=== PATIENT | male | born 1960 | race Caucasian/White ===

== ENCOUNTER → 2016-10-06 | Outpatient (REF) | payer BC, OTHER ==
[~2016-10-06] MED LIST: /FEXO18TA OR; ALLO300T OR; AMBI10TA OR; CLAR5CHW OR; DARV100T OR; DEPA500T OR; DILA2TAB; DRISDOL PO; DYAZ37.5 OR; EFFE150C OR; FLEXERIL PO; KETO-28; KETO-28 OR; LISI5TAB OR; LYRI150C OR; MAG OR; NEXI20CA OR; PAXI20TA; POTASSIUM CITRATE1 OR; PRIL20CA OR; ROBA750T OR; TOPI200T OR; TRIC145T19 OR; ULTR200T OR; VERALAN OR; VIT D 4000 PO; ZOCO40TA OR; [UNRECOGNIZED DRUG - OTHER]; desyrel OR; hydrocodone PO
[2016-10-06 13:23] LABS: FERRITIN 16 NG/ML (26-388); PERCENT SATURATION 28.5 % (19.7-37.4); PHOSPHORUS LEVEL 2.6 MG/DL (2.5-4.9); TOTAL IRON BINDING CAPACITY 403 UG/DL (250-450)
[2016-10-06 13:42] LABS: VITAMIN B12 LEVEL 1643 PG/ML
[2016-10-06 13:43] LABS: FOLATE > 24.0 NG/ML
[2016-10-06 15:02] LABS: PRETREATED FOLATE FOR RBCFOL 18.5 NG/ML
== END ==
LOC: M LAB REF 12:36
PROVIDERS: ATTEND Internal Medicine
DX: Z98.84 Bariatric surgery status (principal)

== ENCOUNTER → 2017-02-21 | Outpatient (REF) | payer BC ==
[2017-02-21 14:31] LABS: PERCENT SATURATION 18.9 % (19.7-50.0); PHOSPHORUS LEVEL 2.7 MG/DL (2.5-4.9)
[2017-02-23 11:33] LABS: PRETREATED FOLATE FOR RBCFOL 14.5 NG/ML
== END ==
LOC: M LAB REF 13:30
PROVIDERS: ATTEND Internal Medicine
DX: K91.2 Postsurgical malabsorption, not elsewhere classified (principal); Z98.84 Bariatric surgery status; E55.9 Vitamin D deficiency, unspecified

== ENCOUNTER → 2017-05-08 | Outpatient (REF) | payer BC | LOC: M LAB REF 19:44 | PROVIDERS: ATTEND Physician Assistant | DX: R19.7 Diarrhea, unspecified (principal) ==

== ENCOUNTER → 2017-07-30 | Outpatient (REF) | payer BC ==
[2017-07-31 15:37] LABS: IRON (FE) 80 UG/DL (65-175); PERCENT SATURATION 24.9 % (19.7-50.0); TOTAL IRON BINDING CAPACITY 321 UG/DL (250-450)
== END ==
LOC: M LAB REF 15:06
DX: Z98.84 Bariatric surgery status (principal); D50.9 Iron deficiency anemia, unspecified
CPT/HCPCS: 83550

== ENCOUNTER 2017-09-30 11:16 | Emergency (ER) | payer BC ==
[2017-09-30] MEDS: LIDOCAINE 2% MDV 20 ML VIAL SC (12:30)
== END 2017-09-30 13:36 | disposition home or self-care (01) ==
LOC: M ED 11:16
DX: S01.21XA Laceration without foreign body of nose, initial encounter (principal); W54.8XXA Other contact with dog, initial encounter; Y92.89 Other specified places as the place of occurrence of the external cause; I10 Essential (primary) hypertension; M54.2 Cervicalgia; G89.29 Other chronic pain; F43.10 Post-traumatic stress disorder, unspecified; Z79.899 Other long term (current) drug therapy; Z91.048 Other nonmedicinal substance allergy status; Z88.8 Allergy status to other drugs, medicaments and biological substances; Z98.0 Intestinal bypass and anastomosis status; Z98.890 Other specified postprocedural states
CPT/HCPCS: 12011

== ENCOUNTER → 2017-10-17 | Outpatient (REF) | payer BC ==
[2017-10-17 15:37] LABS: BLOOD UREA NITROGEN 18 MG/DL (7-18)
[2017-10-17 15:37] LABS: GLOMERULAR FILTRATION RATE > 60.0 (>56)
== END ==
LOC: M LABDRAW1 13:16
DX: Z01.812 Encounter for preprocedural laboratory examination (principal)
CPT/HCPCS: 82565

== ENCOUNTER → 2018-01-30 | Outpatient (REF) | payer BC ==
[2018-01-30 17:59] LABS: IRON (FE) 71 UG/DL (65-175); PERCENT SATURATION 22.3 % (19.7-50.0); TOTAL IRON BINDING CAPACITY 319 UG/DL (250-450)
[2018-01-30 18:05] LABS: FOLATE > 24.0 NG/ML; VITAMIN B12 LEVEL > 2000 PG/ML
[2018-02-06 17:28] LABS: VITAMIN B1 LEVEL WHOLE BLOOD 176.5 nmol/L (66.5-200.0)
== END ==
LOC: M LAB REF 17:07
DX: D50.9 Iron deficiency anemia, unspecified (principal); Z98.84 Bariatric surgery status
CPT/HCPCS: 82746

== ENCOUNTER → 2018-05-09 | Outpatient (REF) | payer BC | LOC: M LAB REF 17:20 | DX: S51.801A Unspecified open wound of right forearm, initial encounter (principal); X58.XXXA Exposure to other specified factors, initial encounter; Y92.9 Unspecified place or not applicable; Y93.9 Activity, unspecified ==

== ENCOUNTER → 2018-05-16 | Outpatient (REF) | payer BC | LOC: M LAB REF 17:22 | DX: S51.801A Unspecified open wound of right forearm, initial encounter (principal); W18.30XA Fall on same level, unspecified, initial encounter; Y92.009 Unspecified place in unspecified non-institutional (private) residence as the place of occurrence of the external cause | CPT/HCPCS: 88305 ==

== ENCOUNTER → 2018-07-10 | Outpatient (REF) | payer BC ==
[~2018-07-10] MED LIST changes: +CENTTAB PO; +EFFE150C2; +GABA-843; +MINI1CAP; +PRAZ1CAP; +REME45TA; +XYZA5TAB2 PO
== END ==
LOC: M LAB REF 19:13
PROVIDERS: ATTEND Physician Assistant Medical
DX: R19.7 Diarrhea, unspecified (principal)

== ENCOUNTER → 2018-07-18 | Outpatient (REF) | payer BC | LOC: M LAB REF 09:38 | PROVIDERS: ATTEND Physician Assistant | DX: A04.5 Campylobacter enteritis (principal) ==

== ENCOUNTER → 2018-08-06 | Outpatient (REF) | payer BC ==
[2018-08-06 18:30] LABS: IRON (FE) 79 UG/DL (65-175); PERCENT SATURATION 23.6 % (19.7-50.0); TOTAL IRON BINDING CAPACITY 335 UG/DL (250-450)
[2018-08-06 19:07] LABS: VITAMIN B12 LEVEL > 2000 PG/ML
[2018-08-07 17:35] LABS: FOLATE 16.4 NG/ML
== END ==
LOC: M LAB REF 17:33
PROVIDERS: ATTEND Internal Medicine
DX: Z98.84 Bariatric surgery status (principal); D50.9 Iron deficiency anemia, unspecified

== ENCOUNTER → 2018-08-26 | Outpatient (CLI) | payer BC ==
--- NOTE | 2018-09-07 23:38 | ECWPNPC ---
PATIENT NAME: JOE DOTSON : 1960 GENDER: MALE VISIT DATE: 08/26/2018 DISCHARGE DATE: 08/26/18 1152 VISIT LOCKED DATE TIME: PHYSICIAN: BARBRA HART MD RESOURCE: BARBRA HART MD REASON FOR APPOINTMENT 1. CHRONIC NECK PAIN HISTORY OF PRESENT ILLNESS NEW PATIENT CONSULT: WHEN DID YOUR PAIN FIRST START? . BRIEFLY DESCRIBE HOW YOUR PAIN STARTED? . HOW DOES YOUR PAIN CHANGE WITH TIME? . DOES YOUR PAIN AWAKEN YOU FROM SLEEP? . HOW MANY HOURS OF SLEEP DO YOU NORMALLY GET? . ANY DIAGNOSTIC TESTING? . FACILITY WHERE TESTS WERE DONE? ____. PAIN TREATMENT TREATMENT YES CANCER HAVE YOU EVER HAD ANY TYPE OF CANCER?NO NO. PAIN SCREENING: PATIENT HAS A COMPLAINT OF ACUTE OR CHRONIC PAIN :YES 58 YEAR OLD MALE PATIENT WITH A HISTORY OF CHRONIC NECK PAIN. THE PATIENT DESCRIBES THE PAIN ACHING, BURNING, AND CONTINUOUS WITH A PAIN SCORE OF 7-10/10 DEPENDING ON PHYSICAL ACTIVITY. 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 THE PATIENT SAYS THE PAIN STARTS IN HIS NECK AND RADIATES INTO HIS HEAD CAUSING HEADACHES AND DOWN INTO HIS SHOULDERS AND ARMS. THE PATIENT SAYS THAT HE HAS SOME NUMBNESS DOWN HIS ARMS. THE PATIENT HAS DIFFICULTY DOING DAILY ACTIVITIES SUCH WORKING AROUND HIS HOUSE, COOKING, AND CLEANING DUE TO THIS PAIN. THE PATIENT SAYS HE HAD A TUMOR REMOVED AND RADIATION OVER HIS LEFT SHOULDER WHERE THERE IS NOW A SCAR THAT SOMETIMES OPENS AND DRAINS. PATIENT DENIES UNEXPLAINABLE WEIGHT LOSS, FEVER, CHILLS, NEW CHANGES ON HIS URINARY OR BOWEL CONTROL. FALL RISK SCREENING: SCREENING :NO FALLS IN THE PAST YEAR ELIZABETH INVENTORY: QUESTIONNAIRE ASSESSEDTBD SCORE VALUE CALCULATED TBD CURRENT MEDICATIONS TAKING TRAMADOL HCL 50 MG TABLET 1 TABLET NEEDED ORALLY 3 TIMES DAILY NEEDED TAKING FLEXERIL 10 MG TABLET 1 TABLET ORALLY TWICE DAILY TAKING XYZAL 5 MG TABLET 1 TABLET IN THE EVENING ORALLY ONCE A DAY TAKING EFFEXOR XR 150 MG CAPSULE EXTENDED RELEASE 24 HOUR 2 CAPSULE WITH FOOD ORALLY ONCE A DAY TAKING EFFEXOR XR 75 MG CAPSULE EXTENDED RELEASE 24 HOUR 1 CAPSULE WITH FOOD ORALLY ONCE A DAY TAKING NEXIUM 40 MG CAPSULE DELAYED RELEASE 1 CAPSULE ORALLY TWICE DAILY TAKING CENTRUM ADULTS - TABLET ORALLY DAILY TAKING VITAMIN B12 500 MCG TABLET 1 TABLET ORALLY ONCE A DAY TAKING REMERON 45 MG TABLET 1 TABLET AT BEDTIME ORALLY ONCE A DAY TAKING LISINOPRIL 5 MG TABLET 1 TABLET ORALLY ONCE A DAY TAKING KLONOPIN 0.5 MG TABLET 1 TABLET ORALLY FOUR TIMES PER DAY TAKING NEURONTIN 300 MG CAPSULE 1 CAPSULE ORALLY TWICE DAILY TAKING PRAZOSIN HCL 2 MG CAPSULE 2 CAPSULE AT BEDTIME ORALLY ONCE A DAY TAKING TRAZODONE HCL 50 MG TABLET 1 TABLET AT BEDTIME ORALLY ONCE A DAY TAKING IRON 325 (65 FE) MG TABLET 1 TABLET ORALLY TWICE DAILY NOT-TAKING ALLOPURINOL 300 MG TABLET 1 TABLET ORALLY ONCE A DAY NOT-TAKING MAGNESIUM GLUCONATE 500 MG TABLET DIRECTED ORALLY NOT-TAKING VERAPAMIL HCL 300 MG CAPSULE EXTENDED RELEASE 24 HOUR 1 CAPSULE AT BEDTIME ORALLY ONCE A DAY NOT-TAKING ZOCOR 40 MG TABLET 1 TABLET EVERY EVENING ORALLY ONCE A DAY NOT-TAKING MYA 180 MG TABLET 1 TABLET ORALLY ONCE A DAY NOT-TAKING METHOCARBAMOL 750 MG TABLET 1 TABLET ORALLY EVERY 4 HRS NOT-TAKING DARVOCET-N 100 100-650 MG TABLET 1 TABLET NEEDED FOR PAIN ORALLY EVERY 4 HRS NOT-TAKING PAXIL 20 MG TABLET 1 TABLET IN THE MORNING ORALLY ONCE A DAY NOT-TAKING LYRICA 300 MG CAPSULE 1 CAPSULE ORALLY TWICE A DAY NOT-TAKING PRILOSEC 20 MG CAPSULE DELAYED RELEASE 1 CAPSULE ORALLY ONCE A DAY NOT-TAKING LUNESTA 2 MG TABLET 1 TABLET IMMEDIATELY BEFORE BEDTIME ORALLY ONCE A DAY NOT-TAKING ULTRAM ER 200 MG TABLET EXTENDED RELEASE 24 HOUR 1 TABLET ORALLY ONCE A DAY NOT-TAKING TOPAMAX 200 MG TABLET 1 TABLET ORALLY TWICE A DAY NOT-TAKING POTASSIUM CITRATE 1080 MG TABLET EXTENDED RELEASE 1 TABLET WITH MEALS ORALLY THREE TIMES A DAY MEDICATION LIST REVIEWED AND RECONCILED WITH THE PATIENT PAST MEDICAL HISTORY HYPERLIPIDEMIA ESOPHAGEAL REFLUX KIDNEY STONES HYPERTENSION PTSD BARRETTS ESOPHAGUS CHRONIC KIDNEY DISEASE SYNDROME BILATERRAL CARPAL TUNNEL ALLERGIES ZANAFLEX: BRADYCARDIA: SIDE EFFECTS SURGICAL HISTORY HERNIA REPAIR GALL BLADDER TUMOR LITHOTRIPSY GASTIC BYPASS 2012 ILATERAL CARPAL TUNNEL LEFT MOST RECENT [id number] FAMILY HISTORY FATHER: ALIVE MOTHER: , DIAGNOSED WITH CANCER SIBLINGS: DIAGNOSED WITH CANCER MATERNAL GRAND MOTHER: DIAGNOSED WITH DIABETES 2 SISTER(S) . 1 SON(S) , 1 DAUGHTER(S) - HEALTHY. NO PROSTATE,KIDNEY OR BLADDER CANCERMOTHER WITH BREAST CANCERSISTER WITH UTERINE CANCERGRANDFATHER UNKNOWN CANCER. SOCIAL HISTORY GENERAL: TOBACCO USE ARE YOU A:NONSMOKER ALCOHOL SCREENING DID YOU HAVE A DRINK CONTAINING ALCOHOL IN THE PAST YEAR?NO POINTS0 INTERPRETATIONNEGATIVE RECREATIONAL DRUG USE DRUG USE?NO CAFFEINE CAFFEINE USE?NO DRUZE DRUZE EPISCOPALIAN LANGUAGE LANGUAGES SPOKEN:CZECH EDUCATION LEVEL OF EDUCATION:NOT ANSWERED [employer] LEARNING BARRIERS / SPECIAL NEEDS SPECIAL DEVICES?YES CPAP OCCUPATION: DO YOU FEEL SAFE IN YOUR ENVIRONMENT? NO. DIET: DO YOU FEEL SAFE IN YOUR ENVIRONMENT? NODISABLED FROM WORK . EXERCISE: DO YOU FEEL SAFE IN YOUR ENVIRONMENT? NODISABLED FROM WORK , REGULAR PORTIION CONTROOLLED. MARITAL STATUS: DO YOU FEEL SAFE IN YOUR ENVIRONMENT? NODISABLED FROM WORK , REGULAR PORTIION CONTROOLLED, DAILY, WALKS. OTHERS AT HOME: DO YOU FEEL SAFE IN YOUR ENVIRONMENT? NODISABLED FROM WORK , REGULAR PORTIION CONTROOLLED, DAILY, WALKS, . IMMUNIZATION PROGRAM DO YOU FEEL SAFE IN YOUR ENVIRONMENT? NODISABLED FROM WORK , REGULAR PORTIION CONTROOLLED, DAILY, WALKS, , SPOUSE, CHILDREN. NEW PATIENT PAIN DIARY MONOGAMOUS? YES. HOUSING: PFS REFERRAL NEEDED? NO, CLERGY REFERRAL NEEDED? NO, PUBLIC HEALTH REFERRAL NEEDED? NO, WAS THE PROVIDER NOTIFIED OF ANY PERTINENT INFO? NO, HAS THE PATIENT BEEN EDUCATED REGARDING HIS/HER PLAN OF CARE? YES, HAS THE PATIENT BEEN EDUCATED REGARDING PAIN, THE RISK FOR PAIN, THE IMPORTANCE OF EFFECTIVE PAIN MANAGEMENT, AND THE PAIN ASSESSMENT PROCESS? YES. ADVANCE DIRECTIVE ADVANCE DIRECTIVE DISCUSSED WITH PATIENT:YES NOT A SMOKER OR ETOH. 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 HOSPITALIZATION/MAJOR DIAGNOSTIC PROCEDURE SURGERY RELATED REVIEW OF SYSTEMS REVIEWED BY: PROVIDER: BARBRA HART MD . CONSTITUTIONAL: ANY CHANGE IN YOUR MEDICAL CONDITION? NO . CHILLS NO . FEVER NO . INFECTION: DO YOU HAVE NEW INFECTIONS? NO . DO YOU HAVE HISTORY OF MRSA? NO . MUSCULOSKELETAL: ANY NEW PATTERNS OF PAIN OR NUMBNESS? NO . SYTEMIC LUPUS NO . GASTROENTEROLOGY: ANY NEW CHANGE IN BOWEL CONTROL? NO . BARRETTS ESOPHAGUS NO . CIRRHOSIS NO . HEPATITIS NO . LIVER FAILURE NO . ACID REFLUX YES . UNEXPLAINED WEIGHT LOSS NO . GENITOURINARY: ANY NEW CHANGE IN BLADDER CONTROL? NO . IS THERE A CHANCE YOU COULD BE ? NO . HEMATOLOGY/LYMPH: DO YOU TAKE ANY BLOOD THINNERS? (FOR EXAMPLE- COUMADIN, PLAVIX, AGGRENOX, PLATEL, PRADAXA, OR XARELTO) NO . WHEN WAS YOUR LAST DOSE? DATE: TIME: . LOW PLATELET COUNT NO . SICKLE CELL DISEASE NO . VON WILLIEBRANDS NO . FACTOR V LEIDEN NO . THALLASEMIA NO . ANEMIA NO . EASY BRUISING NO . NEUROLOGY: HAVE YOU FALLEN IN THE PAST 12 MONTHS? YES FEEDING CHICKENS GET UNDERFOOT AND FELL INTO WALL . ANY NEW EXTREMITY NUMBNESS OR WEAKNESS? NO RESULTS OF NERVE CONDUCTION SHOW DAMAGE IN NECK . HEAD INJURY NO . DEMENTIA NO . CEREBRAL PALSY NO . MULTIPLE SCLEROSIS NO . DIZZINESS NO . HEADACHE NO . STROKES NO . VERTIGO NO . CARDIOLOGY: DO YOU HAVE A PACEMAKER OR DEFIBRILLATOR? NO . ANGINA NO . HEART ATTACK NO . HEART SURGERY NO . CONGESTIVE HEART FAILURE/FLUID OVERLOAD NO . CHEST PAIN NO . HIGH BLOOD PRESSURE NO . IRREGULAR HEART BEAT NO . RESPIRATORY: HAVE YOU BEEN SICK IN THE PAST WEEK? NO . FEVER NO . FLU LIKE SYMPTOMS? NO . CPAP NO . BYPAP NO . ASTHMA NO . EMPHYSEMA NO . CHRONIC LUNG DISEASES NO . SHORTNESS OF BREATH ON EXERTION NO . DO YOU USE ANY TYPE OF TOBACCO (SMOKE, SMOKELESS, CHEW)? NO . COUGH NO . SNORING NO . INTEGUMENTARY: DO YOU HAVE ANY RASHES OR OPEN SORES? NO . ALLERGIC/IMMUNO: ARE YOU ALLERGIC TO IV DYE? NO . ANY NEW ALLERGIES? NO . PSYCHIATRIC: DO YOU HAVE THOUGHTS OF HURTING YOURSELF OR SOMEONE ELSE? 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 ARE YOU ABUSED, NEGLECTED, OR IN AN UNSAFE ENVIRONMENT? NO . ENDOCRINOLOGY: ARE YOU DIABETIC? NO . THYROID DISORDER NO . OTHER: DO YOU NEED ANY PRESCRIPTIONS? NO . IF YES, PLEASE LIST: ____ . ANY NEW PROBLEMS WITH YOUR MEDICATIONS? NO . WHEN DID YOU LAST EAT? ____ . WHEN DID YOU LAST DRINK? ____ . WHAT DID YOU LAST DRINK? ____ . NAME OF PERSON DRIVING YOU HOME? ____ . DO YOU HAVE ANY OTHER QUESTIONS OR CONCERNS NO . VITAL SIGNS WT 319 LBS, HT 69 IN, BMI 47.10 INDEX, BP 164/90 MM HG, HR 72 /MIN, RR 16 /MIN, TEMP 98.5 F, OXYGEN SAT % 95%, SAFE IN ENV? (Y/N) YES, NA INITIALS SC 10:25, REVIEWED BY: KG. EXAMINATION GENERAL EXAMINATION: PATIENT IS ALERT O X 3 AND COOPERATIVE. LUNGS CLEAR, TO AUSCULTATION. HEART: NO MURMURS OR GALLOPS; FACIAL CRANIAL NERVES ARE GROSSLY NORMAL. GOOD SYMMETRY OF FACIAL MUSCLE MOVEMENT. NORMAL VISUAL ROONEY. TENDERNESS OVER THE NECK AREA. PRESENCE OF TRIGGER POINTS AND BANDS OF TISSUE WITH RESTRICTION OF MOVEMENT OF THE NECK. PAIN INCREASES OVER THE CERVICAL FACET JOINTS WITH EXTENSION AND LATERAL ROTATION OF THE NECK. SCAR OVER THE LEFT SHOULDER WITH REDUCTION IN MUSCLE MASS. MRI OF THE CERVICAL SPINE DONE ON 10/24/2017 SHOWS FACET ARTHROPATHY CHANGES AND BULGING DISCS AT MULTIPLE LEVELS. EMG DONE ON 01/16/2018 SHOWS RADICULOPATHY AT C6-C7. ASSESSMENTS MYALGIA, OTHER SITE - M79.18 (PRIMARY) SPONDYLOSIS OF CERVICAL REGION WITHOUT MYELOPATHY OR RADICULOPATHY - M47.812 CERVICAL RADICULOPATHY - M54.12 TREATMENT MYALGIA, OTHER SITE CLINICAL NOTES: WE DISCUSSED SEVERAL ISSUES WITH MR. DOTSON'S PAIN MANAGEMENT CASE. DUE TO THE TRIGGER POINTS, BANDS OF TISSUE, AND RESTRICTION OF MOVEMENT, I WOULD LIKE TO MOVE FORWARD WITH A TRIGGER POINT INJECTION AT THIS TIME. WE DISCUSSED THE BENEFITS, RISKS, AND ALTERNATIVES OF THE INJECTION AND THE PATIENT WOULD LIKE TO PROCEED. I DISCUSSED THE CASE WITH DR. KIM REGARDING THE WOUND ON THE PATIENT'S LEFT SHOULDER AND WE ARE ABLE TO PROCEED WITH THE INJECTION. I WOULD ALSO LIKE TO DISCUSS THE CASE WITH DR. PARKER. DEPENDING ON THE RESULTS OF THE TRIGGER POINT INJECTION, THE PATIENT WILL CONSIDER A THERAPEUTIC FACET BLOCK IN THE FUTURE. THE PATIENT WILL FOLLOW UP IN 6 WEEKS. INSTRUCTIONS WERE GIVEN, QUESTIONS WERE ANSWERED, PATIENT REPORTS UNDERSTANDING AND AGREES WITH THE PLAN. I, AXEL SEVILLA, DOCUMENTED THE ABOVE INFORMATION ACTING A SCRIBE FOR DR. HART. I HAVE REVIEWED THE ABOVE DOCUMENT, WRITTEN BY AXEL DIAL AND I VERIFY THAT IT IS ACCURATE. DEAR DR. PARKER:THANK YOU FOR YOUR KIND REFERRAL OF MR. DOTSON. IF YOU WANT TO DISCUSS HIS CASE WITH ME PLEASE CALL ME AT THE PAIN CENTER AT [phone]. SINCERELY,BARBRA HART, [facility]. OTHERS NOTES: TRIGGER POINT INJECTION: YOUR EXPERIENCE MATERIAL WAS PRINTED,TRIGGER POINT INJECTION MATERIAL WAS PRINTED. PREVENTIVE MEDICINE PAIN CLINIC TEACHING: PROCEDURE TEACHING PT STATED HE HAS HAD TRIGGER POINT INJECTIONS IN THE PAST SO HE WAS FAMILIAR WITH THE PROCEDURE. PRE-PROCEDURE INSTRUCTIONS REVIEWED WITH PT AND HE VERBALIZED UNDERSTANDING. AD. PROCEDURE CODES FA211 ESTABILISHED PATIENT [facility] CHARGE G8427 CURRENT MEDS W/DOSAGES DOCUMENTED G8730 PAIN ASSESS POS TOOL F/U PLAN DOC DISPOSITION & COMMUNICATION FOLLOW UP 6 WEEKS ELECTRONICALLY SIGNED BY BARBRA HART MD, MD ON 09/07/2018 AT 05:26 PM EST DISCLAIMER : THIS IS A VISIT SUMMARY EXTRACTED FROM THE [employer] CHART. IT IS NOT A COPY OF THE [employer] PROGRESS NOTE. PHIL
== END ==
LOC: M PAIN 10:30
PROVIDERS: ATTEND Anesthesiology
DX: M79.18 Myalgia, other site (principal); M47.812 Spondylosis without myelopathy or radiculopathy, cervical region; M54.12 Radiculopathy, cervical region; K21.9 Gastro-esophageal reflux disease without esophagitis; E78.5 Hyperlipidemia, unspecified; F43.10 Post-traumatic stress disorder, unspecified; N18.9 Chronic kidney disease, unspecified; E66.01 Morbid (severe) obesity due to excess calories; Z68.42 Body mass index [BMI] 45.0-49.9, adult; Z79.899 Other long term (current) drug therapy; Z88.8 Allergy status to other drugs, medicaments and biological substances; Z98.84 Bariatric surgery status

== ENCOUNTER → 2018-09-03 | Outpatient (CLI) | payer BC ==
[~2018-09-03] MED LIST changes: +BUPIVACAINE HCL 0.25% 10 ML VIAL As Ordered ONE; +BUPIVACAINE HCL 0.25% 30 ML VIAL As Ordered ONE; +TRIAMCINOLONE ACETONIDE SUSP 40 MG/ML VIAL (J3301) As Ordered ONE; +diazePAM 5 MG TAB As Ordered ONE; +oxyCODONE 5MG TAB As Ordered ONE
--- NOTE | 2018-09-19 00:05 | ECWPNPC ---
PATIENT NAME: JOE DOTSON : 1960 GENDER: MALE VISIT DATE: 09/03/2018 DISCHARGE DATE: 09/03/18 1624 VISIT LOCKED DATE TIME: PHYSICIAN: BARBRA HART MD RESOURCE: BARBRA HART MD REASON FOR APPOINTMENT 1. TPI HISTORY OF PRESENT ILLNESS HISTORY OF PRESENT ILLNESS: PAIN THE PATIENT DESCRIBES THE PAIN... FALL RISK SCREENING: SCREENING :NO FALLS IN THE PAST YEAR CURRENT MEDICATIONS TAKING TRAMADOL HCL 50 MG TABLET 1 TABLET NEEDED ORALLY 3 TIMES DAILY NEEDED, NOTES: 09/03/18 AM TAKING FLEXERIL 10 MG TABLET 1 TABLET ORALLY TWICE DAILY, NOTES: 09/03/18 AM TAKING XYZAL 5 MG TABLET 1 TABLET IN THE EVENING ORALLY ONCE A DAY, NOTES: 09/03/18 AM TAKING EFFEXOR XR 150 MG CAPSULE EXTENDED RELEASE 24 HOUR 2 CAPSULE WITH FOOD ORALLY ONCE A DAY, NOTES: 09/03/18 AM TAKING EFFEXOR XR 75 MG CAPSULE EXTENDED RELEASE 24 HOUR 1 CAPSULE WITH FOOD ORALLY ONCE A DAY, NOTES: 09/03/18 AM TAKING NEXIUM 40 MG CAPSULE DELAYED RELEASE 1 CAPSULE ORALLY TWICE DAILY, NOTES: 09/03/18 AM TAKING CENTRUM ADULTS - TABLET ORALLY DAILY, NOTES: 09/03/18 AM TAKING VITAMIN B12 500 MCG TABLET 1 TABLET ORALLY ONCE A DAY, NOTES: 09/03/18 AM TAKING REMERON 45 MG TABLET 1 TABLET AT BEDTIME ORALLY ONCE A DAY, NOTES: 09/02/18 TAKING LISINOPRIL 5 MG TABLET 1 TABLET ORALLY ONCE A DAY, NOTES: 09/02/18 TAKING KLONOPIN 0.5 MG TABLET 1 TABLET ORALLY FOUR TIMES PER DAY, NOTES: 09/03/18 AM TAKING NEURONTIN 300 MG CAPSULE 1 CAPSULE ORALLY TWICE DAILY, NOTES: 09/03/18 AM TAKING PRAZOSIN HCL 2 MG CAPSULE 2 CAPSULE AT BEDTIME ORALLY ONCE A DAY, NOTES: 09/02/18 TAKING TRAZODONE HCL 50 MG TABLET 1 TABLET AT BEDTIME ORALLY ONCE A DAY, NOTES: 09/02/18 TAKING IRON 325 (65 FE) MG TABLET 1 TABLET ORALLY TWICE DAILY, NOTES: 09/03/18 AM NOT-TAKING ALLOPURINOL 300 MG TABLET 1 TABLET ORALLY ONCE A DAY NOT-TAKING MAGNESIUM GLUCONATE 500 MG TABLET DIRECTED ORALLY NOT-TAKING VERAPAMIL HCL 300 MG CAPSULE EXTENDED RELEASE 24 HOUR 1 CAPSULE AT BEDTIME ORALLY ONCE A DAY NOT-TAKING ZOCOR 40 MG TABLET 1 TABLET EVERY EVENING ORALLY ONCE A DAY NOT-TAKING MYA 180 MG TABLET 1 TABLET ORALLY ONCE A DAY NOT-TAKING METHOCARBAMOL 750 MG TABLET 1 TABLET ORALLY EVERY 4 HRS NOT-TAKING DARVOCET-N 100 100-650 MG TABLET 1 TABLET NEEDED FOR PAIN ORALLY EVERY 4 HRS NOT-TAKING PAXIL 20 MG TABLET 1 TABLET IN THE MORNING ORALLY ONCE A DAY NOT-TAKING LYRICA 300 MG CAPSULE 1 CAPSULE ORALLY TWICE A DAY NOT-TAKING PRILOSEC 20 MG CAPSULE DELAYED RELEASE 1 CAPSULE ORALLY ONCE A DAY NOT-TAKING LUNESTA 2 MG TABLET 1 TABLET IMMEDIATELY BEFORE BEDTIME ORALLY ONCE A DAY NOT-TAKING ULTRAM ER 200 MG TABLET EXTENDED RELEASE 24 HOUR 1 TABLET ORALLY ONCE A DAY NOT-TAKING TOPAMAX 200 MG TABLET 1 TABLET ORALLY TWICE A DAY NOT-TAKING POTASSIUM CITRATE 1080 MG TABLET EXTENDED RELEASE 1 TABLET WITH MEALS ORALLY THREE TIMES A DAY MEDICATION LIST REVIEWED AND RECONCILED WITH THE PATIENT PAST MEDICAL HISTORY HYPERLIPIDEMIA ESOPHAGEAL REFLUX KIDNEY STONES HYPERTENSION PTSD BARRETTS ESOPHAGUS CHRONIC KIDNEY DISEASE SYNDROME BILATERRAL CARPAL TUNNEL ALLERGIES ZANAFLEX: BRADYCARDIA: SIDE EFFECTS SURGICAL HISTORY HERNIA REPAIR GALL BLADDER TUMOR LITHOTRIPSY GASTIC BYPASS 2012 ILATERAL CARPAL TUNNEL LEFT MOST RECENT [phone] FAMILY HISTORY FATHER: ALIVE MOTHER: , DIAGNOSED WITH CANCER SIBLINGS: DIAGNOSED WITH CANCER MATERNAL GRAND MOTHER: DIAGNOSED WITH DIABETES 2 SISTER(S) . 1 SON(S) , 1 DAUGHTER(S) - HEALTHY. NO PROSTATE,KIDNEY OR BLADDER CANCERMOTHER WITH BREAST CANCERSISTER WITH UTERINE CANCERGRANDFATHER UNKNOWN CANCER. SOCIAL HISTORY GENERAL: TOBACCO USE ARE YOU A:NONSMOKER ALCOHOL SCREENING DID YOU HAVE A DRINK CONTAINING ALCOHOL IN THE PAST YEAR?NO POINTS0 INTERPRETATIONNEGATIVE RECREATIONAL DRUG USE DRUG USE?NO CAFFEINE CAFFEINE USE?NO ZOROASTRIAN ZOROASTRIAN SAMARITAN LANGUAGE LANGUAGES SPOKEN:TAMAZIGHT EDUCATION LEVEL OF EDUCATION:NOT ANSWERED [employer] LEARNING BARRIERS / SPECIAL NEEDS SPECIAL DEVICES?YES CPAP OCCUPATION: DO YOU FEEL SAFE IN YOUR ENVIRONMENT? NO. DIET: DO YOU FEEL SAFE IN YOUR ENVIRONMENT? NODISABLED FROM WORK . EXERCISE: DO YOU FEEL SAFE IN YOUR ENVIRONMENT? NODISABLED FROM WORK , REGULAR PORTIION CONTROOLLED. MARITAL STATUS: DO YOU FEEL SAFE IN YOUR ENVIRONMENT? NODISABLED FROM WORK , REGULAR PORTIION CONTROOLLED, DAILY, WALKS. OTHERS AT HOME: DO YOU FEEL SAFE IN YOUR ENVIRONMENT? NODISABLED FROM WORK , REGULAR PORTIION CONTROOLLED, DAILY, WALKS, . IMMUNIZATION PROGRAM DO YOU FEEL SAFE IN YOUR ENVIRONMENT? NODISABLED FROM WORK , REGULAR PORTIION CONTROOLLED, DAILY, WALKS, , SPOUSE, CHILDREN. NEW PATIENT PAIN DIARY MONOGAMOUS? YES. PAIN CLINIC PFS, CLERGY, PUBLIC HEALTH REFERRALS PFS REFERRAL NEEDED?NO CLERGY REFERRAL NEEDED?NO PUBLIC HEALTH REFERRAL NEEDED?NO WAS THE PROVIDER NOTIFIED OF ANY PERTINENT INFO?NO HAS THE PATIENT BEEN EDUCATED REGARDING HIS/HER PLAN OF CARE?YES HAS THE PATIENT BEEN EDUCATED REGARDING PAIN, THE RISK FOR PAIN, THE IMPORTANCE OF EFFECTIVE PAIN MANAGEMENT, AND THE PAIN ASSESSMENT PROCESS?YES HOUSING: PFS REFERRAL NEEDED? NO, CLERGY REFERRAL NEEDED? NO, PUBLIC HEALTH REFERRAL NEEDED? NO, WAS THE PROVIDER NOTIFIED OF ANY PERTINENT INFO? NO, HAS THE PATIENT BEEN EDUCATED REGARDING HIS/HER PLAN OF CARE? YES, HAS THE PATIENT BEEN EDUCATED REGARDING PAIN, THE RISK FOR PAIN, THE IMPORTANCE OF EFFECTIVE PAIN MANAGEMENT, AND THE PAIN ASSESSMENT PROCESS? YES. ADVANCE DIRECTIVE ADVANCE DIRECTIVE DISCUSSED WITH PATIENT:YES DECLINED NOT A SMOKER OR ETOH. 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 HOSPITALIZATION/MAJOR DIAGNOSTIC PROCEDURE SURGERY RELATED REVIEW OF SYSTEMS REVIEWED BY: PROVIDER: . CONSTITUTIONAL: ANY CHANGE IN YOUR MEDICAL CONDITION? NO . CHILLS NO . FEVER NO . INFECTION: DO YOU HAVE NEW INFECTIONS? NO . DO YOU HAVE HISTORY OF MRSA? NO . MUSCULOSKELETAL: ANY NEW PATTERNS OF PAIN OR NUMBNESS? NO . GASTROENTEROLOGY: ANY NEW CHANGE IN BOWEL CONTROL? NO . GENITOURINARY: ANY NEW CHANGE IN BLADDER CONTROL? NO . IS THERE A CHANCE YOU COULD BE ? NO . HEMATOLOGY/LYMPH: DO YOU TAKE ANY BLOOD THINNERS? (FOR EXAMPLE- COUMADIN, PLAVIX, AGGRENOX, PLATEL, PRADAXA, OR XARELTO) NO . WHEN WAS YOUR LAST DOSE? DATE: TIME: . NEUROLOGY: HAVE YOU FALLEN IN THE PAST 12 MONTHS? YES, FELL 2 DAYS AGO FEEDING CHICKENS, TRIPPED OVER THEM, PT DENIES INJURIES . ANY NEW EXTREMITY NUMBNESS OR WEAKNESS? NO . CARDIOLOGY: DO YOU HAVE A PACEMAKER OR DEFIBRILLATOR? NO . RESPIRATORY: HAVE YOU BEEN SICK IN THE PAST WEEK? NO . FEVER NO . FLU LIKE SYMPTOMS? NO . COUGH NO . INTEGUMENTARY: DO YOU HAVE ANY RASHES OR OPEN SORES? YES, LEFT WRIST S/P CARPAL TUNNEL REPAIR . ALLERGIC/IMMUNO: ARE YOU ALLERGIC TO IV DYE? NO . ANY NEW ALLERGIES? NO . PSYCHIATRIC: DO YOU HAVE THOUGHTS OF HURTING YOURSELF OR SOMEONE ELSE? NO . ARE YOU ABUSED, NEGLECTED, OR IN AN UNSAFE ENVIRONMENT? YES, PT STATES HE HAS PTSD SOMETIMES THOUGHTS OF HURTING SELF, NO PLAN, JUST THOUGHTS . ENDOCRINOLOGY: ARE YOU DIABETIC? NO . OTHER: DO YOU NEED ANY PRESCRIPTIONS? NO . IF YES, PLEASE LIST: ____ . ANY NEW PROBLEMS WITH YOUR MEDICATIONS? NO . WHEN DID YOU LAST EAT? 09/03/18 0600 . WHEN DID YOU LAST DRINK? 09/03/18 1200 . WHAT DID YOU LAST DRINK? GATORADE . NAME OF PERSON DRIVING YOU HOME? DAD . DO YOU HAVE ANY OTHER QUESTIONS OR CONCERNS NO . VITAL SIGNS WT 313.6 LBS, HT 69 IN, BMI 46.31 INDEX, BP 160/82 MM HG, HR 70 /MIN, RR 16 /MIN, TEMP 98.0 F, OXYGEN SAT % 955, NA INITIALS AW 1407, REVIEWED BY: EM. ASSESSMENTS MYALGIA, OTHER SITE - M79.18 (PRIMARY) PROCEDURES PN TRIGGER POINT INJECTION WITH STEROIDS PRE PROCEDURE DIAGNOSIS 1. MYALGIA 2. PAIN AT BILATERAL NECK AREA AND BILATERAL SHOULDER AREA POST PROCEDURE DIAGNOSIS 1. MYALGIA 2. PAIN AT BILATERAL NECK AREA AND BILATERAL SHOULDER AREA PROCEDURE TRIGGER POINT INJECTION AT BILATERAL NECK AREA AND BILATERAL SHOULDER AREA SURGEON DR. BARBRA HART PACKAGER NONE ANESTHESIA LOCAL PRE PROCEDURE NOTE THE PATIENT HAS A HISTORY OF CHRONIC PAIN AT THE RIGHT AND LEFT NECK AREA AND RIGHT AND LEFT SHOULDER AREA. I EVALUATE THE PATIENT AND REVIEWED THE CHART. THERE IS EVIDENCE OF BANDS OF TISSUE WITH RESTRICTION OF MOVEMENT AND PRESENCE OF TRIGGER POINT AT THE AFFECTED AREA. I WENT OVER THE RISKS, ALTERNATIVES, AND BENEFITS ASSOCIATED WITH THIS PROCEDURE. THE PATIENT WOULD LIKE TO PROCEED AND GIVE CONSENT TO PERFORMED THE PROCEDURE. THE PATIENT DENIES UNEXPLAINABLE WEIGHT LOSS, FEVER, CHILLS, OR NEW CHANGES IN URINARY OR BOWEL CONTROL DESCRIPTION OF PROCEDURE THE PATIENT WAS BROUGHT TO THE PROCEDURE ROOM AND PLACED IN THE SITTING POSITION. THE AREA WAS CLEANED WITH ALCOHOL. THE PROCEDURE WAS DONE USING ASEPTIC STERILE TECHNIQUE. I CHECKED LATERALITY AND THE LEVEL WHERE THE PROCEDURE WAS GOING TO BE PERFORMED WITH THE PATIENT AND THE SUPPORTING STAFF AT THE MOMENT OF THE TIME OUT IN THE PROCEDURE ROOM. USING A 25-GAUGE NEEDLE, TRIGGER POINTS WERE INJECTED AT THE RIGHT AND LEFT NECK AREA AND RIGHT AND LEFT SHOULDER AREA WITH A TOTAL OF 40 ML OF BUPIVACAINE 0.25% AND KENALOG 40 MG. THERE WAS NO EVIDENCE OF BLOOD, PARESTHESIA OR CEREBROSPINAL FLUID DURING THE PROCEDURE. THE PATIENT WAS SENT TO THE RECOVERY ROOM. THE PATIENT WAS MOVING THE EXTREMITIES AND DOING WELL. THERE WAS NO COMPLICATION DURING THE PROCEDURE POST PROCEDURE NOTE THE PATIENT WILL BE SEEN IN A FOLLOW UP IN THE NEXT FEW WEEKS. INSTRUCTIONS WERE GIVEN, QUESTIONS WERE ANSWERED, AND THE PATIENT EXPRESSED UNDERSTANDING AND AGREES WITH THE PLAN. I, AXEL SEVILLA, DOCUMENTED THE ABOVE INFORMATION ACTING A SCRIBE FOR DR. HART. I HAVE REVIEWED THE ABOVE DOCUMENT, WRITTEN BY AXEL DIAL AND I VERIFY THAT IT IS ACCURATE. PROCEDURE CODES 32790 INJECT TRIGGER POINTS 3/> DISPOSITION & COMMUNICATION FOLLOW UP 3 WEEKS ELECTRONICALLY SIGNED BY BARBRA HART MD, MD ON 09/18/2018 AT 06:43 AM EST DISCLAIMER : THIS IS A VISIT SUMMARY EXTRACTED FROM THE [employer] CHART. IT IS NOT A COPY OF THE [employer] PROGRESS NOTE. MTDKrish
== END ==
LOC: M PAIN 14:15
PROVIDERS: ATTEND Anesthesiology
DX: M79.18 Myalgia, other site (principal); M54.2 Cervicalgia; M25.511 Pain in right shoulder; M25.512 Pain in left shoulder; E78.5 Hyperlipidemia, unspecified; I12.9 Hypertensive chronic kidney disease with stage 1 through stage 4 chronic kidney disease, or unspecified chronic kidney disease; F43.10 Post-traumatic stress disorder, unspecified; K22.70 Barrett's esophagus without dysplasia; N18.9 Chronic kidney disease, unspecified; E66.01 Morbid (severe) obesity due to excess calories; Z68.42 Body mass index [BMI] 45.0-49.9, adult; Z79.899 Other long term (current) drug therapy; Z88.8 Allergy status to other drugs, medicaments and biological substances; Z98.84 Bariatric surgery status
CPT/HCPCS: 20553; J3301

== ENCOUNTER → 2018-10-18 | Outpatient (CLI) | payer BC ==
[~2018-10-18] MED LIST changes: -BUPIVACAINE HCL 0.25% 10 ML VIAL As Ordered ONE; -BUPIVACAINE HCL 0.25% 30 ML VIAL As Ordered ONE; -TRIAMCINOLONE ACETONIDE SUSP 40 MG/ML VIAL (J3301) As Ordered ONE; -diazePAM 5 MG TAB As Ordered ONE; -oxyCODONE 5MG TAB As Ordered ONE
--- NOTE | 2018-10-31 01:49 | ECWPNPC ---
PATIENT NAME: JOE DOTSON : 1960 GENDER: MALE VISIT DATE: 10/18/2018 DISCHARGE DATE: 10/18/18 1218 VISIT LOCKED DATE TIME: PHYSICIAN: BARBRA HART MD RESOURCE: BARBRA HART MD REASON FOR APPOINTMENT 1. POST PROC HISTORY OF PRESENT ILLNESS HISTORY OF PRESENT ILLNESS: PAIN THE PATIENT DESCRIBES THE PAIN... 58 YEAR OLD MALE PATIENT WITH CHRONIC NECK PAIN. THE PATIENT DESCRIBES THE PAIN ACHING, BURNING, SORE, TENDER, STABBING, AND CONTINUOUS WITH A PAIN SCORE OF 7-10/10 DEPENDING ON PHYSICAL ACTIVITY. THE PATIENT SAYS HIS PAIN STARTS IN HIS NECK AND RADIATES UP CAUSING HEADACHES. THE PATIENT WAS HERE FOR TRIGGER POINT INJECTIONS ON 09/03/2018 AND REPORTS HAVING GOOD PAIN RELIEF FOR 2-3 WEEKS AND THEN HIS PAIN RETURNED. PATIENT DENIES UNEXPLAINABLE WEIGHT LOSS, FEVER, CHILLS, NEW CHANGES ON HIS URINARY OR BOWEL CONTROL. FALL RISK SCREENING: SCREENING :NO FALLS REPORTED IN THE LAST YEAR CURRENT MEDICATIONS TAKING TRAMADOL HCL 50 MG TABLET 1 TABLET NEEDED ORALLY 3 TIMES DAILY NEEDED, NOTES: 09/03/18 AM TAKING FLEXERIL 10 MG TABLET 1 TABLET ORALLY TWICE DAILY, NOTES: 09/03/18 AM TAKING XYZAL 5 MG TABLET 1 TABLET IN THE EVENING ORALLY ONCE A DAY, NOTES: 09/03/18 AM TAKING EFFEXOR XR 150 MG CAPSULE EXTENDED RELEASE 24 HOUR 2 CAPSULE WITH FOOD ORALLY ONCE A DAY, NOTES: 09/03/18 AM TAKING EFFEXOR XR 75 MG CAPSULE EXTENDED RELEASE 24 HOUR 1 CAPSULE WITH FOOD ORALLY ONCE A DAY, NOTES: 09/03/18 AM TAKING NEXIUM 40 MG CAPSULE DELAYED RELEASE 1 CAPSULE ORALLY TWICE DAILY, NOTES: 09/03/18 AM TAKING CENTRUM ADULTS - TABLET ORALLY DAILY, NOTES: 09/03/18 AM TAKING VITAMIN B12 500 MCG TABLET 1 TABLET ORALLY ONCE A DAY, NOTES: 09/03/18 AM TAKING REMERON 45 MG TABLET 1 TABLET AT BEDTIME ORALLY ONCE A DAY, NOTES: 09/02/18 TAKING LISINOPRIL 5 MG TABLET 1 TABLET ORALLY ONCE A DAY, NOTES: 09/02/18 TAKING KLONOPIN 0.5 MG TABLET 1 TABLET ORALLY FOUR TIMES PER DAY, NOTES: 09/03/18 AM TAKING NEURONTIN 300 MG CAPSULE 1 CAPSULE ORALLY TWICE DAILY, NOTES: 09/03/18 AM TAKING PRAZOSIN HCL 2 MG CAPSULE 2 CAPSULE AT BEDTIME ORALLY ONCE A DAY, NOTES: 09/02/18 TAKING TRAZODONE HCL 50 MG TABLET 2 TABLETS AT BEDTIME ORALLY ONCE A DAY, NOTES: 09/02/18 TAKING IRON 325 (65 FE) MG TABLET 1 TABLET ORALLY TWICE DAILY, NOTES: 09/03/18 AM NOT-TAKING ALLOPURINOL 300 MG TABLET 1 TABLET ORALLY ONCE A DAY NOT-TAKING MAGNESIUM GLUCONATE 500 MG TABLET DIRECTED ORALLY NOT-TAKING VERAPAMIL HCL 300 MG CAPSULE EXTENDED RELEASE 24 HOUR 1 CAPSULE AT BEDTIME ORALLY ONCE A DAY NOT-TAKING ZOCOR 40 MG TABLET 1 TABLET EVERY EVENING ORALLY ONCE A DAY NOT-TAKING MYA 180 MG TABLET 1 TABLET ORALLY ONCE A DAY NOT-TAKING METHOCARBAMOL 750 MG TABLET 1 TABLET ORALLY EVERY 4 HRS NOT-TAKING DARVOCET-N 100 100-650 MG TABLET 1 TABLET NEEDED FOR PAIN ORALLY EVERY 4 HRS NOT-TAKING PAXIL 20 MG TABLET 1 TABLET IN THE MORNING ORALLY ONCE A DAY NOT-TAKING LYRICA 300 MG CAPSULE 1 CAPSULE ORALLY TWICE A DAY NOT-TAKING PRILOSEC 20 MG CAPSULE DELAYED RELEASE 1 CAPSULE ORALLY ONCE A DAY NOT-TAKING LUNESTA 2 MG TABLET 1 TABLET IMMEDIATELY BEFORE BEDTIME ORALLY ONCE A DAY NOT-TAKING ULTRAM ER 200 MG TABLET EXTENDED RELEASE 24 HOUR 1 TABLET ORALLY ONCE A DAY NOT-TAKING TOPAMAX 200 MG TABLET 1 TABLET ORALLY TWICE A DAY NOT-TAKING POTASSIUM CITRATE 1080 MG TABLET EXTENDED RELEASE 1 TABLET WITH MEALS ORALLY THREE TIMES A DAY MEDICATION LIST REVIEWED AND RECONCILED WITH THE PATIENT PAST MEDICAL HISTORY HYPERLIPIDEMIA ESOPHAGEAL REFLUX KIDNEY STONES HYPERTENSION PTSD BARRETTS ESOPHAGUS CHRONIC KIDNEY DISEASE SYNDROME BILATERRAL CARPAL TUNNEL ALLERGIES ZANAFLEX: BRADYCARDIA - SIDE EFFECTS SURGICAL HISTORY HERNIA REPAIR CHOLECYSTECTOMY TUMOR RESECTED LEFT SHOULDER LITHOTRIPSY GASTIC BYPASS 2013 BILATERAL CARPAL TUNNEL LEFT MOST RECENT [id number] FAMILY HISTORY FATHER: ALIVE MOTHER: , DIAGNOSED WITH CANCER SIBLINGS: CANCER MATERNAL GRAND MOTHER: DIABETES 2 SISTER(S) . 1 SON(S) , 1 DAUGHTER(S) - HEALTHY. NO PROSTATE,KIDNEY OR BLADDER CANCER\\NMOTHER WITH BREAST CANCER\\NSISTER WITH UTERINE CANCER\\NGRANDFATHER UNKNOWN CANCER. SOCIAL HISTORY GENERAL: TOBACCO USE ARE YOU A:NONSMOKER ALCOHOL SCREENING DID YOU HAVE A DRINK CONTAINING ALCOHOL IN THE PAST YEAR?NO POINTS0 INTERPRETATIONNEGATIVE RECREATIONAL DRUG USE DRUG USE?NO CAFFEINE CAFFEINE USE?NO FAITH FAITH [employer] LANGUAGE LANGUAGES SPOKEN:ARABIC EDUCATION LEVEL OF EDUCATION:NOT ANSWERED [employer] LEARNING BARRIERS / SPECIAL NEEDS SPECIAL DEVICES?YES CPAP OCCUPATION: DO YOU FEEL SAFE IN YOUR ENVIRONMENT? NO. DIET: DO YOU FEEL SAFE IN YOUR ENVIRONMENT? NODISABLED FROM WORK . EXERCISE: DO YOU FEEL SAFE IN YOUR ENVIRONMENT? NODISABLED FROM WORK , REGULAR PORTIION CONTROOLLED. MARITAL STATUS: DO YOU FEEL SAFE IN YOUR ENVIRONMENT? NODISABLED FROM WORK , REGULAR PORTIION CONTROOLLED, DAILY, WALKS. OTHERS AT HOME: DO YOU FEEL SAFE IN YOUR ENVIRONMENT? NODISABLED FROM WORK , REGULAR PORTIION CONTROOLLED, DAILY, WALKS, . IMMUNIZATION PROGRAM DO YOU FEEL SAFE IN YOUR ENVIRONMENT? NODISABLED FROM WORK , REGULAR PORTIION CONTROOLLED, DAILY, WALKS, , SPOUSE, CHILDREN. NEW PATIENT PAIN DIARY MONOGAMOUS? YES. PAIN CLINIC PFS, CLERGY, PUBLIC HEALTH REFERRALS PFS REFERRAL NEEDED?NO CLERGY REFERRAL NEEDED?NO PUBLIC HEALTH REFERRAL NEEDED?NO WAS THE PROVIDER NOTIFIED OF ANY PERTINENT INFO?NO HAS THE PATIENT BEEN EDUCATED REGARDING HIS/HER PLAN OF CARE?YES HAS THE PATIENT BEEN EDUCATED REGARDING PAIN, THE RISK FOR PAIN, THE IMPORTANCE OF EFFECTIVE PAIN MANAGEMENT, AND THE PAIN ASSESSMENT PROCESS?YES HOUSING: PFS REFERRAL NEEDED? NO, CLERGY REFERRAL NEEDED? NO, PUBLIC HEALTH REFERRAL NEEDED? NO, WAS THE PROVIDER NOTIFIED OF ANY PERTINENT INFO? NO, HAS THE PATIENT BEEN EDUCATED REGARDING HIS/HER PLAN OF CARE? YES, HAS THE PATIENT BEEN EDUCATED REGARDING PAIN, THE RISK FOR PAIN, THE IMPORTANCE OF EFFECTIVE PAIN MANAGEMENT, AND THE PAIN ASSESSMENT PROCESS? YES. ADVANCE DIRECTIVE ADVANCE DIRECTIVE DISCUSSED WITH PATIENT:YES DECLINED INFORMATION OR ASSISTANCE AT THIS TIME NOT A SMOKER OR ETOH. FLEXOGRAPHIC PRESS HELPER BY PROFESSIONREVIEWED WITH PT, 10/18/18 1130 LAS. HOSPITALIZATION/MAJOR DIAGNOSTIC PROCEDURE SURGERY RELATED REVIEW OF SYSTEMS REVIEWED BY: PROVIDER: BARBRA HART MD . CONSTITUTIONAL: ANY CHANGE IN YOUR MEDICAL CONDITION? NO . CHILLS NO . FEVER NO . INFECTION: DO YOU HAVE NEW INFECTIONS? NO . DO YOU HAVE HISTORY OF MRSA? NO . MUSCULOSKELETAL: ANY NEW PATTERNS OF PAIN OR NUMBNESS? PT HAD TRIGGER POINT INJECTIONS 09/03/18, STATES THEY HELPED HIM FOR ABOUT 2 WEEKS, BUT PAIN RETURNED THE SAME BASELINE . GASTROENTEROLOGY: ANY NEW CHANGE IN BOWEL CONTROL? NO . GENITOURINARY: ANY NEW CHANGE IN BLADDER CONTROL? NO . IS THERE A CHANCE YOU COULD BE ? NO . HEMATOLOGY/LYMPH: DO YOU TAKE ANY BLOOD THINNERS? (FOR EXAMPLE- COUMADIN, PLAVIX, AGGRENOX, PLATEL, PRADAXA, OR XARELTO) NO . WHEN WAS YOUR LAST DOSE? DATE: TIME: . NEUROLOGY: HAVE YOU FALLEN IN THE PAST 12 MONTHS? PT REPORTS HE TRIPPED OVER SOME CHICKENS A FEW WEEKS AGO AND FELL ONTO HIS KNEES, PT DENIES INJURY, NO ED VISIT, NO XRAYS. . ANY NEW EXTREMITY NUMBNESS OR WEAKNESS? NO . CARDIOLOGY: DO YOU HAVE A PACEMAKER OR DEFIBRILLATOR? NO . RESPIRATORY: HAVE YOU BEEN SICK IN THE PAST WEEK? NO . FEVER NO . FLU LIKE SYMPTOMS? NO . COUGH NO . INTEGUMENTARY: DO YOU HAVE ANY RASHES OR OPEN SORES? PT REPORTS AN OPEN AREA ON LEFT SHOULDER, BEING TREATED AT THE WOUND CENTER . ALLERGIC/IMMUNO: ARE YOU ALLERGIC TO IV DYE? NO . ANY NEW ALLERGIES? NO . PSYCHIATRIC: DO YOU HAVE THOUGHTS OF HURTING YOURSELF OR SOMEONE ELSE? NO . ARE YOU ABUSED, NEGLECTED, OR IN AN UNSAFE ENVIRONMENT? NO . ENDOCRINOLOGY: ARE YOU DIABETIC? NO . OTHER: DO YOU NEED ANY PRESCRIPTIONS? NO . IF YES, PLEASE LIST: ____ . ANY NEW PROBLEMS WITH YOUR MEDICATIONS? NO . WHEN DID YOU LAST EAT? ____ . WHEN DID YOU LAST DRINK? ____ . WHAT DID YOU LAST DRINK? ____ . NAME OF PERSON DRIVING YOU HOME? ____ . DO YOU HAVE ANY OTHER QUESTIONS OR CONCERNS NO . VITAL SIGNS WT 315.6 LBS, HT 69 IN, BMI 46.60 INDEX, BP 160/83 MM HG, HR 78 /MIN, RR 18 /MIN, TEMP 97.6 F, OXYGEN SAT % 93%, SAFE IN ENV? (Y/N) YES, NA INITIALS SC 11:22, REVIEWED BY: JESSICA. EXAMINATION GENERAL EXAMINATION: PATIENT IS ALERT O X 3 AND COOPERATIVE. PAIN INCREASES OVER THE CERVICAL FACET JOINTS WITH EXTENSION AND LATERAL ROTATION OF THE NECK. MRI OF THE CERVICAL SPINE DONE ON 11/03/2017 SHOWS FACET ARTHROPATHY CHANGES AT MULTIPLE LEVELS. ASSESSMENTS SPONDYLOSIS OF CERVICAL REGION WITHOUT MYELOPATHY OR RADICULOPATHY - M47.812 (PRIMARY) TREATMENT SPONDYLOSIS OF CERVICAL REGION WITHOUT MYELOPATHY OR RADICULOPATHY CLINICAL NOTES: WE DISCUSSED SEVERAL ISSUES WITH MR. DOTSON'S PAIN MANAGEMENT CASE. DUE TO THE CERVICAL SPONDYLOSIS, I WOULD LIKE TO MOVE FORWARD WITH A BILATERAL C2-C3, C3-C4, C6-C7 CERVICAL THERAPEUTIC FACET BLOCK. WE DISCUSSED THE BENEFITS, RISKS, AND ALTERNATIVES OF THE INJECTION AND THE PATIENT WOULD LIKE TO PROCEED. THE PATIENT WILL FOLLOW UP IN 6 WEEKS. INSTRUCTIONS WERE GIVEN, QUESTIONS WERE ANSWERED, PATIENT REPORTS UNDERSTANDING AND AGREES WITH THE PLAN. I, AXEL SEVILLA, DOCUMENTED THE ABOVE INFORMATION ACTING A SCRIBE FOR DR. HART. I HAVE REVIEWED THE ABOVE DOCUMENT, WRITTEN BY AXEL MAZAIBClotilde AND I VERIFY THAT IT IS ACCURATE. . PROCEDURE CODES FA211 ESTABILISHED PATIENT [facility] FACILITY CHARGE G8427 CURRENT MEDS W/DOSAGES DOCUMENTED G8730 PAIN ASSESS POS TOOL F/U PLAN DOC DISPOSITION & COMMUNICATION FOLLOW UP 6 WEEKS ELECTRONICALLY SIGNED BY BARBRA HART MD, MD ON 10/30/2018 AT 12:37 PM EDT DISCLAIMER : THIS IS A VISIT SUMMARY EXTRACTED FROM THE [employer] CHART. IT IS NOT A COPY OF THE [facility] PROGRESS NOTE. MTDD
== END ==
LOC: M PAIN 11:45
PROVIDERS: ATTEND Anesthesiology
DX: M47.812 Spondylosis without myelopathy or radiculopathy, cervical region (principal); E78.5 Hyperlipidemia, unspecified; K21.9 Gastro-esophageal reflux disease without esophagitis; I12.9 Hypertensive chronic kidney disease with stage 1 through stage 4 chronic kidney disease, or unspecified chronic kidney disease; F43.10 Post-traumatic stress disorder, unspecified; K22.70 Barrett's esophagus without dysplasia; N18.9 Chronic kidney disease, unspecified; Z87.442 Personal history of urinary calculi; Z79.891 Long term (current) use of opiate analgesic; Z79.899 Other long term (current) drug therapy; Z88.8 Allergy status to other drugs, medicaments and biological substances

== ENCOUNTER → 2018-11-20 | Outpatient (REF) | payer BC | LOC: M LAB REF 12:31 | PROVIDERS: ATTEND Physician Assistant | DX: L03.114 Cellulitis of left upper limb (principal) ==

== ENCOUNTER → 2018-11-20 | Outpatient (REF) | payer BC ==
[2018-11-20 21:26] LABS: BASO % 0.4 % (0.0-1.0); EOS # 0.2 10^3/uL (0.0-0.50); EOS % 2.7 % (0.0-3.0); HEMATOCRIT 42.9 % (42.0-52.0); HEMOGLOBIN 13.5 g/dl (13.5-17.5); LYMPH # 1.3 10^3/uL (1.5-4.5); LYMPH % 16.8 % (24.0-44.0); MEAN CORPUSCULAR HEMOGLOBIN 29.3 pg (27.0-33.0); MEAN CORPUSCULAR HGB CONC 31.5 g/dl (32.0-36.5); MEAN CORPUSCULAR VOLUME 93.3 fl (80.0-96.0); MONO # 0.4 10^3/uL (0.0-0.8); MONO % 5.2 % (0.0-5.0); NEUTROPHILS # 5.8 10^3/uL (1.8-7.7); NEUTROPHILS % 74.5 % (36.0-66.0); PLATELET COUNT, AUTOMATED 368 10^3/uL (150-450); WHITE BLOOD COUNT 7.7 10^3/uL (4.0-10.0)
[2018-11-20 21:57] LABS: ERYTHROCYTE SEDIMENTATION RATE 7 mm/hr (0-20)
== END ==
LOC: M LABDRWAD 19:52
PROVIDERS: ATTEND Physician Assistant
DX: L03.114 Cellulitis of left upper limb (principal)

== ENCOUNTER → 2018-12-27 | Outpatient (CLI) | payer BC ==
--- NOTE | 2019-01-05 23:21 | ECWPNPC ---
PATIENT NAME: JOE DOTSON : 1960 GENDER: MALE VISIT DATE: 12/27/2018 DISCHARGE DATE: 12/27/18 1032 VISIT LOCKED DATE TIME: PHYSICIAN: BABRRA HART MD RESOURCE: BARBRA HART MD REASON FOR APPOINTMENT 1. POST PROC HISTORY OF PRESENT ILLNESS HISTORY OF PRESENT ILLNESS: PAIN THE PATIENT DESCRIBES THE PAIN... THE PATIENT DESCRIBES THE PAIN... 58 YEAR OLD MALE PATIENT WITH A HISTORY OF CHRONIC NECK AND ARM PAIN. THE PATIENT DESCRIBES THE PAIN ACHING, SORE, TENDER, STABBING, AND CONTINUOUS WITH A PAIN SCORE OF 3-8/10 DEPENDING ON PHYSICAL ACTIVITY. THE PATIENT SAYS THAT THE PAIN STARTS IN HIS NECK AND RADIATES DOWN HIS LEFT ARM WITH NUMBNESS. THE PATIENT RECEIVED A THERAPEUTIC CERVICAL FACET BLOCK ON 11/28/2018 AND REPORTS HAVING SIGNIFICANT PAIN RELIEF FOR SEVERAL WEEKS AND ALMOST NO HEADACHES. THE PATIENT SAYS THE PAIN IN HIS NECK IS STARTING TO COME BACK, BUT HIS PAIN IS MAINLY IN HIS LEFT ARM NOW. PATIENT DENIES UNEXPLAINABLE WEIGHT LOSS, FEVER, CHILLS, NEW CHANGES ON HIS URINARY OR BOWEL CONTROL. FALL RISK SCREENING: SCREENING :NO FALLS REPORTED IN THE LAST YEAR :NO FALLS REPORTED IN THE LAST YEAR SCREENING :NO FALLS REPORTED IN THE LAST YEAR :NO FALLS REPORTED IN THE LAST YEAR CURRENT MEDICATIONS TAKING ALLOPURINOL 300 MG TABLET 1 TABLET ORALLY ONCE A DAY TAKING MAGNESIUM GLUCONATE 500 MG TABLET DIRECTED ORALLY TAKING VERAPAMIL HCL 300 MG CAPSULE EXTENDED RELEASE 24 HOUR 1 CAPSULE AT BEDTIME ORALLY ONCE A DAY TAKING FLEXERIL 10 MG TABLET 1 TABLET ORALLY TWICE DAILY TAKING XYZAL 5 MG TABLET 1 TABLET IN THE EVENING ORALLY ONCE A DAY TAKING EFFEXOR XR 150 MG CAPSULE EXTENDED RELEASE 24 HOUR 2 CAPSULE WITH FOOD ORALLY ONCE A DAY TAKING EFFEXOR XR 75 MG CAPSULE EXTENDED RELEASE 24 HOUR 1 CAPSULE WITH FOOD ORALLY ONCE A DAY TAKING NEXIUM 40 MG CAPSULE DELAYED RELEASE 1 CAPSULE ORALLY TWICE DAILY TAKING CENTRUM ADULTS - TABLET ORALLY DAILY TAKING VITAMIN B12 500 MCG TABLET 1 TABLET ORALLY ONCE A DAY TAKING REMERON 15 MG TABLET 1 TABLET AT BEDTIME ORALLY ONCE A DAY TAKING LISINOPRIL 5 MG TABLET 1 TABLET ORALLY ONCE A DAY TAKING KLONOPIN 0.5 MG TABLET 1 TABLET ORALLY FOUR TIMES PER DAY TAKING NEURONTIN 300 MG CAPSULE 1 CAPSULE ORALLY TWICE DAILY TAKING PRAZOSIN HCL 2 MG CAPSULE 2 CAPSULE AT BEDTIME ORALLY ONCE A DAY TAKING TRAZODONE HCL 50 MG TABLET 2 TABLETS AT BEDTIME ORALLY ONCE A DAY TAKING IRON 325 (65 FE) MG TABLET 1 TABLET ORALLY TWICE DAILY TAKING ABILIFY 1 TABLET ORALLY AT BEDTIME NOT-TAKING TRAMADOL HCL 50 MG TABLET 1 TABLET NEEDED ORALLY 3 TIMES DAILY NEEDED NOT-TAKING ZOCOR 40 MG TABLET 1 TABLET EVERY EVENING ORALLY ONCE A DAY NOT-TAKING MYA 180 MG TABLET 1 TABLET ORALLY ONCE A DAY NOT-TAKING METHOCARBAMOL 750 MG TABLET 1 TABLET ORALLY EVERY 4 HRS NOT-TAKING DARVOCET-N 100 100-650 MG TABLET 1 TABLET NEEDED FOR PAIN ORALLY EVERY 4 HRS NOT-TAKING PAXIL 20 MG TABLET 1 TABLET IN THE MORNING ORALLY ONCE A DAY NOT-TAKING LYRICA 300 MG CAPSULE 1 CAPSULE ORALLY TWICE A DAY NOT-TAKING PRILOSEC 20 MG CAPSULE DELAYED RELEASE 1 CAPSULE ORALLY ONCE A DAY NOT-TAKING LUNESTA 2 MG TABLET 1 TABLET IMMEDIATELY BEFORE BEDTIME ORALLY ONCE A DAY NOT-TAKING ULTRAM ER 200 MG TABLET EXTENDED RELEASE 24 HOUR 1 TABLET ORALLY ONCE A DAY NOT-TAKING TOPAMAX 200 MG TABLET 1 TABLET ORALLY TWICE A DAY NOT-TAKING POTASSIUM CITRATE 1080 MG TABLET EXTENDED RELEASE 1 TABLET WITH MEALS ORALLY THREE TIMES A DAY MEDICATION LIST REVIEWED AND RECONCILED WITH THE PATIENT PAST MEDICAL HISTORY HYPERLIPIDEMIA ESOPHAGEAL REFLUX KIDNEY STONES HYPERTENSION PTSD BARRETTS ESOPHAGUS CHRONIC KIDNEY DISEASE SYNDROME BILATERRAL CARPAL TUNNEL ALLERGIES ZANAFLEX: BRADYCARDIA - SIDE EFFECTS SURGICAL HISTORY HERNIA REPAIR CHOLECYSTECTOMY TUMOR RESECTED LEFT SHOULDER LITHOTRIPSY GASTIC BYPASS 2013 BILATERAL CARPAL TUNNEL LEFT MOST RECENT [id number] FAMILY HISTORY FATHER: ALIVE MOTHER: , DIAGNOSED WITH CANCER SIBLINGS: CANCER MATERNAL GRAND MOTHER: DIABETES 2 SISTER(S) . 1 SON(S) , 1 DAUGHTER(S) - HEALTHY. NO PROSTATE,KIDNEY OR BLADDER CANCER MOTHER WITH BREAST CANCER SISTER WITH UTERINE CANCER GRANDFATHER UNKNOWN CANCER. SOCIAL HISTORY GENERAL: TOBACCO USE ARE YOU A:NONSMOKER IMMUNIZATION PROGRAM DO YOU FEEL SAFE IN YOUR ENVIRONMENT? NODISABLED FROM WORK , REGULAR PORTIION CONTROOLLED, DAILY, WALKS, , SPOUSE, CHILDREN. OTHERS AT HOME: DO YOU FEEL SAFE IN YOUR ENVIRONMENT? NODISABLED FROM WORK , REGULAR PORTIION CONTROOLLED, DAILY, WALKS, . HOUSING: PFS REFERRAL NEEDED? NO, CLERGY REFERRAL NEEDED? NO, PUBLIC HEALTH REFERRAL NEEDED? NO, WAS THE PROVIDER NOTIFIED OF ANY PERTINENT INFO? NO, HAS THE PATIENT BEEN EDUCATED REGARDING HIS/HER PLAN OF CARE? YES, HAS THE PATIENT BEEN EDUCATED REGARDING PAIN, THE RISK FOR PAIN, THE IMPORTANCE OF EFFECTIVE PAIN MANAGEMENT, AND THE PAIN ASSESSMENT PROCESS? YES. EDUCATION LEVEL OF EDUCATION:NOT ANSWERED [employer] DIET: REGULAR. LANGUAGE LANGUAGES SPOKEN:DIVEHI NEW PATIENT PAIN DIARY MONOGAMOUS? YES. RECREATIONAL DRUG USE DRUG USE?NO EXERCISE: NONE. LEARNING BARRIERS / SPECIAL NEEDS SPECIAL DEVICES?YES CPAP PAIN CLINIC PFS, CLERGY, PUBLIC HEALTH REFERRALS PFS REFERRAL NEEDED?NO CLERGY REFERRAL NEEDED?NO PUBLIC HEALTH REFERRAL NEEDED?NO WAS THE PROVIDER NOTIFIED OF ANY PERTINENT INFO?YES HAS THE PATIENT BEEN EDUCATED REGARDING HIS/HER PLAN OF CARE?YES HAS THE PATIENT BEEN EDUCATED REGARDING PAIN, THE RISK FOR PAIN, THE IMPORTANCE OF EFFECTIVE PAIN MANAGEMENT, AND THE PAIN ASSESSMENT PROCESS?YES LATEX QUESTIONNAIRE LATEX ALLERGY : HAVE YOU EVER DEVELOPED ANY TYPE OF REACTION AFTER HANDLING LATEX PRODUCTS SUCH RUBBER GLOVES, CONDOMS, DIAPHRAGMS, BALLOONS, SOCKS, OR UNDERWEAR?NO LATEX ALLERGY : HAVE YOU EVER DEVELOPED ANY TYPE OF REACTION DURING OR AFTER DENTAL APPOINTMENT, VAGINAL/RECTAL EXAMINATION, SURGICAL PROCEDURE, OR ANY OTHER EXPOSURE?NO LATEX RISK : HAVE YOU EVER HAD ANY DIFFICULTY BREATHING OR HIVES AFTER EATING OR HANDLING ANY FRUITS, OR VEGETABLES; SUCH KIWI, BANANAS, STONE FRUITS, OR CHESTNUTSNO LATEX RISK : DO YOU HAVE A PREVIOUS PERSONAL HISTORY OF MORE THAN NINE SURGERIES, SPINA BIFIDA, OR REPEATED CATHERTIZATIONS? NO LATEX RISK : ARE YOU FREQUENTLY EXPOSED TO LATEX PRODUCTS IN YOUR OCCUPATION?NO DATE ASKED : 11/28/2018 CAFFEINE CAFFEINE USE?NO ADVANCE DIRECTIVE ADVANCE DIRECTIVE DISCUSSED WITH PATIENT:YES DECLINED INFORMATION OR ASSISTANCE AT THIS TIME RELIGIOUS RELIGIOUS TAOIST MARITAL STATUS: DO YOU FEEL SAFE IN YOUR ENVIRONMENT? NODISABLED FROM WORK , REGULAR PORTIION CONTROOLLED, DAILY, WALKS. ALCOHOL SCREENING DID YOU HAVE A DRINK CONTAINING ALCOHOL IN THE PAST YEAR?NO POINTS0 INTERPRETATIONNEGATIVE NOT A SMOKER OR ETOH. MODELING MANAGER BY PROFESSIONREVIEWED WITH PT, 10/18/18 1130 LAS. HOSPITALIZATION/MAJOR DIAGNOSTIC PROCEDURE SURGERY RELATED REVIEW OF SYSTEMS REVIEWED BY: PROVIDER: BARBRA HART MD . CONSTITUTIONAL: ANY CHANGE IN YOUR MEDICAL CONDITION? NO, NO . CHILLS NO, NO . FEVER NO, NO . INFECTION: DO YOU HAVE NEW INFECTIONS? NO, NO . DO YOU HAVE HISTORY OF MRSA? NO, NO . MUSCULOSKELETAL: ANY NEW PATTERNS OF PAIN OR NUMBNESS? NO, NO . GASTROENTEROLOGY: ANY NEW CHANGE IN BOWEL CONTROL? NO, NO . GENITOURINARY: ANY NEW CHANGE IN BLADDER CONTROL? NO, NO . IS THERE A CHANCE YOU COULD BE ? NO, NO . HEMATOLOGY/LYMPH: DO YOU TAKE ANY BLOOD THINNERS? (FOR EXAMPLE- COUMADIN, PLAVIX, AGGRENOX, PLATEL, PRADAXA, OR XARELTO) NO, NO . WHEN WAS YOUR LAST DOSE? DATE: TIME: , DATE: TIME: . NEUROLOGY: HAVE YOU FALLEN IN THE PAST 12 MONTHS? A COUPLE DAYS AGO "KNEES GAVE OUT", NO . ANY NEW EXTREMITY NUMBNESS OR WEAKNESS? NO, NO . CARDIOLOGY: DO YOU HAVE A PACEMAKER OR DEFIBRILLATOR? NO, NO . RESPIRATORY: HAVE YOU BEEN SICK IN THE PAST WEEK? NO, NO . FEVER NO, NO . FLU LIKE SYMPTOMS? NO, NO . COUGH NO, NO . INTEGUMENTARY: DO YOU HAVE ANY RASHES OR OPEN SORES? NO, NO . ALLERGIC/IMMUNO: ARE YOU ALLERGIC TO IV DYE? NO, NO . ANY NEW ALLERGIES? NO, NO . PSYCHIATRIC: DO YOU HAVE THOUGHTS OF HURTING YOURSELF OR SOMEONE ELSE? NO, NO . ARE YOU ABUSED, NEGLECTED, OR IN AN UNSAFE ENVIRONMENT? NO, NO . ENDOCRINOLOGY: ARE YOU DIABETIC? NO, NO . OTHER: DO YOU NEED ANY PRESCRIPTIONS? NO, NO . IF YES, PLEASE LIST: ____, ____ . ANY NEW PROBLEMS WITH YOUR MEDICATIONS? NO, NO . WHEN DID YOU LAST EAT? ____, ____ . WHEN DID YOU LAST DRINK? ____, ____ . WHAT DID YOU LAST DRINK? ____, ____ . NAME OF PERSON DRIVING YOU HOME? ____, ____ . DO YOU HAVE ANY OTHER QUESTIONS OR CONCERNS NO, NO . VITAL SIGNS WT 298.4 LBS, HT 69 IN, BMI 44.06 INDEX, BP 120/78 MM HG, HR 69 /MIN, RR 18 /MIN, TEMP 98.6 F, OXYGEN SAT % 95%, SAFE IN ENV? (Y/N) YES, NA INITIALS AW 0941, REVIEWED BY: KG. EXAMINATION GENERAL EXAMINATION: PATIENT IS ALERT O X 3 AND COOPERATIVE. TENDERNESS OVER THE NECK AREA. LEFT ARM IS WEAKER AT EXTENSION AND FLEXION. HAND EXTRUSION MACHINE OPERATOR IS REDUCED OVER THE LEFT SIDE. MRI OF THE CERVICAL SPINE DONE ON 10/24/2017 SHOWS BULGING DISCS AT MULTIPLE LEVELS AND A DISC PROTRUSION AT C5-C6 AND C6-C7. ASSESSMENTS CERVICAL DISC DISORDER WITH RADICULOPATHY OF CERVICAL REGION - M50.10 (PRIMARY) TREATMENT CERVICAL DISC DISORDER WITH RADICULOPATHY OF CERVICAL REGION CLINICAL NOTES: WE DISCUSSED SEVERAL ISSUES WITH MR. DOTSON'S PAIN MANAGEMENT CASE. DUE TO THE CERVICAL RADICULOPATHY, I WOULD LIKE TO MOVE FORWARD WITH A CERVICAL EPIDURAL STEROID INJECTION AT THIS TIME. WE DISCUSSED THE BENEFITS, RISKS, AND ALTERNATIVES OF THE INJECTION AND THE PATIENT WOULD LIKE TO PROCEED. THE PATIENT MAY CONSIDER REPEATING THE THERAPEUTIC CERVICAL FACET BLOCK IN THE FUTURE. THE PATIENT WILL FOLLOW UP A FEW WEEKS AFTER THE INJECTION. INSTRUCTIONS WERE GIVEN, QUESTIONS WERE ANSWERED, PATIENT REPORTS UNDERSTANDING AND AGREES WITH THE PLAN. I, AXEL SEVILLA, DOCUMENTED THE ABOVE INFORMATION ACTING A SCRIBE FOR DR. HART. I HAVE REVIEWED THE ABOVE DOCUMENT, WRITTEN BY AXEL DIAL AND I VERIFY THAT IT IS ACCURATE. . PROCEDURE CODES FA211 ESTABILISHED PATIENT [facility] FACILITY CHARGE G8427 CURRENT MEDS W/DOSAGES DOCUMENTED G8730 PAIN ASSESS POS TOOL F/U PLAN DOC DISPOSITION & COMMUNICATION FOLLOW UP REQUESTING AUTH ELECTRONICALLY SIGNED BY BARBRA HART MD, ON 01/05/2019 AT 08:58 PM EDT DISCLAIMER : THIS IS A VISIT SUMMARY EXTRACTED FROM THE [employer] CHART. IT IS NOT A COPY OF THE [facility] PROGRESS NOTE. PHIL
== END ==
LOC: M PAIN 10:00
PROVIDERS: ATTEND Anesthesiology
DX: M50.10 Cervical disc disorder with radiculopathy, unspecified cervical region (principal); I10 Essential (primary) hypertension; Z79.899 Other long term (current) drug therapy; Z79.891 Long term (current) use of opiate analgesic; Z88.8 Allergy status to other drugs, medicaments and biological substances

== ENCOUNTER → 2019-02-13 | Outpatient (CLI) | payer BC ==
[~2019-02-13] MED LIST changes: +ISOVUE-M 200 41% 20ML VIAL (Q9966) As Ordered ONE; +LIDOCAINE 1% SDV INJ 30 ML VIAL As Ordered ONE; +diazePAM 5 MG TAB As Ordered ONE; +methylPREDNISolone SUSP 40 MG/ML (DEPO-medrol) VIAL (J1030) As Ordered ONE; +oxyCODONE 5MG TAB As Ordered ONE
--- NOTE | 2019-02-13 15:07 | REP ---
C-ARM VIEWS CERVICAL SPINE: Clinical history: Pain. Two C-Arm views of cervical spine region performed during cervical epidural steroid injection by Dr. Lea. Needle was seen at the junction of the cervical and thoracic spine. A small amount of contrast is injected. 15 seconds fluoroscopy time utilized. Electronically Signed by Hernesto Lugo MD 02/13/2019 05:45 P
--- NOTE | 2019-02-22 00:44 | ECWPNPC ---
PATIENT NAME: JOE DOTSON : 1960 GENDER: MALE VISIT DATE: 02/13/2019 DISCHARGE DATE: 02/13/19 1210 VISIT LOCKED DATE TIME: PHYSICIAN: BARBRA AHRT MD RESOURCE: BARBRA HART MD REASON FOR APPOINTMENT 1. CHACHO HISTORY OF PRESENT ILLNESS HISTORY OF PRESENT ILLNESS: PAIN THE PATIENT DESCRIBES THE PAIN... FALL RISK SCREENING: SCREENING :NO FALLS REPORTED IN THE LAST YEAR CURRENT MEDICATIONS TAKING ALLOPURINOL 300 MG TABLET 1 TABLET ORALLY ONCE A DAY, NOTES: 02/13/19544 TAKING VERAPAMIL HCL 300 MG CAPSULE EXTENDED RELEASE 24 HOUR 1 CAPSULE AT BEDTIME ORALLY ONCE A DAY, NOTES: 02/12/19 PM TAKING FLEXERIL 10 MG TABLET 1 TABLET ORALLY TWICE DAILY, NOTES: 02/13/19544 TAKING XYZAL 5 MG TABLET 1 TABLET IN THE EVENING ORALLY ONCE A DAY, NOTES: 02/13/19544 TAKING EFFEXOR XR 150 MG CAPSULE EXTENDED RELEASE 24 HOUR 2 CAPSULE WITH FOOD ORALLY ONCE A DAY, NOTES: 02/13/19544 TAKING EFFEXOR XR 75 MG CAPSULE EXTENDED RELEASE 24 HOUR 1 CAPSULE WITH FOOD ORALLY ONCE A DAY, NOTES: 02/13/19544 TAKING NEXIUM 40 MG CAPSULE DELAYED RELEASE 1 CAPSULE ORALLY TWICE DAILY, NOTES: 02/13/19544 TAKING CENTRUM ADULTS - TABLET ORALLY DAILY, NOTES: 02/13/19544 TAKING VITAMIN B12 500 MCG TABLET 1 TABLET ORALLY ONCE A DAY, NOTES: 02/13/19544 TAKING REMERON 15 MG TABLET 1 TABLET AT BEDTIME ORALLY ONCE A DAY, NOTES: 02/12/19 PM TAKING LISINOPRIL 5 MG TABLET 1 TABLET ORALLY ONCE A DAY, NOTES: 02/12/19 PM TAKING KLONOPIN 0.5 MG TABLET 1 TABLET ORALLY FOUR TIMES PER DAY, NOTES: 02/13/19544 TAKING NEURONTIN 300 MG CAPSULE 1 CAPSULE ORALLY TWICE DAILY, NOTES: 02/13/19544 TAKING PRAZOSIN HCL 2 MG CAPSULE 2 CAPSULE AT BEDTIME ORALLY ONCE A DAY, NOTES: 02/12/19 PM TAKING TRAZODONE HCL 50 MG TABLET 2 TABLETS AT BEDTIME ORALLY ONCE A DAY, NOTES: 02/12/19 PM TAKING IRON 325 (65 FE) MG TABLET 1 TABLET ORALLY TWICE DAILY, NOTES: 02/13/19544 TAKING ABILIFY 1 TABLET ORALLY AT BEDTIME, NOTES: 02/12/19 PM NOT-TAKING MAGNESIUM GLUCONATE 500 MG TABLET DIRECTED ORALLY , NOTES: NOT STARTED YET NOT-TAKING TRAMADOL HCL 50 MG TABLET 1 TABLET NEEDED ORALLY 3 TIMES DAILY NEEDED NOT-TAKING ZOCOR 40 MG TABLET 1 TABLET EVERY EVENING ORALLY ONCE A DAY NOT-TAKING MYA 180 MG TABLET 1 TABLET ORALLY ONCE A DAY NOT-TAKING METHOCARBAMOL 750 MG TABLET 1 TABLET ORALLY EVERY 4 HRS NOT-TAKING DARVOCET-N 100 100-650 MG TABLET 1 TABLET NEEDED FOR PAIN ORALLY EVERY 4 HRS NOT-TAKING PAXIL 20 MG TABLET 1 TABLET IN THE MORNING ORALLY ONCE A DAY NOT-TAKING LYRICA 300 MG CAPSULE 1 CAPSULE ORALLY TWICE A DAY NOT-TAKING PRILOSEC 20 MG CAPSULE DELAYED RELEASE 1 CAPSULE ORALLY ONCE A DAY NOT-TAKING LUNESTA 2 MG TABLET 1 TABLET IMMEDIATELY BEFORE BEDTIME ORALLY ONCE A DAY NOT-TAKING ULTRAM ER 200 MG TABLET EXTENDED RELEASE 24 HOUR 1 TABLET ORALLY ONCE A DAY NOT-TAKING TOPAMAX 200 MG TABLET 1 TABLET ORALLY TWICE A DAY NOT-TAKING POTASSIUM CITRATE 1080 MG TABLET EXTENDED RELEASE 1 TABLET WITH MEALS ORALLY THREE TIMES A DAY MEDICATION LIST REVIEWED AND RECONCILED WITH THE PATIENT PAST MEDICAL HISTORY HYPERLIPIDEMIA ESOPHAGEAL REFLUX KIDNEY STONES HYPERTENSION PTSD BARRETTS ESOPHAGUS CHRONIC KIDNEY DISEASE SYNDROME BILATERRAL CARPAL TUNNEL ALLERGIES ZANAFLEX: BRADYCARDIA - SIDE EFFECTS SURGICAL HISTORY HERNIA REPAIR CHOLECYSTECTOMY TUMOR RESECTED LEFT SHOULDER LITHOTRIPSY GASTIC BYPASS 2013 BILATERAL CARPAL TUNNEL LEFT MOST RECENT [id number] FAMILY HISTORY FATHER: ALIVE MOTHER: , DIAGNOSED WITH CANCER SIBLINGS: CANCER MATERNAL GRAND MOTHER: DIABETES 2 SISTER(S) . 1 SON(S) , 1 DAUGHTER(S) - HEALTHY. NO PROSTATE,KIDNEY OR BLADDER CANCER MOTHER WITH BREAST CANCER SISTER WITH UTERINE CANCER GRANDFATHER UNKNOWN CANCER. SOCIAL HISTORY GENERAL: TOBACCO USE ARE YOU A:NONSMOKER IMMUNIZATION PROGRAM DO YOU FEEL SAFE IN YOUR ENVIRONMENT? NODISABLED FROM WORK , REGULAR PORTIION CONTROOLLED, DAILY, WALKS, , SPOUSE, CHILDREN. OTHERS AT HOME: DO YOU FEEL SAFE IN YOUR ENVIRONMENT? NODISABLED FROM WORK , REGULAR PORTIION CONTROOLLED, DAILY, WALKS, . HOUSING: PFS REFERRAL NEEDED? NO, CLERGY REFERRAL NEEDED? NO, PUBLIC HEALTH REFERRAL NEEDED? NO, WAS THE PROVIDER NOTIFIED OF ANY PERTINENT INFO? NO, HAS THE PATIENT BEEN EDUCATED REGARDING HIS/HER PLAN OF CARE? YES, HAS THE PATIENT BEEN EDUCATED REGARDING PAIN, THE RISK FOR PAIN, THE IMPORTANCE OF EFFECTIVE PAIN MANAGEMENT, AND THE PAIN ASSESSMENT PROCESS? YES. EDUCATION LEVEL OF EDUCATION:NOT ANSWERED [employer]OL DIET: REGULAR. LANGUAGE LANGUAGES SPOKEN:SUDANESE NEW PATIENT PAIN DIARY MONOGAMOUS? YES. RECREATIONAL DRUG USE DRUG USE?NO EXERCISE: NONE. LEARNING BARRIERS / SPECIAL NEEDS SPECIAL DEVICES?YES CPAP PAIN CLINIC PFS, CLERGY, PUBLIC HEALTH REFERRALS PFS REFERRAL NEEDED?NO CLERGY REFERRAL NEEDED?NO PUBLIC HEALTH REFERRAL NEEDED?NO WAS THE PROVIDER NOTIFIED OF ANY PERTINENT INFO?YES HAS THE PATIENT BEEN EDUCATED REGARDING HIS/HER PLAN OF CARE?YES HAS THE PATIENT BEEN EDUCATED REGARDING PAIN, THE RISK FOR PAIN, THE IMPORTANCE OF EFFECTIVE PAIN MANAGEMENT, AND THE PAIN ASSESSMENT PROCESS?YES LATEX QUESTIONNAIRE LATEX ALLERGY : HAVE YOU EVER DEVELOPED ANY TYPE OF REACTION AFTER HANDLING LATEX PRODUCTS SUCH RUBBER GLOVES, CONDOMS, DIAPHRAGMS, BALLOONS, SOCKS, OR UNDERWEAR?NO LATEX ALLERGY : HAVE YOU EVER DEVELOPED ANY TYPE OF REACTION DURING OR AFTER DENTAL APPOINTMENT, VAGINAL/RECTAL EXAMINATION, SURGICAL PROCEDURE, OR ANY OTHER EXPOSURE?NO LATEX RISK : HAVE YOU EVER HAD ANY DIFFICULTY BREATHING OR HIVES AFTER EATING OR HANDLING ANY FRUITS, OR VEGETABLES; SUCH KIWI, BANANAS, STONE FRUITS, OR CHESTNUTSNO LATEX RISK : DO YOU HAVE A PREVIOUS PERSONAL HISTORY OF MORE THAN NINE SURGERIES, SPINA BIFIDA, OR REPEATED CATHERIZATIONS? NO LATEX RISK : ARE YOU FREQUENTLY EXPOSED TO LATEX PRODUCTS IN YOUR OCCUPATION?NO DATE ASKED : 11/28/2018 CAFFEINE CAFFEINE USE?NO ADVANCE DIRECTIVE ADVANCE DIRECTIVE DISCUSSED WITH PATIENT:YES HCP IS JULIET DOTSON [phone] LATTER DAY LATTER DAY YARSANI MARITAL STATUS: DO YOU FEEL SAFE IN YOUR ENVIRONMENT? NODISABLED FROM WORK , REGULAR PORTIION CONTROOLLED, DAILY, WALKS. ALCOHOL SCREENING DID YOU HAVE A DRINK CONTAINING ALCOHOL IN THE PAST YEAR?NO POINTS0 INTERPRETATIONNEGATIVE NOT A SMOKER OR ETOH. TENT FINISHER BY PROFESSIONREVIEWED WITH PT, 10/18/18 1130 LASREVIEWED WITH PT 02/13/19 1039 BV. HOSPITALIZATION/MAJOR DIAGNOSTIC PROCEDURE SURGERY RELATED REVIEW OF SYSTEMS REVIEWED BY: PROVIDER: . CONSTITUTIONAL: ANY CHANGE IN YOUR MEDICAL CONDITION? NO . CHILLS NO . FEVER NO . INFECTION: DO YOU HAVE NEW INFECTIONS? NO . DO YOU HAVE HISTORY OF MRSA? NO . MUSCULOSKELETAL: ANY NEW PATTERNS OF PAIN OR NUMBNESS? YES, PT STATES PAIN IN NECK HAS BEEN SIGNIFICANTLY INCREASED IN INTENSITY FOR THE PAST COUPLE MONTHS . GASTROENTEROLOGY: ANY NEW CHANGE IN BOWEL CONTROL? NO . GENITOURINARY: ANY NEW CHANGE IN BLADDER CONTROL? NO . IS THERE A CHANCE YOU COULD BE ? NO . HEMATOLOGY/LYMPH: DO YOU TAKE ANY BLOOD THINNERS? (FOR EXAMPLE- COUMADIN, PLAVIX, AGGRENOX, PLATEL, PRADAXA, OR XARELTO) NO . WHEN WAS YOUR LAST DOSE? DATE: TIME: . NEUROLOGY: HAVE YOU FALLEN IN THE PAST 12 MONTHS? NO . ANY NEW EXTREMITY NUMBNESS OR WEAKNESS? YES, PT REPORTS INCREASING NUMBNESS IN BILATERAL HANDS . CARDIOLOGY: DO YOU HAVE A PACEMAKER OR DEFIBRILLATOR? NO . RESPIRATORY: HAVE YOU BEEN SICK IN THE PAST WEEK? NO . FEVER NO . FLU LIKE SYMPTOMS? NO . COUGH NO . INTEGUMENTARY: DO YOU HAVE ANY RASHES OR OPEN SORES? NO . ALLERGIC/IMMUNO: ARE YOU ALLERGIC TO IV DYE? NO . ANY NEW ALLERGIES? NO . PSYCHIATRIC: DO YOU HAVE THOUGHTS OF HURTING YOURSELF OR SOMEONE ELSE? NO . ARE YOU ABUSED, NEGLECTED, OR IN AN UNSAFE ENVIRONMENT? NO . ENDOCRINOLOGY: ARE YOU DIABETIC? NO . OTHER: DO YOU NEED ANY PRESCRIPTIONS? NO . IF YES, PLEASE LIST: ____ . ANY NEW PROBLEMS WITH YOUR MEDICATIONS? NO . WHEN DID YOU LAST EAT? 01/13/19 PM . WHEN DID YOU LAST DRINK? 01/14/19 0600 . WHAT DID YOU LAST DRINK? GATORADE . NAME OF PERSON DRIVING YOU HOME? JULIET- . DO YOU HAVE ANY OTHER QUESTIONS OR CONCERNS NO . VITAL SIGNS WT 307.4 LBS, HT 69 IN, BMI 45.39 INDEX, BP 143/87 MM HG, HR 66 /MIN, RR 18 /MIN, TEMP 98.2 F, OXYGEN SAT % 97%, NA INITIALS AW 0947, REVIEWED BY: BV. ASSESSMENTS CERVICAL DISC DISORDER WITH RADICULOPATHY OF CERVICAL REGION - M50.10 (PRIMARY) CERVICAL SPINAL STENOSIS - M48.02 TREATMENT CERVICAL DISC DISORDER WITH RADICULOPATHY OF CERVICAL REGION [facility] FLUORO GUIDE SPINE INJECTION (PAIN)[id number] PROCEDURES PN CERVICAL EPIDURAL PRE PROCEDURE DIAGNOSIS CERVICAL DISC DISORDER WITH RADICULOPATHY , CERVICAL SPINAL STENOSIS POST PROCEDURE DIAGNOSIS CERVICAL DISC DISORDER WITH RADICULOPATHY , CERVICAL SPINAL STENOSIS PROCEDURE CERVICAL EPIDURAL STEROID INJECTION UNDER FLUOROSCOPIC GUIDANCE SURGEON DR. BARBRA HART CELLAR PUMPER NONE ANESTHESIA LOCAL PRE PROCEDURE NOTE THE PATIENT HAS A HISTORY OF CHRONIC CERVICAL PAIN. I EVALUATE THE PATIENT AND REVIEWED THE CHART. I WENT OVER THE RISKS, ALTERNATIVES, AND BENEFITS ASSOCIATED WITH THIS PROCEDURE. THE PATIENT WOULD LIKE TO PROCEED AND GIVE CONSENT TO PERFORMED THE PROCEDURE. THE PATIENT DENIES UNEXPLAINABLE WEIGHT LOSS, FEVER, CHILLS, OR NEW CHANGES IN URINARY OR BOWEL CONTROL DESCRIPTION OF PROCEDURE THE PATIENT WAS BROUGHT TO THE PROCEDURE ROOM AND PLACED IN THE PRONE POSITION. THE CERVICOTHORACIC AREA WAS CLEANED WITH BETADINE SOLUTION AND DRAPED ASEPTICALLY. THE PROCEDURE WAS DONE UNDER STERILE CONDITIONS. I CHECKED LATERALITY AND THE LEVEL WHERE THE PROCEDURE WAS GOING TO BE PERFORMED WITH THE PATIENT AND THE SUPPORTING STAFF AT THE MOMENT OF THE TIME OUT IN THE PROCEDURE ROOM. UNDER FLUOROSCOPIC GUIDANCE, THE TARGET WAS SELECTED AT THE INTERLAMINAR LEVEL OF C7-T1. LIDOCAINE WAS USED TO NUMB THE SKIN AND THE SUBCUTANEOUS TISSUE BELOW IT. EPIDURAL TUOHY NEEDLE 17-GAUGE WAS ADVANCED UNDER FLUOROSCOPIC GUIDANCE AND FOLLOWING PATIENT FEEDBACK UNTIL THE EPIDURAL SPACE WAS REACHED 6 CM DEEP INTO THE SKIN BY THE LOSS OF RESISTANCE TECHNIQUE. ISOVUE M-200 DYE, WAS INJECTED SHOWING ADEQUATE SPREAD OF THE DYE. THEN, A SOLUTION OF 3 ML OF NORMAL SALINE WITH DEPO-MEDROL 60 MG WAS INJECTED SLOWLY FOLLOWING PATIENT FEEDBACK. THERE WAS NO EVIDENCE OF BLOOD, PARESTHESIA OR CEREBROSPINAL FLUID DURING THE PROCEDURE. THE PATIENT WAS SENT TO THE RECOVERY ROOM. THE PATIENT WAS MOVING THE EXTREMITIES AND DOING WELL. THERE WAS NO COMPLICATION DURING THE PROCEDURE. FLUOROSCOPY TIME WAS 15 SECONDS POST PROCEDURE NOTE THE PATIENT WILL BE SEEN IN A FOLLOW UP IN THE NEXT FEW WEEKS. INSTRUCTIONS WERE GIVEN, QUESTIONS WERE ANSWERED, AND THE PATIENT EXPRESSED UNDERSTANDING AND AGREES WITH THE PLAN. I, AXEL SEVILLA, DOCUMENTED THE ABOVE INFORMATION ACTING A SCRIBE FOR DR. HART. I HAVE REVIEWED THE ABOVE DOCUMENT, WRITTEN BY AXEL MAZAIBClotilde AND I VERIFY THAT IT IS ACCURATE. PROCEDURE CODES 6045F RADXPS IN END [id number] PXD [id number] CERVICAL/THORACIC W/ IMAGING DISPOSITION & COMMUNICATION FOLLOW UP 3 WEEKS ELECTRONICALLY SIGNED BY BARBRA HART MD, MD ON 02/21/2019 AT 02:11 PM EDT DISCLAIMER : THIS IS A VISIT SUMMARY EXTRACTED FROM THE [employer] CHART. IT IS NOT A COPY OF THE [employer] PROGRESS NOTE. PHIL
== END ==
LOC: M PAIN 10:00
PROVIDERS: ATTEND Anesthesiology
DX: M50.10 Cervical disc disorder with radiculopathy, unspecified cervical region (principal); M48.02 Spinal stenosis, cervical region; E78.5 Hyperlipidemia, unspecified; K21.9 Gastro-esophageal reflux disease without esophagitis; I12.9 Hypertensive chronic kidney disease with stage 1 through stage 4 chronic kidney disease, or unspecified chronic kidney disease; F43.10 Post-traumatic stress disorder, unspecified; K22.70 Barrett's esophagus without dysplasia; N18.9 Chronic kidney disease, unspecified; Z90.49 Acquired absence of other specified parts of digestive tract; Z98.84 Bariatric surgery status; Z79.899 Other long term (current) drug therapy; Z87.442 Personal history of urinary calculi; Z88.8 Allergy status to other drugs, medicaments and biological substances
CPT/HCPCS: 62321; J1030; Q9966

== ENCOUNTER → 2019-03-17 | Outpatient (CLI) | payer BC ==
[~2019-03-17] MED LIST changes: +ABIL1TAB13 PO; +AZIT500T5 PO; +CALC600T60 PO; +CENT1TAB2 PO; +CYCL10TA PO; +EFFE75CA2 PO; +FLOM0.4C39 PO; +IRON65TA2 PO; -ISOVUE-M 200 41% 20ML VIAL (Q9966) As Ordered ONE; +KETO10TAB PO; +KLON0.5T PO; +LEVOTAB10 PO; -LIDOCAINE 1% SDV INJ 30 ML VIAL As Ordered ONE; +LISI-542 PO; -MINI1CAP; +MINI1CAP PO; +NEXI40CA PO; +PERC5TAB12 PO; +TRAZ-252 PO; +VERA300C6 PO; +VITA500T40 PO; -diazePAM 5 MG TAB As Ordered ONE; -methylPREDNISolone SUSP 40 MG/ML (DEPO-medrol) VIAL (J1030) As Ordered ONE; -oxyCODONE 5MG TAB As Ordered ONE
--- NOTE | 2019-03-18 23:29 | ECWPNPC ---
PATIENT NAME: JOE DOTSON : 1960 GENDER: MALE VISIT DATE: 03/17/2019 DISCHARGE DATE: 03/17/19 0957 VISIT LOCKED DATE TIME: PHYSICIAN: KENNEDY MILES RESOURCE: KENNEDY MILES REASON FOR APPOINTMENT 1. POST LESI HISTORY OF PRESENT ILLNESS HISTORY OF PRESENT ILLNESS: PAIN THE PATIENT DESCRIBES THE PAIN... 64 YEAR OLD MALE IN FOR POST CHACHO FOLLOW UP. HE FEELS THE PROCEDURE WAS INEFFECTIVE ON THE RIGHT BUT HELPED A LITTLE ON THE LEFT. PAIN PRE PROCEDURE WAS 7/10 AND IT WENT DOWN TO A 4/10 AND THEN BACK UP TO AN 8/10 CURRENTLY. HE DESCRIBES THE PAIN ACHING, BURNING, SORE, AND TENDER. HE WOULD LIKE TO DISCUSS MEDICATION MANAGEMENT. FALL RISK SCREENING: SCREENING :NO FALLS REPORTED IN THE LAST YEAR CURRENT MEDICATIONS TAKING ALLOPURINOL 300 MG TABLET 1 TABLET ORALLY ONCE A DAY TAKING VERAPAMIL HCL 300 MG CAPSULE EXTENDED RELEASE 24 HOUR 1 CAPSULE AT BEDTIME ORALLY ONCE A DAY TAKING FLEXERIL 10 MG TABLET 1 TABLET ORALLY TID TAKING XYZAL 5 MG TABLET 1 TABLET IN THE EVENING ORALLY ONCE A DAY TAKING EFFEXOR XR 150 MG CAPSULE EXTENDED RELEASE 24 HOUR 2 CAPSULE WITH FOOD ORALLY ONCE A DAY TAKING EFFEXOR XR 75 MG CAPSULE EXTENDED RELEASE 24 HOUR 1 CAPSULE WITH FOOD ORALLY ONCE A DAY TAKING NEXIUM 40 MG CAPSULE DELAYED RELEASE 1 CAPSULE ORALLY TWICE DAILY TAKING CENTRUM ADULTS - TABLET ORALLY DAILY TAKING VITAMIN B12 500 MCG TABLET 1 TABLET ORALLY ONCE A DAY TAKING REMERON 15 MG TABLET 1 TABLET AT BEDTIME ORALLY ONCE A DAY TAKING LISINOPRIL 5 MG TABLET 1 TABLET ORALLY ONCE A DAY TAKING KLONOPIN 0.5 MG TABLET 1 TABLET ORALLY FOUR TIMES PER DAY TAKING NEURONTIN 300 MG CAPSULE 1 CAPSULE ORALLY TWICE DAILY TAKING PRAZOSIN HCL 2 MG CAPSULE 2 CAPSULE AT BEDTIME ORALLY ONCE A DAY TAKING TRAZODONE HCL 50 MG TABLET 2 TABLETS AT BEDTIME ORALLY ONCE A DAY TAKING IRON 325 (65 FE) MG TABLET 1 TABLET ORALLY TWICE DAILY TAKING ABILIFY 1 TABLET ORALLY AT BEDTIME TAKING CALCIUM 500 500-250-200 MG-MG-UNIT TABLET 1 TABLET AFTER A MEAL ORALLY BID NOT-TAKING MAGNESIUM GLUCONATE 500 MG TABLET DIRECTED ORALLY , NOTES: NOT STARTED YET NOT-TAKING TRAMADOL HCL 50 MG TABLET 1 TABLET NEEDED ORALLY 3 TIMES DAILY NEEDED NOT-TAKING ZOCOR 40 MG TABLET 1 TABLET EVERY EVENING ORALLY ONCE A DAY NOT-TAKING MYA 180 MG TABLET 1 TABLET ORALLY ONCE A DAY NOT-TAKING METHOCARBAMOL 750 MG TABLET 1 TABLET ORALLY EVERY 4 HRS NOT-TAKING DARVOCET-N 100 100-650 MG TABLET 1 TABLET NEEDED FOR PAIN ORALLY EVERY 4 HRS NOT-TAKING PAXIL 20 MG TABLET 1 TABLET IN THE MORNING ORALLY ONCE A DAY NOT-TAKING LYRICA 300 MG CAPSULE 1 CAPSULE ORALLY TWICE A DAY NOT-TAKING PRILOSEC 20 MG CAPSULE DELAYED RELEASE 1 CAPSULE ORALLY ONCE A DAY NOT-TAKING LUNESTA 2 MG TABLET 1 TABLET IMMEDIATELY BEFORE BEDTIME ORALLY ONCE A DAY NOT-TAKING ULTRAM ER 200 MG TABLET EXTENDED RELEASE 24 HOUR 1 TABLET ORALLY ONCE A DAY NOT-TAKING TOPAMAX 200 MG TABLET 1 TABLET ORALLY TWICE A DAY NOT-TAKING POTASSIUM CITRATE 1080 MG TABLET EXTENDED RELEASE 1 TABLET WITH MEALS ORALLY THREE TIMES A DAY MEDICATION LIST REVIEWED AND RECONCILED WITH THE PATIENT PAST MEDICAL HISTORY HYPERLIPIDEMIA ESOPHAGEAL REFLUX KIDNEY STONES HYPERTENSION PTSD BARRETTS ESOPHAGUS CHRONIC KIDNEY DISEASE SYNDROME BILATERRAL CARPAL TUNNEL ALLERGIES ZANAFLEX: BRADYCARDIA - SIDE EFFECTS SURGICAL HISTORY HERNIA REPAIR CHOLECYSTECTOMY TUMOR RESECTED LEFT SHOULDER LITHOTRIPSY GASTIC BYPASS 2013 BILATERAL CARPAL TUNNEL LEFT MOST RECENT [id number] FAMILY HISTORY FATHER: ALIVE MOTHER: , DIAGNOSED WITH CANCER SIBLINGS: CANCER MATERNAL GRAND MOTHER: DIABETES 2 SISTER(S) . 1 SON(S) , 1 DAUGHTER(S) - HEALTHY. NO PROSTATE,KIDNEY OR BLADDER CANCER MOTHER WITH BREAST CANCER SISTER WITH UTERINE CANCER GRANDFATHER UNKNOWN CANCER. SOCIAL HISTORY GENERAL: TOBACCO USE ARE YOU A:NONSMOKER IMMUNIZATION PROGRAM DO YOU FEEL SAFE IN YOUR ENVIRONMENT? NODISABLED FROM WORK , REGULAR PORTIION CONTROOLLED, DAILY, WALKS, , SPOUSE, CHILDREN. OTHERS AT HOME: DO YOU FEEL SAFE IN YOUR ENVIRONMENT? NODISABLED FROM WORK , REGULAR PORTIION CONTROOLLED, DAILY, WALKS, . HOUSING: PFS REFERRAL NEEDED? NO, CLERGY REFERRAL NEEDED? NO, PUBLIC HEALTH REFERRAL NEEDED? NO, WAS THE PROVIDER NOTIFIED OF ANY PERTINENT INFO? NO, HAS THE PATIENT BEEN EDUCATED REGARDING HIS/HER PLAN OF CARE? YES, HAS THE PATIENT BEEN EDUCATED REGARDING PAIN, THE RISK FOR PAIN, THE IMPORTANCE OF EFFECTIVE PAIN MANAGEMENT, AND THE PAIN ASSESSMENT PROCESS? YES. EDUCATION LEVEL OF EDUCATION:NOT ANSWERED [employer] DIET: REGULAR. LANGUAGE LANGUAGES SPOKEN:GERMAN NEW PATIENT PAIN DIARY MONOGAMOUS? YES. RECREATIONAL DRUG USE DRUG USE?NO EXERCISE: NONE. LEARNING BARRIERS / SPECIAL NEEDS SPECIAL DEVICES?YES CPAP PAIN CLINIC PFS, CLERGY, PUBLIC HEALTH REFERRALS PFS REFERRAL NEEDED?NO CLERGY REFERRAL NEEDED?NO PUBLIC HEALTH REFERRAL NEEDED?NO WAS THE PROVIDER NOTIFIED OF ANY PERTINENT INFO?YES HAS THE PATIENT BEEN EDUCATED REGARDING HIS/HER PLAN OF CARE?YES HAS THE PATIENT BEEN EDUCATED REGARDING PAIN, THE RISK FOR PAIN, THE IMPORTANCE OF EFFECTIVE PAIN MANAGEMENT, AND THE PAIN ASSESSMENT PROCESS?YES LATEX QUESTIONNAIRE LATEX ALLERGY : HAVE YOU EVER DEVELOPED ANY TYPE OF REACTION AFTER HANDLING LATEX PRODUCTS SUCH RUBBER GLOVES, CONDOMS, DIAPHRAGMS, BALLOONS, SOCKS, OR UNDERWEAR?NO LATEX ALLERGY : HAVE YOU EVER DEVELOPED ANY TYPE OF REACTION DURING OR AFTER DENTAL APPOINTMENT, VAGINAL/RECTAL EXAMINATION, SURGICAL PROCEDURE, OR ANY OTHER EXPOSURE?NO LATEX RISK : HAVE YOU EVER HAD ANY DIFFICULTY BREATHING OR HIVES AFTER EATING OR HANDLING ANY FRUITS, OR VEGETABLES; SUCH KIWI, BANANAS, STONE FRUITS, OR CHESTNUTSNO LATEX RISK : DO YOU HAVE A PREVIOUS PERSONAL HISTORY OF MORE THAN NINE SURGERIES, SPINA BIFIDA, OR REPEATED CATHERIZATIONS? NO LATEX RISK : ARE YOU FREQUENTLY EXPOSED TO LATEX PRODUCTS IN YOUR OCCUPATION?NO DATE ASKED : 11/28/2018 CAFFEINE CAFFEINE USE?NO ADVANCE DIRECTIVE ADVANCE DIRECTIVE DISCUSSED WITH PATIENT:YES HCP IS JULIET DOTSON [phone] GNOSTICIST GNOSTICIST ORTHODOX MARITAL STATUS: DO YOU FEEL SAFE IN YOUR ENVIRONMENT? NODISABLED FROM WORK , REGULAR PORTIION CONTROOLLED, DAILY, WALKS. ALCOHOL SCREENING DID YOU HAVE A DRINK CONTAINING ALCOHOL IN THE PAST YEAR?NO POINTS0 INTERPRETATIONNEGATIVE NOT A SMOKER OR ETOH. TRAFFIC INVESTIGATOR BY PROFESSIONREVIEWED WITH PT, 10/18/18 1130 LASREVIEWED WITH PT 02/13/19 1039 BVREVIEWED WITH PATIENT 03/17/19 0911 NLJ. HOSPITALIZATION/MAJOR DIAGNOSTIC PROCEDURE SURGERY RELATED REVIEW OF SYSTEMS REVIEWED BY: PROVIDER: SHARLENE GARCIA . CONSTITUTIONAL: ANY CHANGE IN YOUR MEDICAL CONDITION? NO . CHILLS NO . FEVER NO . INFECTION: DO YOU HAVE NEW INFECTIONS? NO . DO YOU HAVE HISTORY OF MRSA? NO . MUSCULOSKELETAL: ANY NEW PATTERNS OF PAIN OR NUMBNESS? YES- INCREASE PAIN IN NECK, AND STATES HE HAS HAD A MIGRAINE FOR 6 DAYS, STATES IT IS DUE TO THE PAIN IN HIS NECK, STATES HE HAS PAIN AND NUMBNESS/TINGLING IN RIGHT SHOULDER AND ARM . GASTROENTEROLOGY: ANY NEW CHANGE IN BOWEL CONTROL? NO . GENITOURINARY: ANY NEW CHANGE IN BLADDER CONTROL? NO . IS THERE A CHANCE YOU COULD BE ? NO . HEMATOLOGY/LYMPH: DO YOU TAKE ANY BLOOD THINNERS? (FOR EXAMPLE- COUMADIN, PLAVIX, AGGRENOX, PLATEL, PRADAXA, OR XARELTO) NO . WHEN WAS YOUR LAST DOSE? DATE: TIME: . NEUROLOGY: HAVE YOU FALLEN IN THE PAST 12 MONTHS? YES- TRIPPED OVER CHICKENS AND FELL AGAINST, STATES NO INJURIES OR MEDICAL CARE RECEIVED . ANY NEW EXTREMITY NUMBNESS OR WEAKNESS? YES- STATES INCRESED PAIN IN NECK AND RIGHT SHOULDER AND ARM . CARDIOLOGY: DO YOU HAVE A PACEMAKER OR DEFIBRILLATOR? NO . RESPIRATORY: HAVE YOU BEEN SICK IN THE PAST WEEK? NO . FEVER NO . FLU LIKE SYMPTOMS? NO . COUGH NO . INTEGUMENTARY: DO YOU HAVE ANY RASHES OR OPEN SORES? NO . ALLERGIC/IMMUNO: ARE YOU ALLERGIC TO IV DYE? NO . ANY NEW ALLERGIES? NO . PSYCHIATRIC: DO YOU HAVE THOUGHTS OF HURTING YOURSELF OR SOMEONE ELSE? NO . ARE YOU ABUSED, NEGLECTED, OR IN AN UNSAFE ENVIRONMENT? NO . ENDOCRINOLOGY: ARE YOU DIABETIC? NO . OTHER: DO YOU NEED ANY PRESCRIPTIONS? NO . IF YES, PLEASE LIST: ____ . ANY NEW PROBLEMS WITH YOUR MEDICATIONS? NO . WHEN DID YOU LAST EAT? ____ . WHEN DID YOU LAST DRINK? ____ . WHAT DID YOU LAST DRINK? ____ . NAME OF PERSON DRIVING YOU HOME? ____ . DO YOU HAVE ANY OTHER QUESTIONS OR CONCERNS YES- STATES HE DOES NOT THINK CHACHO WORKED WELL, STATES HE HAS HAD A MIGRAINE DUE TO THE PAIN FOR ANOUT 6 DAYS AND STATES THE PAIN IN HIS RIGHT SHOULDER AND DOWN ARM HAS NEVER WENT AWAY, STATES FACET BLOCKS WORKED MUCH BETTER . VITAL SIGNS WT 310.6 LBS, HT 69 IN, BMI 45.86 INDEX, BP 145/73 MM HG, HR 85 /MIN, RR 18 /MIN, TEMP 97.4 F, OXYGEN SAT % 95%, NA INITIALS SC 08:57, REVIEWED BY: ZHAO. EXAMINATION GENERAL EXAMINATION: GENERALNO ACUTE DISTRESS, WELL NOURISHED AND HYDRATED. PSYCHAPPROPRIATE MOOD AND AFFECT . NECK:POINT TENDER ALONG THE CERVICAL SPINE BILATERALLY, SURROUNDING SKIN SHOWS NO ERYTHEMA, ECCHYMOSIS, INCREASED WARMTH, AND/OR SKIN ERUPTIONS. HE DOES ENDORSE INCREASED PAIN WITH FACET LOADING. . LUNGS:CLEAR TO AUSCULTATION BILATERALLY, NO WHEEZES, RHONCHI, RALES. HEART:NO MURMURS, REGULAR RATE AND RHYTHM. MUSCULOSKELETAL:EQUAL STRENGTH IN THE UPPER EXTREMITIES. ASSESSMENTS CERVICAL DISC DISORDER WITH RADICULOPATHY OF CERVICAL REGION - M50.10 (PRIMARY) TREATMENT CERVICAL DISC DISORDER WITH RADICULOPATHY OF CERVICAL REGION START TYLENOL WITH CODEINE #3 TABLET, 300-30 MG, 1 TABLET NEEDED, ORALLY, TID NEEDED FOR PAIN MDD 3, 30 DAYS, 50 NOTES: BILATERAL THERAPEUTIC FACET BLOCK C3-C4, C4-C5, C5-C6. CLINICAL NOTES: 58 YEAR OLD MALE IN FOR POST CHACHO FOLLOW UP. GIVEN PRESENTING SYMPTOMS AND RESULTS OF PHYSICAL EXAMINATIONS RECOMMENDED THERAPEUTIC FACET BLOCK WITH POST PROCEDURAL FOLLOW UP AND STARTING TYLENOL 3. PATIENT HAS EXPRESSED UNDERSTANDING OF AND WAS IN AGREEMENT WITH TREATMENT PLAN. GIVEN TIME TO ASK QUESTIONS AND EXPRESS CONCERNS. , ISTOP REGISTRY REVIEWED AND DEMONSTRATES COMPLLIANCE. (REF #[id number] ) BRINGS IN MEDICATIONS WHICH IS APPROPRIATE FOR WHAT WAS DISPENSED. RECENT URINE TOXICOLOGY REVIEWED. NO UNAUTHORIZED MEDICATIONS. NO ILLICIT SUBSTANCES AND PRESCRIBED MEDICATIONS WERE PRESENT. , RISKS AND BENEFITS OF NARCOTIC/OPIOD MEDICATIONS WERE REVIEWED WITH PATIENT - THIS INCLUDES BUT IS NOT LIMITED TO RISK OF DEPENDANCE/DEVELOPMENT OF ADDICTION, MOOD DISTURBANCE AND DEPRESSION, OSTEOPOROSIS, HORMONAL AND LABIDAL CHANGES, RESPIRATORY DEPRESSION AND . PATIENT IS ADVISED NOT TO DRIVE OR DRINK ALCOHOL WHILE ON THESE MEDICATIONS. PREVENTIVE MEDICINE PAIN CLINIC TEACHING: MEDICATIONS TYLENOL #3 DRUG INFORMATION PRINTED AND REVIEWED WITH PATEINT 03/17/19 Lewis. PROCEDURE TEACHING CERVICAL FACET BLOCK PROCEDURE REVIEWED WITH PATIENT, PATIENT DECLINED PRINTED INFORMATION 03/17/19 J. PROCEDURE CODES FA211 ESTABILISHED PATIENT [facility] CHARGE DISPOSITION & COMMUNICATION FOLLOW UP POST PROCEDURE (REASON: BILATERAL THERAPEUTIC FACET BLOCK C3-C4, C4-C5, C5-C6) ELECTRONICALLY SIGNED BY CINDY GAMEZ ON 03/18/2019 AT 08:37 AM EDT DISCLAIMER : THIS IS A VISIT SUMMARY EXTRACTED FROM THE [employer] CHART. IT IS NOT A COPY OF THE [employer] PROGRESS NOTE. [facility]
== END ==
LOC: M PAIN 09:15
PROVIDERS: ATTEND Family Medicine
DX: M50.10 Cervical disc disorder with radiculopathy, unspecified cervical region (principal); E78.5 Hyperlipidemia, unspecified; K21.9 Gastro-esophageal reflux disease without esophagitis; I10 Essential (primary) hypertension; Z86.59 Personal history of other mental and behavioral disorders; Z98.84 Bariatric surgery status; Z88.8 Allergy status to other drugs, medicaments and biological substances; E66.01 Morbid (severe) obesity due to excess calories; Z68.42 Body mass index [BMI] 45.0-49.9, adult; Z79.899 Other long term (current) drug therapy

== ENCOUNTER → 2019-04-10 | Outpatient (CLI) | payer BC ==
[~2019-04-10] MED LIST changes: -ABIL1TAB13 PO; -AZIT500T5 PO; +BUPIVACAINE HCL 0.25% 10 ML VIAL As Ordered ONE; +BUPIVACAINE HCL 0.25% 30 ML VIAL As Ordered ONE; -CALC600T60 PO; -CENT1TAB2 PO; -CYCL10TA PO; -EFFE75CA2 PO; -FLOM0.4C39 PO; -IRON65TA2 PO; +ISOVUE-M 300 61% 15ML VIAL (Q9967) As Ordered ONE; -KETO10TAB PO; -KLON0.5T PO; -LEVOTAB10 PO; +LIDOCAINE 1% SDV INJ 30 ML VIAL As Ordered ONE; -LISI-542 PO; +MINI1CAP; -MINI1CAP PO; -NEXI40CA PO; -PERC5TAB12 PO; -TRAZ-252 PO; +TRIAMCINOLONE ACETONIDE SUSP 40 MG/ML VIAL (J3301) As Ordered ONE; -VERA300C6 PO; -VITA500T40 PO; +diazePAM 5 MG TAB As Ordered ONE; +oxyCODONE 5MG TAB As Ordered ONE
--- NOTE | 2019-04-10 10:23 | REP ---
C-ARM VIEWS CERVICAL SPINE: CLINICAL HISTORY: Pain . Two AP views of the cervical spine performed during cervical facet injection by Dr. Lea. Bilateral needles are seen along the cervical facets and contrast is injected. 14 seconds of fluoroscopy time is utilized. Electronically Signed by Hernesto Lugo MD 04/10/2019 05:35 P
--- NOTE | 2019-04-26 01:02 | ECWPNPC ---
PATIENT NAME: JOE DOTSON : 1960 GENDER: MALE VISIT DATE: 04/10/2019 DISCHARGE DATE: 04/10/19 1016 VISIT LOCKED DATE TIME: PHYSICIAN: BARBRA HART MD RESOURCE: BARBRA HART MD REASON FOR APPOINTMENT 1. BILAT THERAPEUTIC FB C3-C4, C4-C5, C5-C6 HISTORY OF PRESENT ILLNESS HISTORY OF PRESENT ILLNESS: PAIN THE PATIENT DESCRIBES THE PAIN... FALL RISK SCREENING: SCREENING :NO FALLS REPORTED IN THE LAST YEAR CURRENT MEDICATIONS TAKING ALLOPURINOL 300 MG TABLET 1 TABLET ORALLY ONCE A DAY, NOTES: 04/09 M TAKING VERAPAMIL HCL 300 MG CAPSULE EXTENDED RELEASE 24 HOUR 1 CAPSULE AT BEDTIME ORALLY ONCE A DAY TAKING FLEXERIL 10 MG TABLET 1 TABLET ORALLY TID TAKING XYZAL 5 MG TABLET 1 TABLET IN THE EVENING ORALLY ONCE A DAY TAKING EFFEXOR XR 150 MG CAPSULE EXTENDED RELEASE 24 HOUR 2 CAPSULE WITH FOOD ORALLY ONCE A DAY TAKING EFFEXOR XR 75 MG CAPSULE EXTENDED RELEASE 24 HOUR 1 CAPSULE WITH FOOD ORALLY ONCE A DAY TAKING NEXIUM 40 MG CAPSULE DELAYED RELEASE 1 CAPSULE ORALLY TWICE DAILY TAKING CENTRUM ADULTS - TABLET ORALLY DAILY TAKING VITAMIN B12 500 MCG TABLET 1 TABLET ORALLY ONCE A DAY TAKING LISINOPRIL 5 MG TABLET 1 TABLET ORALLY ONCE A DAY TAKING KLONOPIN 0.5 MG TABLET 1 TABLET ORALLY FOUR TIMES PER DAY TAKING NEURONTIN 300 MG CAPSULE 1 CAPSULE ORALLY TWICE DAILY TAKING PRAZOSIN HCL 2 MG CAPSULE 2 CAPSULE AT BEDTIME ORALLY ONCE A DAY TAKING TRAZODONE HCL 50 MG TABLET 2 TABLETS AT BEDTIME ORALLY ONCE A DAY TAKING IRON 325 (65 FE) MG TABLET 1 TABLET ORALLY TWICE DAILY TAKING ABILIFY 1 TABLET ORALLY AT BEDTIME TAKING CALCIUM 500 500-250-200 MG-MG-UNIT TABLET 1 TABLET AFTER A MEAL ORALLY BID TAKING TYLENOL WITH CODEINE #3 300-30 MG TABLET 1 TABLET NEEDED ORALLY TID NEEDED FOR PAIN MDD 3 NOT-TAKING REMERON 15 MG TABLET 1 TABLET AT BEDTIME ORALLY ONCE A DAY NOT-TAKING MAGNESIUM GLUCONATE 500 MG TABLET DIRECTED ORALLY , NOTES: NOT STARTED YET NOT-TAKING TRAMADOL HCL 50 MG TABLET 1 TABLET NEEDED ORALLY 3 TIMES DAILY NEEDED NOT-TAKING ZOCOR 40 MG TABLET 1 TABLET EVERY EVENING ORALLY ONCE A DAY NOT-TAKING MYA 180 MG TABLET 1 TABLET ORALLY ONCE A DAY NOT-TAKING METHOCARBAMOL 750 MG TABLET 1 TABLET ORALLY EVERY 4 HRS NOT-TAKING DARVOCET-N 100 100-650 MG TABLET 1 TABLET NEEDED FOR PAIN ORALLY EVERY 4 HRS NOT-TAKING PAXIL 20 MG TABLET 1 TABLET IN THE MORNING ORALLY ONCE A DAY NOT-TAKING LYRICA 300 MG CAPSULE 1 CAPSULE ORALLY TWICE A DAY NOT-TAKING PRILOSEC 20 MG CAPSULE DELAYED RELEASE 1 CAPSULE ORALLY ONCE A DAY NOT-TAKING LUNESTA 2 MG TABLET 1 TABLET IMMEDIATELY BEFORE BEDTIME ORALLY ONCE A DAY NOT-TAKING ULTRAM ER 200 MG TABLET EXTENDED RELEASE 24 HOUR 1 TABLET ORALLY ONCE A DAY NOT-TAKING TOPAMAX 200 MG TABLET 1 TABLET ORALLY TWICE A DAY NOT-TAKING POTASSIUM CITRATE 1080 MG TABLET EXTENDED RELEASE 1 TABLET WITH MEALS ORALLY THREE TIMES A DAY MEDICATION LIST REVIEWED AND RECONCILED WITH THE PATIENT PAST MEDICAL HISTORY HYPERLIPIDEMIA ESOPHAGEAL REFLUX KIDNEY STONES HYPERTENSION PTSD BARRETTS ESOPHAGUS CHRONIC KIDNEY DISEASE SYNDROME BILATERRAL CARPAL TUNNEL ALLERGIES ZANAFLEX: BRADYCARDIA - SIDE EFFECTS SURGICAL HISTORY HERNIA REPAIR CHOLECYSTECTOMY TUMOR RESECTED LEFT SHOULDER LITHOTRIPSY GASTIC BYPASS 2013 BILATERAL CARPAL TUNNEL LEFT MOST RECENT [id number] FAMILY HISTORY FATHER: ALIVE MOTHER: , DIAGNOSED WITH OTHER MALIGNANT NEOPLASM OF UNSPECIFIED SITE SIBLINGS: OTHER MALIGNANT NEOPLASM OF UNSPECIFIED SITE MATERNAL GRAND MOTHER: DIABETES 2 SISTER(S) . 1 SON(S) , 1 DAUGHTER(S) - HEALTHY. NO PROSTATE,KIDNEY OR BLADDER CANCER MOTHER WITH BREAST CANCER SISTER WITH UTERINE CANCER GRANDFATHER UNKNOWN CANCER. SOCIAL HISTORY GENERAL: TOBACCO USE ARE YOU A:NONSMOKER IMMUNIZATION PROGRAM DO YOU FEEL SAFE IN YOUR ENVIRONMENT? NODISABLED FROM WORK , REGULAR PORTIION CONTROOLLED, DAILY, WALKS, , SPOUSE, CHILDREN. OTHERS AT HOME: DO YOU FEEL SAFE IN YOUR ENVIRONMENT? NODISABLED FROM WORK , REGULAR PORTIION CONTROOLLED, DAILY, WALKS, . HOUSING: PFS REFERRAL NEEDED? NO, CLERGY REFERRAL NEEDED? NO, PUBLIC HEALTH REFERRAL NEEDED? NO, WAS THE PROVIDER NOTIFIED OF ANY PERTINENT INFO? NO, HAS THE PATIENT BEEN EDUCATED REGARDING HIS/HER PLAN OF CARE? YES, HAS THE PATIENT BEEN EDUCATED REGARDING PAIN, THE RISK FOR PAIN, THE IMPORTANCE OF EFFECTIVE PAIN MANAGEMENT, AND THE PAIN ASSESSMENT PROCESS? YES. EDUCATION LEVEL OF EDUCATION:NOT ANSWERED [employer] DIET: REGULAR. LANGUAGE LANGUAGES SPOKEN:VIETNAMESE NEW PATIENT PAIN DIARY MONOGAMOUS? YES. RECREATIONAL DRUG USE DRUG USE?NO EXERCISE: NONE. LEARNING BARRIERS / SPECIAL NEEDS SPECIAL DEVICES?YES CPAP PAIN CLINIC PFS, CLERGY, PUBLIC HEALTH REFERRALS PFS REFERRAL NEEDED?NO CLERGY REFERRAL NEEDED?NO PUBLIC HEALTH REFERRAL NEEDED?NO WAS THE PROVIDER NOTIFIED OF ANY PERTINENT INFO?YES HAS THE PATIENT BEEN EDUCATED REGARDING HIS/HER PLAN OF CARE?YES HAS THE PATIENT BEEN EDUCATED REGARDING PAIN, THE RISK FOR PAIN, THE IMPORTANCE OF EFFECTIVE PAIN MANAGEMENT, AND THE PAIN ASSESSMENT PROCESS?YES LATEX QUESTIONNAIRE LATEX ALLERGY : HAVE YOU EVER DEVELOPED ANY TYPE OF REACTION AFTER HANDLING LATEX PRODUCTS SUCH RUBBER GLOVES, CONDOMS, DIAPHRAGMS, BALLOONS, SOCKS, OR UNDERWEAR?NO LATEX ALLERGY : HAVE YOU EVER DEVELOPED ANY TYPE OF REACTION DURING OR AFTER DENTAL APPOINTMENT, VAGINAL/RECTAL EXAMINATION, SURGICAL PROCEDURE, OR ANY OTHER EXPOSURE?NO LATEX RISK : HAVE YOU EVER HAD ANY DIFFICULTY BREATHING OR HIVES AFTER EATING OR HANDLING ANY FRUITS, OR VEGETABLES; SUCH KIWI, BANANAS, STONE FRUITS, OR CHESTNUTSNO LATEX RISK : DO YOU HAVE A PREVIOUS PERSONAL HISTORY OF MORE THAN NINE SURGERIES, SPINA BIFIDA, OR REPEATED CATHERIZATIONS? NO LATEX RISK : ARE YOU FREQUENTLY EXPOSED TO LATEX PRODUCTS IN YOUR OCCUPATION?NO DATE ASKED : 04/10/2019 CAFFEINE CAFFEINE USE?NO ADVANCE DIRECTIVE ADVANCE DIRECTIVE DISCUSSED WITH PATIENT:YES HCP IS JULIET DOTSON [phone] ORIENTAL ORTHODOX ORIENTAL ORTHODOX PROTESTANT MARITAL STATUS: DO YOU FEEL SAFE IN YOUR ENVIRONMENT? NODISABLED FROM WORK , REGULAR PORTIION CONTROOLLED, DAILY, WALKS. ALCOHOL SCREENING DID YOU HAVE A DRINK CONTAINING ALCOHOL IN THE PAST YEAR?NO POINTS0 INTERPRETATIONNEGATIVE NOT A SMOKER OR ETOH. EXCEL ANALYST BY PROFESSIONREVIEWED WITH PT, 10/18/18 1130 LASREVIEWED WITH PT 02/13/19 1039 BVREVIEWED WITH PATIENT 03/17/19 0911 NLJ. HOSPITALIZATION/MAJOR DIAGNOSTIC PROCEDURE SURGERY RELATED REVIEW OF SYSTEMS REVIEWED BY: PROVIDER: . CONSTITUTIONAL: ANY CHANGE IN YOUR MEDICAL CONDITION? NO . CHILLS NO . FEVER NO . INFECTION: DO YOU HAVE NEW INFECTIONS? NO . DO YOU HAVE HISTORY OF MRSA? NO . MUSCULOSKELETAL: ANY NEW PATTERNS OF PAIN OR NUMBNESS? YES, INCREASED PAIN, PAIN IS RADIATING DOWN TO BOTH SHOULDERS AND DOWN BOTH ARMS . GASTROENTEROLOGY: ANY NEW CHANGE IN BOWEL CONTROL? NO . GENITOURINARY: ANY NEW CHANGE IN BLADDER CONTROL? NO . IS THERE A CHANCE YOU COULD BE ? NO . HEMATOLOGY/LYMPH: DO YOU TAKE ANY BLOOD THINNERS? (FOR EXAMPLE- COUMADIN, PLAVIX, AGGRENOX, PLATEL, PRADAXA, OR XARELTO) NO . WHEN WAS YOUR LAST DOSE? DATE: TIME: . NEUROLOGY: HAVE YOU FALLEN IN THE PAST 12 MONTHS? NO . ANY NEW EXTREMITY NUMBNESS OR WEAKNESS? NO . CARDIOLOGY: DO YOU HAVE A PACEMAKER OR DEFIBRILLATOR? NO . RESPIRATORY: HAVE YOU BEEN SICK IN THE PAST WEEK? NO . FEVER NO . FLU LIKE SYMPTOMS? NO . COUGH NO . INTEGUMENTARY: DO YOU HAVE ANY RASHES OR OPEN SORES? NO . ALLERGIC/IMMUNO: ARE YOU ALLERGIC TO IV DYE? NO . ANY NEW ALLERGIES? NO . PSYCHIATRIC: DO YOU HAVE THOUGHTS OF HURTING YOURSELF OR SOMEONE ELSE? NO . ARE YOU ABUSED, NEGLECTED, OR IN AN UNSAFE ENVIRONMENT? NO . ENDOCRINOLOGY: ARE YOU DIABETIC? NO . OTHER: DO YOU NEED ANY PRESCRIPTIONS? NO . IF YES, PLEASE LIST: ____ . ANY NEW PROBLEMS WITH YOUR MEDICATIONS? NO . WHEN DID YOU LAST EAT? 04/09 6P . WHEN DID YOU LAST DRINK? 04/10 5AM . WHAT DID YOU LAST DRINK? JUICE . NAME OF PERSON DRIVING YOU HOME? OR SON . DO YOU HAVE ANY OTHER QUESTIONS OR CONCERNS NO . VITAL SIGNS WT 318 LBS, HT 69 IN, BMI 46.96 INDEX, BP 146/90 MM HG, HR 75 /MIN, RR 18 /MIN, TEMP 98.9 F, OXYGEN SAT % 96%, SAFE IN ENV? (Y/N) Y, NA INITIALS AK 08:41, REVIEWED BY: [place]. ASSESSMENTS SPONDYLOSIS OF CERVICAL REGION WITHOUT MYELOPATHY OR RADICULOPATHY - M47.812 (PRIMARY) PROCEDURES PN CERVICAL FACET BLOCK LOW BILATERAL CERVICAL PRE PROCEDURE DIAGNOSIS CERVICAL SPONDYLOSIS POST PROCEDURE DIAGNOSIS CERVICAL SPONDYLOSIS PROCEDURE BILATERAL C3-C4, C4-C5, C5-C6 CERVICAL THERAPEUTIC FACET BLOCK SURGEON DR. BARBRA HART KILN PLACER NONE ANESTHESIA LOCAL PRE PROCEDURE NOTE THE PATIENT HAS HISTORY OF CHRONIC CERVICAL PAIN. I EVALUATED THE PATIENT AND REVIEWED THE CHART. I WENT OVER THE RISKS, ALTERNATIVES, AND BENEFITS ASSOCIATED WITH THIS PROCEDURE. THE PATIENT WOULD LIKE TO PROCEED AND GIVES CONSENT TO PERFORM THE PROCEDURE. THE PATIENT DENIES UNEXPLAINABLE WEIGHT LOSS, FEVER, CHILLS, OR NEW CHANGES IN URINARY OR BOWEL CONTROL. DESCRIPTION OF PROCEDURE THE PATIENT WAS BROUGHT TO THE PROCEDURE ROOM AND PLACED IN THE PRONE POSITION. THE CERVICOTHORACIC AREA WAS CLEANED WITH CHLORAPREP SOLUTION AND DRAPED ASEPTICALLY. THE PROCEDURE WAS DONE UNDER STERILE CONDITIONS. I CHECKED LATERALITY AND THE LEVEL WHERE THE PROCEDURE WAS GOING TO BE PERFORMED WITH THE PATIENT AND THE SUPPORTING STAFF AT THE MOMENT OF THE TIME OUT IN THE PROCEDURE ROOM. UNDER FLUOROSCOPIC GUIDANCE, TARGET POINT WAS SELECTED AT THE RIGHT AND LEFT C3-C4, RIGHT AND LEFT C4-C5, AND RIGHT AND LEFT C5-C6 CERVICAL FACET JOINTS. TARGET POINTS WERE SELECTED AFTER LATERAL ROTATION AND TILT OF THE MAGNIFIER OF THE C-ARM. LIDOCAINE 0.5% WAS USED TO NUMB THE SKIN AND THE SUBCUTANEOUS TISSUE BELOW IT. SPINAL NEEDLES, 22-GAUGE, WERE ADVANCED UNDER FLUOROSCOPIC GUIDANCE AND FOLLOWING PATIENT FEEDBACK UNTIL THE TARGETS WERE TOUCHED. THE POSITION OF THE NEEDLES WAS VERIFIED WITH AP AND LATERAL VIEWS. AFTER PROPER POSITION OF THE NEEDLES WAS ACHIEVED, ISOVUE M DYE 30, 0.1 ML WAS INJECTED SHOWING SPREAD OF THE DYE. THEN A SOLUTION OF 0.9 ML OF BUPIVACAINE 0.125% AND KENALOG 10 MG WAS INJECTED AT EACH SITE. THERE WAS NO EVIDENCE OF BLOOD, PARESTHESIA OR CEREBROSPINAL FLUID DURING THE PROCEDURE. THE PATIENT WAS SENT TO THE RECOVERY ROOM. THE PATIENT WAS MOVING THE EXTREMITIES AND DOING WELL. THERE WAS NO COMPLICATION DURING THE PROCEDURE. FLUOROSCOPY TIME WAS 14 SECONDS POST PROCEDURE NOTE THE PATIENT WILL BE SEEN IN A FOLLOW UP IN THE NEXT FEW WEEKS. INSTRUCTIONS WERE GIVEN, QUESTIONS WERE ANSWERED, AND THE PATIENT EXPRESSED UNDERSTANDING AND AGREES WITH THE PLAN. I, JOSIE ALEMAN, DOCUMENTED THE ABOVE INFORMATION ACTING A SCRIBE FOR DR. HART. I HAVE REVIEWED THE ABOVE DOCUMENT, WRITTEN BY JOSIE DIAL AND I VERIFY THAT IT IS ACCURATE. DIAGNOSTIC IMAGING [facility] FACET BLOCK (PAIN)[id number] PROCEDURE CODES 38337 INJ PARAVERT F JNT C/T 1 LEV, MODIFIERS: 50 [id number] INJ PARAVERT F JNT C/T 2 LEV, MODIFIERS: 50 [id number] INJ PARAVERT F JNT C/T 3 LEV, MODIFIERS: 50 [id number] RADXPS IN END [id number] PXD DISPOSITION & COMMUNICATION FOLLOW UP 3 WEEKS ELECTRONICALLY SIGNED BY BARBRA HART MD, MD ON 04/25/2019 AT 09:42 AM EDT DISCLAIMER : THIS IS A VISIT SUMMARY EXTRACTED FROM THE [employer] CHART. IT IS NOT A COPY OF THE [employer] PROGRESS NOTE. PHIL
== END ==
LOC: M PAIN 08:30
PROVIDERS: ATTEND Anesthesiology
DX: M47.812 Spondylosis without myelopathy or radiculopathy, cervical region (principal); E78.5 Hyperlipidemia, unspecified; K21.9 Gastro-esophageal reflux disease without esophagitis; I12.9 Hypertensive chronic kidney disease with stage 1 through stage 4 chronic kidney disease, or unspecified chronic kidney disease; F43.10 Post-traumatic stress disorder, unspecified; K22.70 Barrett's esophagus without dysplasia; N18.9 Chronic kidney disease, unspecified; Z79.899 Other long term (current) drug therapy; Z88.8 Allergy status to other drugs, medicaments and biological substances
CPT/HCPCS: 64490; 64491; 64492; J3301; Q9967

== ENCOUNTER → 2019-04-24 | Outpatient (CLI) | payer BC ==
[~2019-04-24] MED LIST changes: -BUPIVACAINE HCL 0.25% 10 ML VIAL As Ordered ONE; -BUPIVACAINE HCL 0.25% 30 ML VIAL As Ordered ONE; -ISOVUE-M 300 61% 15ML VIAL (Q9967) As Ordered ONE; -LIDOCAINE 1% SDV INJ 30 ML VIAL As Ordered ONE; -TRIAMCINOLONE ACETONIDE SUSP 40 MG/ML VIAL (J3301) As Ordered ONE; -diazePAM 5 MG TAB As Ordered ONE; -oxyCODONE 5MG TAB As Ordered ONE
--- NOTE | 2019-04-26 01:02 | ECWPNPC ---
PATIENT NAME: JOE DOTSON : 1960 GENDER: MALE VISIT DATE: 04/24/2019 DISCHARGE DATE: 04/24/19 1010 VISIT LOCKED DATE TIME: PHYSICIAN: KENNEDY MILES RESOURCE: KENNEDY MILES REASON FOR APPOINTMENT 1. POST PROCEDURE HISTORY OF PRESENT ILLNESS HISTORY OF PRESENT ILLNESS: PAIN THE PATIENT DESCRIBES THE PAIN... 59-YEAR-OLD MALE IN FOR POST FACET BLOCK FOLLOW-UP. HE RATES HIS PAIN PREPROCEDURE AT AN 8 OUT OF 10 AND POSTPROCEDURE AT A 0 OUT OF 10. HE FEELS THE PROCEDURE WORKED WELL. HE RATES HIS PAIN CURRENTLY AT A 5 OUT OF 10 AND DESCRIBES IT ACHING, BURNING, STABBING, SORE, AND TENDER. FALL RISK SCREENING: SCREENING :NO FALLS REPORTED IN THE LAST YEAR CURRENT MEDICATIONS TAKING ALLOPURINOL 300 MG TABLET 1 TABLET ORALLY ONCE A DAY, NOTES: 9/18 M TAKING VERAPAMIL HCL 300 MG CAPSULE EXTENDED RELEASE 24 HOUR 1 CAPSULE AT BEDTIME ORALLY ONCE A DAY TAKING FLEXERIL 10 MG TABLET 1 TABLET ORALLY TID TAKING XYZAL 5 MG TABLET 1 TABLET IN THE EVENING ORALLY ONCE A DAY TAKING EFFEXOR XR 150 MG CAPSULE EXTENDED RELEASE 24 HOUR 2 CAPSULE WITH FOOD ORALLY ONCE A DAY TAKING EFFEXOR XR 75 MG CAPSULE EXTENDED RELEASE 24 HOUR 1 CAPSULE WITH FOOD ORALLY ONCE A DAY TAKING NEXIUM 40 MG CAPSULE DELAYED RELEASE 1 CAPSULE ORALLY TWICE DAILY TAKING CENTRUM ADULTS - TABLET ORALLY DAILY TAKING VITAMIN B12 500 MCG TABLET 1 TABLET ORALLY ONCE A DAY TAKING LISINOPRIL 5 MG TABLET 1 TABLET ORALLY ONCE A DAY TAKING KLONOPIN 0.5 MG TABLET 1 TABLET ORALLY FOUR TIMES PER DAY TAKING NEURONTIN 300 MG CAPSULE 1 CAPSULE ORALLY TWICE DAILY TAKING PRAZOSIN HCL 2 MG CAPSULE 2 CAPSULE AT BEDTIME ORALLY ONCE A DAY TAKING TRAZODONE HCL 50 MG TABLET 2 TABLETS AT BEDTIME ORALLY ONCE A DAY TAKING IRON 325 (65 FE) MG TABLET 1 TABLET ORALLY TWICE DAILY TAKING ABILIFY 1 TABLET ORALLY AT BEDTIME TAKING CALCIUM 500 500-250-200 MG-MG-UNIT TABLET 1 TABLET AFTER A MEAL ORALLY BID TAKING TYLENOL WITH CODEINE #3 300-30 MG TABLET 1 TABLET NEEDED ORALLY TID NEEDED FOR PAIN MDD 3 NOT-TAKING REMERON 15 MG TABLET 1 TABLET AT BEDTIME ORALLY ONCE A DAY NOT-TAKING MAGNESIUM GLUCONATE 500 MG TABLET DIRECTED ORALLY , NOTES: NOT STARTED YET NOT-TAKING TRAMADOL HCL 50 MG TABLET 1 TABLET NEEDED ORALLY 3 TIMES DAILY NEEDED NOT-TAKING ZOCOR 40 MG TABLET 1 TABLET EVERY EVENING ORALLY ONCE A DAY NOT-TAKING MYA 180 MG TABLET 1 TABLET ORALLY ONCE A DAY NOT-TAKING METHOCARBAMOL 750 MG TABLET 1 TABLET ORALLY EVERY 4 HRS NOT-TAKING DARVOCET-N 100 100-650 MG TABLET 1 TABLET NEEDED FOR PAIN ORALLY EVERY 4 HRS NOT-TAKING PAXIL 20 MG TABLET 1 TABLET IN THE MORNING ORALLY ONCE A DAY NOT-TAKING LYRICA 300 MG CAPSULE 1 CAPSULE ORALLY TWICE A DAY NOT-TAKING PRILOSEC 20 MG CAPSULE DELAYED RELEASE 1 CAPSULE ORALLY ONCE A DAY NOT-TAKING LUNESTA 2 MG TABLET 1 TABLET IMMEDIATELY BEFORE BEDTIME ORALLY ONCE A DAY NOT-TAKING ULTRAM ER 200 MG TABLET EXTENDED RELEASE 24 HOUR 1 TABLET ORALLY ONCE A DAY NOT-TAKING TOPAMAX 200 MG TABLET 1 TABLET ORALLY TWICE A DAY NOT-TAKING POTASSIUM CITRATE 1080 MG TABLET EXTENDED RELEASE 1 TABLET WITH MEALS ORALLY THREE TIMES A DAY MEDICATION LIST REVIEWED AND RECONCILED WITH THE PATIENT PAST MEDICAL HISTORY HYPERLIPIDEMIA ESOPHAGEAL REFLUX KIDNEY STONES HYPERTENSION PTSD BARRETTS ESOPHAGUS CHRONIC KIDNEY DISEASE SYNDROME BILATERRAL CARPAL TUNNEL ALLERGIES ZANAFLEX: BRADYCARDIA - SIDE EFFECTS SURGICAL HISTORY HERNIA REPAIR CHOLECYSTECTOMY TUMOR RESECTED LEFT SHOULDER LITHOTRIPSY GASTIC BYPASS 2013 BILATERAL CARPAL TUNNEL LEFT MOST RECENT [phone] FAMILY HISTORY FATHER: ALIVE MOTHER: , DIAGNOSED WITH OTHER MALIGNANT NEOPLASM OF UNSPECIFIED SITE SIBLINGS: OTHER MALIGNANT NEOPLASM OF UNSPECIFIED SITE MATERNAL GRAND MOTHER: DIABETES 2 SISTER(S) . 1 SON(S) , 1 DAUGHTER(S) - HEALTHY. NO PROSTATE,KIDNEY OR BLADDER CANCER MOTHER WITH BREAST CANCER SISTER WITH UTERINE CANCER GRANDFATHER UNKNOWN CANCER. SOCIAL HISTORY GENERAL: TOBACCO USE ARE YOU A:NONSMOKER IMMUNIZATION PROGRAM DO YOU FEEL SAFE IN YOUR ENVIRONMENT? NODISABLED FROM WORK , REGULAR PORTIION CONTROOLLED, DAILY, WALKS, , SPOUSE, CHILDREN. OTHERS AT HOME: DO YOU FEEL SAFE IN YOUR ENVIRONMENT? NODISABLED FROM WORK , REGULAR PORTIION CONTROOLLED, DAILY, WALKS, . HOUSING: PFS REFERRAL NEEDED? NO, CLERGY REFERRAL NEEDED? NO, PUBLIC HEALTH REFERRAL NEEDED? NO, WAS THE PROVIDER NOTIFIED OF ANY PERTINENT INFO? NO, HAS THE PATIENT BEEN EDUCATED REGARDING HIS/HER PLAN OF CARE? YES, HAS THE PATIENT BEEN EDUCATED REGARDING PAIN, THE RISK FOR PAIN, THE IMPORTANCE OF EFFECTIVE PAIN MANAGEMENT, AND THE PAIN ASSESSMENT PROCESS? YES. EDUCATION LEVEL OF EDUCATION:NOT ANSWERED [employer] DIET: REGULAR. LANGUAGE LANGUAGES SPOKEN:MONGOLIAN NEW PATIENT PAIN DIARY MONOGAMOUS? YES. RECREATIONAL DRUG USE DRUG USE?NO EXERCISE: NONE. LEARNING BARRIERS / SPECIAL NEEDS SPECIAL DEVICES?YES CPAP PAIN CLINIC PFS, CLERGY, PUBLIC HEALTH REFERRALS PFS REFERRAL NEEDED?NO CLERGY REFERRAL NEEDED?NO PUBLIC HEALTH REFERRAL NEEDED?NO WAS THE PROVIDER NOTIFIED OF ANY PERTINENT INFO?YES HAS THE PATIENT BEEN EDUCATED REGARDING HIS/HER PLAN OF CARE?YES HAS THE PATIENT BEEN EDUCATED REGARDING PAIN, THE RISK FOR PAIN, THE IMPORTANCE OF EFFECTIVE PAIN MANAGEMENT, AND THE PAIN ASSESSMENT PROCESS?YES LATEX QUESTIONNAIRE LATEX ALLERGY : HAVE YOU EVER DEVELOPED ANY TYPE OF REACTION AFTER HANDLING LATEX PRODUCTS SUCH RUBBER GLOVES, CONDOMS, DIAPHRAGMS, BALLOONS, SOCKS, OR UNDERWEAR?NO LATEX ALLERGY : HAVE YOU EVER DEVELOPED ANY TYPE OF REACTION DURING OR AFTER DENTAL APPOINTMENT, VAGINAL/RECTAL EXAMINATION, SURGICAL PROCEDURE, OR ANY OTHER EXPOSURE?NO DATE ASKED : 04/10/2019 LATEX RISK : HAVE YOU EVER HAD ANY DIFFICULTY BREATHING OR HIVES AFTER EATING OR HANDLING ANY FRUITS, OR VEGETABLES; SUCH KIWI, BANANAS, STONE FRUITS, OR CHESTNUTSNO LATEX RISK : DO YOU HAVE A PREVIOUS PERSONAL HISTORY OF MORE THAN NINE SURGERIES, SPINA BIFIDA, OR REPEATED CATHERIZATIONS? NO LATEX RISK : ARE YOU FREQUENTLY EXPOSED TO LATEX PRODUCTS IN YOUR OCCUPATION?NO CAFFEINE CAFFEINE USE?NO ADVANCE DIRECTIVE ADVANCE DIRECTIVE DISCUSSED WITH PATIENT:YES HCP IS JULIET DOTSON [phone] CAODAISM CAODAISM DENOMINATIONAL MARITAL STATUS: DO YOU FEEL SAFE IN YOUR ENVIRONMENT? NODISABLED FROM WORK , REGULAR PORTIION CONTROOLLED, DAILY, WALKS. ALCOHOL SCREENING DID YOU HAVE A DRINK CONTAINING ALCOHOL IN THE PAST YEAR?NO POINTS0 INTERPRETATIONNEGATIVE NOT A SMOKER OR ETOH. NAMED ACCOUNT EXECUTIVE BY PROFESSIONREVIEWED WITH PT, 10/18/18 1130 LASREVIEWED WITH PT 02/13/19 1039 BVREVIEWED WITH PATIENT 03/17/19 0911 NLJREVIEWED WITH PATIENT 04/24/19 0945 LAS. HOSPITALIZATION/MAJOR DIAGNOSTIC PROCEDURE SURGERY RELATED REVIEW OF SYSTEMS REVIEWED BY: PROVIDER: SHARLENE GARCIA . CONSTITUTIONAL: ANY CHANGE IN YOUR MEDICAL CONDITION? NO . CHILLS NO . FEVER NO . INFECTION: DO YOU HAVE NEW INFECTIONS? NO . DO YOU HAVE HISTORY OF MRSA? NO . MUSCULOSKELETAL: ANY NEW PATTERNS OF PAIN OR NUMBNESS? NO . GASTROENTEROLOGY: ANY NEW CHANGE IN BOWEL CONTROL? NO . GENITOURINARY: ANY NEW CHANGE IN BLADDER CONTROL? NO . IS THERE A CHANCE YOU COULD BE ? NO . HEMATOLOGY/LYMPH: DO YOU TAKE ANY BLOOD THINNERS? (FOR EXAMPLE- COUMADIN, PLAVIX, AGGRENOX, PLATEL, PRADAXA, OR XARELTO) NO . WHEN WAS YOUR LAST DOSE? DATE: TIME: . NEUROLOGY: HAVE YOU FALLEN IN THE PAST 12 MONTHS? YES PT REPORTS HE FELL OFF HIS TRACTOR A COUPLE OF WEEKS AGO, DENIES INJURY, NO ED VISIT, NO MD VISIT. . ANY NEW EXTREMITY NUMBNESS OR WEAKNESS? NO . CARDIOLOGY: DO YOU HAVE A PACEMAKER OR DEFIBRILLATOR? NO . RESPIRATORY: HAVE YOU BEEN SICK IN THE PAST WEEK? NO . FEVER NO . FLU LIKE SYMPTOMS? NO . COUGH NO . INTEGUMENTARY: DO YOU HAVE ANY RASHES OR OPEN SORES? NO . ALLERGIC/IMMUNO: ARE YOU ALLERGIC TO IV DYE? NO . ANY NEW ALLERGIES? NO . PSYCHIATRIC: DO YOU HAVE THOUGHTS OF HURTING YOURSELF OR SOMEONE ELSE? NO . ARE YOU ABUSED, NEGLECTED, OR IN AN UNSAFE ENVIRONMENT? NO . ENDOCRINOLOGY: ARE YOU DIABETIC? NO . OTHER: DO YOU NEED ANY PRESCRIPTIONS? YES . IF YES, PLEASE LIST: ____TYLENOL # 3 BEFORE NEXT APPOINTMENT . ANY NEW PROBLEMS WITH YOUR MEDICATIONS? NO . WHEN DID YOU LAST EAT? ____ . WHEN DID YOU LAST DRINK? ____ . WHAT DID YOU LAST DRINK? ____ . NAME OF PERSON DRIVING YOU HOME? ____ . DO YOU HAVE ANY OTHER QUESTIONS OR CONCERNS NO . VITAL SIGNS WT 314.2 LBS, HT 69 IN, BMI 46.39 INDEX, BP 136/74 MM HG, HR 70 /MIN, RR 18 /MIN, TEMP 97.7 F, OXYGEN SAT % 95%, SAFE IN ENV? (Y/N) YES, NA INITIALS UT 09:39, REVIEWED BY: JESSICA. EXAMINATION GENERAL EXAMINATION: GENERALNO ACUTE DISTRESS, WELL NOURISHED AND HYDRATED. PSYCHAPPROPRIATE MOOD AND AFFECT . LUNGS:CLEAR TO AUSCULTATION BILATERALLY, NO WHEEZES, RHONCHI, RALES. HEART:NO MURMURS, REGULAR RATE AND RHYTHM. ASSESSMENTS SPONDYLOSIS OF CERVICAL REGION WITHOUT MYELOPATHY OR RADICULOPATHY - M47.812 (PRIMARY) TREATMENT SPONDYLOSIS OF CERVICAL REGION WITHOUT MYELOPATHY OR RADICULOPATHY CLINICAL NOTES: 59-YEAR-OLD MALE IN FOR POST FACET BLOCK FOLLOW-UP. GIVEN PRESENTING SYMPTOMS AND RESULTS OF PHYSICAL EXAMINATION RECOMMENDED FOLLOW-UP IN ONE MONTH. PATIENT HAS EXPRESSED UNDERSTANDING OF AND WAS IN AGREEMENT WITH TREATMENT PLAN. GIVEN TIME TO ASK QUESTIONS AND EXPRESS CONCERNS. PROCEDURE CODES FA211 ESTABILISHED PATIENT [facility] CHARGE DISPOSITION & COMMUNICATION FOLLOW UP 4 WEEKS (REASON: CHRONIC PAIN) ELECTRONICALLY SIGNED BY CINDY GAMEZ ON 04/25/2019 AT 08:46 AM EDT DISCLAIMER : THIS IS A VISIT SUMMARY EXTRACTED FROM THE [employer] CHART. IT IS NOT A COPY OF THE [employer] PROGRESS NOTE. PHIL
== END ==
LOC: M PAIN 09:45
PROVIDERS: ATTEND Family Medicine
DX: M47.812 Spondylosis without myelopathy or radiculopathy, cervical region (principal); E78.5 Hyperlipidemia, unspecified; K21.9 Gastro-esophageal reflux disease without esophagitis; I10 Essential (primary) hypertension; Z86.59 Personal history of other mental and behavioral disorders; Z98.84 Bariatric surgery status; Z88.8 Allergy status to other drugs, medicaments and biological substances; E66.01 Morbid (severe) obesity due to excess calories; Z68.42 Body mass index [BMI] 45.0-49.9, adult; Z79.899 Other long term (current) drug therapy

== ENCOUNTER → 2019-05-16 | Outpatient (CLI) | payer BC ==
--- NOTE | 2019-05-20 01:38 | ECWPNPC ---
PATIENT NAME: JOE DOTSON : 1960 GENDER: MALE VISIT DATE: 05/16/2019 DISCHARGE DATE: 05/16/19 1030 VISIT LOCKED DATE TIME: PHYSICIAN: KENNEDY MILES RESOURCE: KENNEDY MILES REASON FOR APPOINTMENT 1. NECK HISTORY OF PRESENT ILLNESS HISTORY OF PRESENT ILLNESS: PAIN THE PATIENT DESCRIBES THE PAIN... 59-YEAR-OLD MALE IN FOR CHRONIC PAIN FOLLOW-UP. HE RATES HIS PAIN CURRENTLY AT A 7 OUT OF 10 AND DESCRIBES IT ACHING, BURNING, SORE, TENDER, AND STABBING. HE FURTHER STATES THE PAIN IS CONTINUOUS AND IT LASTS ALL DAY. HE DOES ADMIT THAT HIS HEADACHES ARE RETURNING SINCE HIS LAST CERVICAL FACET BLOCK. FALL RISK SCREENING: SCREENING :NO FALLS REPORTED IN THE LAST YEAR CURRENT MEDICATIONS TAKING ALLOPURINOL 300 MG TABLET 1 TABLET ORALLY ONCE A DAY TAKING VERAPAMIL HCL 300 MG CAPSULE EXTENDED RELEASE 24 HOUR 1 CAPSULE AT BEDTIME ORALLY ONCE A DAY TAKING FLEXERIL 10 MG TABLET 1 TABLET ORALLY TID TAKING XYZAL 5 MG TABLET 1 TABLET IN THE EVENING ORALLY ONCE A DAY TAKING EFFEXOR XR 150 MG CAPSULE EXTENDED RELEASE 24 HOUR 2 CAPSULE WITH FOOD ORALLY ONCE A DAY TAKING EFFEXOR XR 75 MG CAPSULE EXTENDED RELEASE 24 HOUR 1 CAPSULE WITH FOOD ORALLY ONCE A DAY TAKING NEXIUM 40 MG CAPSULE DELAYED RELEASE 1 CAPSULE ORALLY TWICE DAILY TAKING CENTRUM ADULTS - TABLET ORALLY DAILY TAKING VITAMIN B12 500 MCG TABLET 1 TABLET ORALLY ONCE A DAY TAKING LISINOPRIL 5 MG TABLET 1 TABLET ORALLY ONCE A DAY TAKING KLONOPIN 0.5 MG TABLET 1 TABLET ORALLY FOUR TIMES PER DAY TAKING NEURONTIN 300 MG CAPSULE 1 CAPSULE ORALLY TWICE DAILY TAKING PRAZOSIN HCL 2 MG CAPSULE 2 CAPSULE AT BEDTIME ORALLY ONCE A DAY TAKING TRAZODONE HCL 50 MG TABLET 2 TABLETS AT BEDTIME ORALLY ONCE A DAY TAKING IRON 325 (65 FE) MG TABLET 1 TABLET ORALLY TWICE DAILY TAKING ABILIFY 1 TABLET ORALLY AT BEDTIME TAKING CALCIUM 500 500-250-200 MG-MG-UNIT TABLET 1 TABLET AFTER A MEAL ORALLY BID TAKING TYLENOL WITH CODEINE #3 300-30 MG TABLET 1 TABLET NEEDED ORALLY TID NEEDED FOR PAIN MDD 3 NOT-TAKING REMERON 15 MG TABLET 1 TABLET AT BEDTIME ORALLY ONCE A DAY NOT-TAKING MAGNESIUM GLUCONATE 500 MG TABLET DIRECTED ORALLY , NOTES: NOT STARTED YET NOT-TAKING TRAMADOL HCL 50 MG TABLET 1 TABLET NEEDED ORALLY 3 TIMES DAILY NEEDED NOT-TAKING ZOCOR 40 MG TABLET 1 TABLET EVERY EVENING ORALLY ONCE A DAY NOT-TAKING MYA 180 MG TABLET 1 TABLET ORALLY ONCE A DAY NOT-TAKING METHOCARBAMOL 750 MG TABLET 1 TABLET ORALLY EVERY 4 HRS NOT-TAKING DARVOCET-N 100 100-650 MG TABLET 1 TABLET NEEDED FOR PAIN ORALLY EVERY 4 HRS NOT-TAKING PAXIL 20 MG TABLET 1 TABLET IN THE MORNING ORALLY ONCE A DAY NOT-TAKING LYRICA 300 MG CAPSULE 1 CAPSULE ORALLY TWICE A DAY NOT-TAKING PRILOSEC 20 MG CAPSULE DELAYED RELEASE 1 CAPSULE ORALLY ONCE A DAY NOT-TAKING LUNESTA 2 MG TABLET 1 TABLET IMMEDIATELY BEFORE BEDTIME ORALLY ONCE A DAY NOT-TAKING ULTRAM ER 200 MG TABLET EXTENDED RELEASE 24 HOUR 1 TABLET ORALLY ONCE A DAY NOT-TAKING TOPAMAX 200 MG TABLET 1 TABLET ORALLY TWICE A DAY NOT-TAKING POTASSIUM CITRATE 1080 MG TABLET EXTENDED RELEASE 1 TABLET WITH MEALS ORALLY THREE TIMES A DAY MEDICATION LIST REVIEWED AND RECONCILED WITH THE PATIENT PAST MEDICAL HISTORY HYPERLIPIDEMIA ESOPHAGEAL REFLUX KIDNEY STONES HYPERTENSION PTSD BARRETTS ESOPHAGUS CHRONIC KIDNEY DISEASE SYNDROME BILATERRAL CARPAL TUNNEL ALLERGIES ZANAFLEX: BRADYCARDIA - SIDE EFFECTS SURGICAL HISTORY HERNIA REPAIR CHOLECYSTECTOMY TUMOR RESECTED LEFT SHOULDER LITHOTRIPSY GASTIC BYPASS 2013 BILATERAL CARPAL TUNNEL LEFT MOST RECENT [id number] FAMILY HISTORY FATHER: ALIVE MOTHER: , DIAGNOSED WITH OTHER MALIGNANT NEOPLASM OF UNSPECIFIED SITE SIBLINGS: OTHER MALIGNANT NEOPLASM OF UNSPECIFIED SITE MATERNAL GRAND MOTHER: DIABETES 2 SISTER(S) . 1 SON(S) , 1 DAUGHTER(S) - HEALTHY. NO PROSTATE,KIDNEY OR BLADDER CANCER MOTHER WITH BREAST CANCER SISTER WITH UTERINE CANCER GRANDFATHER UNKNOWN CANCER. SOCIAL HISTORY GENERAL: TOBACCO USE ARE YOU A:NONSMOKER IMMUNIZATION PROGRAM DO YOU FEEL SAFE IN YOUR ENVIRONMENT? NODISABLED FROM WORK , REGULAR PORTIION CONTROOLLED, DAILY, WALKS, , SPOUSE, CHILDREN. OTHERS AT HOME: DO YOU FEEL SAFE IN YOUR ENVIRONMENT? NODISABLED FROM WORK , REGULAR PORTIION CONTROOLLED, DAILY, WALKS, . HOUSING: PFS REFERRAL NEEDED? NO, CLERGY REFERRAL NEEDED? NO, PUBLIC HEALTH REFERRAL NEEDED? NO, WAS THE PROVIDER NOTIFIED OF ANY PERTINENT INFO? NO, HAS THE PATIENT BEEN EDUCATED REGARDING HIS/HER PLAN OF CARE? YES, HAS THE PATIENT BEEN EDUCATED REGARDING PAIN, THE RISK FOR PAIN, THE IMPORTANCE OF EFFECTIVE PAIN MANAGEMENT, AND THE PAIN ASSESSMENT PROCESS? YES. EDUCATION LEVEL OF EDUCATION:NOT ANSWERED [employer] DIET: REGULAR. LANGUAGE LANGUAGES SPOKEN:SWISS NEW PATIENT PAIN DIARY MONOGAMOUS? YES. RECREATIONAL DRUG USE DRUG USE?NO EXERCISE: NONE. LEARNING BARRIERS / SPECIAL NEEDS SPECIAL DEVICES?YES CPAP PAIN CLINIC PFS, CLERGY, PUBLIC HEALTH REFERRALS PFS REFERRAL NEEDED?NO CLERGY REFERRAL NEEDED?NO PUBLIC HEALTH REFERRAL NEEDED?NO WAS THE PROVIDER NOTIFIED OF ANY PERTINENT INFO?YES HAS THE PATIENT BEEN EDUCATED REGARDING HIS/HER PLAN OF CARE?YES HAS THE PATIENT BEEN EDUCATED REGARDING PAIN, THE RISK FOR PAIN, THE IMPORTANCE OF EFFECTIVE PAIN MANAGEMENT, AND THE PAIN ASSESSMENT PROCESS?YES LATEX QUESTIONNAIRE LATEX ALLERGY : HAVE YOU EVER DEVELOPED ANY TYPE OF REACTION AFTER HANDLING LATEX PRODUCTS SUCH RUBBER GLOVES, CONDOMS, DIAPHRAGMS, BALLOONS, SOCKS, OR UNDERWEAR?NO LATEX ALLERGY : HAVE YOU EVER DEVELOPED ANY TYPE OF REACTION DURING OR AFTER DENTAL APPOINTMENT, VAGINAL/RECTAL EXAMINATION, SURGICAL PROCEDURE, OR ANY OTHER EXPOSURE?NO DATE ASKED : 04/10/2019 LATEX RISK : HAVE YOU EVER HAD ANY DIFFICULTY BREATHING OR HIVES AFTER EATING OR HANDLING ANY FRUITS, OR VEGETABLES; SUCH KIWI, BANANAS, STONE FRUITS, OR CHESTNUTSNO LATEX RISK : DO YOU HAVE A PREVIOUS PERSONAL HISTORY OF MORE THAN NINE SURGERIES, SPINA BIFIDA, OR REPEATED CATHERIZATIONS? NO LATEX RISK : ARE YOU FREQUENTLY EXPOSED TO LATEX PRODUCTS IN YOUR OCCUPATION?NO CAFFEINE CAFFEINE USE?NO ADVANCE DIRECTIVE ADVANCE DIRECTIVE DISCUSSED WITH PATIENT:YES HCP IS JULIET DOTSON [phone] SHINTO SHINTO UATSDIN MARITAL STATUS: DO YOU FEEL SAFE IN YOUR ENVIRONMENT? NODISABLED FROM WORK , REGULAR PORTIION CONTROOLLED, DAILY, WALKS. ALCOHOL SCREENING DID YOU HAVE A DRINK CONTAINING ALCOHOL IN THE PAST YEAR?NO POINTS0 INTERPRETATIONNEGATIVE NOT A SMOKER OR ETOH. BEAD PICKER BY PROFESSIONREVIEWED WITH PT, 10/18/18 1130 LASREVIEWED WITH PT 02/13/19 1039 BVREVIEWED WITH PATIENT 03/17/19 0911 NLJREVIEWED WITH PATIENT 04/24/19 0945 LAS. HOSPITALIZATION/MAJOR DIAGNOSTIC PROCEDURE SURGERY RELATED REVIEW OF SYSTEMS REVIEWED BY: PROVIDER: SHARLENE GARCIA . CONSTITUTIONAL: ANY CHANGE IN YOUR MEDICAL CONDITION? NO . CHILLS NO . FEVER NO . INFECTION: DO YOU HAVE NEW INFECTIONS? NO . DO YOU HAVE HISTORY OF MRSA? NO . MUSCULOSKELETAL: ANY NEW PATTERNS OF PAIN OR NUMBNESS? YES, PAIN IS WORSE . GASTROENTEROLOGY: ANY NEW CHANGE IN BOWEL CONTROL? NO . GENITOURINARY: ANY NEW CHANGE IN BLADDER CONTROL? NO . IS THERE A CHANCE YOU COULD BE ? NO . HEMATOLOGY/LYMPH: DO YOU TAKE ANY BLOOD THINNERS? (FOR EXAMPLE- COUMADIN, PLAVIX, AGGRENOX, PLATEL, PRADAXA, OR XARELTO) NO . WHEN WAS YOUR LAST DOSE? DATE: TIME: . NEUROLOGY: HAVE YOU FALLEN IN THE PAST 12 MONTHS? YES, PRIOR TO LAST VISIT . ANY NEW EXTREMITY NUMBNESS OR WEAKNESS? NO . CARDIOLOGY: DO YOU HAVE A PACEMAKER OR DEFIBRILLATOR? NO . RESPIRATORY: HAVE YOU BEEN SICK IN THE PAST WEEK? NO . FEVER NO . FLU LIKE SYMPTOMS? NO . COUGH NO . INTEGUMENTARY: DO YOU HAVE ANY RASHES OR OPEN SORES? YES, OPEN SORE TO LEFT POSTERIOR SHOULDER . ALLERGIC/IMMUNO: ARE YOU ALLERGIC TO IV DYE? NO . ANY NEW ALLERGIES? NO . PSYCHIATRIC: DO YOU HAVE THOUGHTS OF HURTING YOURSELF OR SOMEONE ELSE? NO . ARE YOU ABUSED, NEGLECTED, OR IN AN UNSAFE ENVIRONMENT? NO . ENDOCRINOLOGY: ARE YOU DIABETIC? NO . OTHER: DO YOU NEED ANY PRESCRIPTIONS? YES, TYLENOL W/ CODEINE . IF YES, PLEASE LIST: ____ . ANY NEW PROBLEMS WITH YOUR MEDICATIONS? NO . WHEN DID YOU LAST EAT? ____ . WHEN DID YOU LAST DRINK? ____ . WHAT DID YOU LAST DRINK? ____ . NAME OF PERSON DRIVING YOU HOME? ____ . DO YOU HAVE ANY OTHER QUESTIONS OR CONCERNS NO . VITAL SIGNS WT 312.8 LBS, HT 69 IN, BMI 46.19 INDEX, BP 154/84 MM HG, HR 70 /MIN, RR 18 /MIN, TEMP 97.0 F, OXYGEN SAT % 97%, NA INITIALS SC 09:36, REVIEWED BY: EM. EXAMINATION GENERAL EXAMINATION: GENERALNO ACUTE DISTRESS, WELL NOURISHED AND HYDRATED. PSYCHAPPROPRIATE MOOD AND AFFECT . NECK:POINT TENDER C4-C5 C5-C6 SURROUNDING SKIN SHOWS NO ERYTHEMA, ECCHYMOSIS, INCREASED WARMTH, AND/OR SKIN ERUPTIONS NOTED. PATIENT DOES EXPERIENCE INCREASED CERVICAL PAIN WITH LIFTING HIS ARMS AGAINST RESISTANCE. . LUNGS:CLEAR TO AUSCULTATION BILATERALLY, NO WHEEZES, RHONCHI, RALES. HEART:NO MURMURS, REGULAR RATE AND RHYTHM. ASSESSMENTS SPONDYLOSIS OF CERVICAL REGION WITHOUT MYELOPATHY OR RADICULOPATHY - M47.812 (PRIMARY) TREATMENT SPONDYLOSIS OF CERVICAL REGION WITHOUT MYELOPATHY OR RADICULOPATHY REFILL TYLENOL WITH CODEINE #3 TABLET, 300-30 MG, 1 TABLET NEEDED, ORALLY, TID NEEDED FOR PAIN MDD 3, 30 DAYS, 50 NOTES: BILATERAL THERAPEUTIC CERVICAL FACET BLOCK C3 C4 C4 C5 C5 C6. CLINICAL NOTES: 59-YEAR-OLD MALE IN FOR CHRONIC PAIN FOLLOW-UP. GIVEN PRESENTING SYMPTOMS AND RESULTS OF PHYSICAL EXAMINATION RECOMMENDED BILATERAL THERAPEUTIC CERVICAL FACET BLOCK C3 C4 C4 C5 C5 C6 WITH POSTPROCEDURAL FOLLOW-UP. PATIENT HAS EXPRESSED UNDERSTANDING OF AND WAS IN AGREEMENT WITH TREATMENT PLAN. GIVEN TIME TO ASK QUESTIONS AND EXPRESS CONCERNS., ISTOP REGISTRY REVIEWED AND DEMONSTRATES COMPLLIANCE. (REF # [id number] ) BRINGS IN MEDICATIONS WHICH IS APPROPRIATE FOR WHAT WAS DISPENSED. RECENT URINE TOXICOLOGY REVIEWED. NO UNAUTHORIZED MEDICATIONS. NO ILLICIT SUBSTANCES AND PRESCRIBED MEDICATIONS WERE PRESENT. PROCEDURE CODES FA211 ESTABILISHED PATIENT [facility] CHARGE DISPOSITION & COMMUNICATION FOLLOW UP POSTPROCEDURE (REASON: BILATERAL THERAPEUTIC CERVICAL FACET BLOCK C3 C4 C4 C5 C5 C6) ELECTRONICALLY SIGNED BY CINDY GAMEZ ON 05/19/2019 AT 08:36 AM EDT DISCLAIMER : THIS IS A VISIT SUMMARY EXTRACTED FROM THE [employer] CHART. IT IS NOT A COPY OF THE [employer] PROGRESS NOTE. MTDD
== END ==
LOC: M PAIN 10:15
PROVIDERS: ATTEND Family Medicine
DX: M47.812 Spondylosis without myelopathy or radiculopathy, cervical region (principal); G89.29 Other chronic pain; E78.5 Hyperlipidemia, unspecified; K21.9 Gastro-esophageal reflux disease without esophagitis; I10 Essential (primary) hypertension; Z86.59 Personal history of other mental and behavioral disorders; Z98.84 Bariatric surgery status; Z88.8 Allergy status to other drugs, medicaments and biological substances; E66.01 Morbid (severe) obesity due to excess calories; Z68.42 Body mass index [BMI] 45.0-49.9, adult; Z79.899 Other long term (current) drug therapy

== ENCOUNTER → 2019-06-10 | Outpatient (REF) | payer BC ==
[~2019-06-10] MED LIST changes: +AZIT500T5 PO; +FLOM0.4C39 PO
== END ==
LOC: M LAB REF 12:06
PROVIDERS: ATTEND Physician Assistant Medical
DX: R19.7 Diarrhea, unspecified (principal)

== ENCOUNTER 2019-06-14 23:25 | Emergency (ER) | payer BC ==
[~2019-06-14] VITALS: Ht 177.8 cm; Wt 134.1 kg
[~2019-06-14 23:25] MED LIST changes: -AZIT500T5 PO; -FLOM0.4C39 PO
[2019-06-14] MEDS ORDERED: AZIT500T5 PO (23:30)
[2019-06-15] MEDS ORDERED: TAMSULOSIN 0.4 MG CAP PO ONE (00:30)
[2019-06-15] MEDS ORDERED: NS 1,000 ML IV ONE ×2 (00:30→01:00)
[2019-06-15] MEDS ORDERED: MORPHINE 2 MG/ML 1ML VIAL (J2270) IV ONE (00:30)
[2019-06-15 00:39] LABS: BASO # 0.1 10^3/uL (0.0-0.2); BASO % 0.9 % (0.0-1.0); EOS # 0.3 10^3/uL (0.0-0.5); EOS % 2.8 % (0.0-3.0); HEMOGLOBIN 13.4 g/dl (13.5-17.5); LYMPH # 3.9 10^3/uL (1.5-5.0); LYMPH % 40.5 % (24.0-44.0); MEAN CORPUSCULAR HEMOGLOBIN 29.6 pg (27.0-33.0); MEAN CORPUSCULAR HGB CONC 31.2 g/dl (32.0-36.5); MEAN CORPUSCULAR VOLUME 95.1 fl (80.0-96.0); MONO # 0.6 10^3/uL (0.0-0.8); MONO % 6.3 % (0.0-5.0); NEUTROPHILS # 4.5 10^3/uL (1.5-8.5); NEUTROPHILS % 46.8 % (36.0-66.0); PLATELET COUNT, AUTOMATED 462 10^3/uL (150-450); RED BLOOD COUNT 4.52 10^6/uL (4.30-6.10); WHITE BLOOD COUNT 9.7 10^3/uL (4.0-10.0)
[2019-06-15 00:45] LABS: ALBUMIN 3.3 GM/DL (3.2-5.2); ALT/SGPT 35 U/L (12-78); BILIRUBIN,DIRECT < 0.1 MG/DL (0.0-0.2); BILIRUBIN,TOTAL 0.2 MG/DL (0.2-1.0); BLOOD UREA NITROGEN 13 MG/DL (7-18); CALCIUM LEVEL 8.6 MG/DL (8.5-10.1); CARBON DIOXIDE LEVEL 28 MEQ/L (21-32); CHLORIDE LEVEL 110 MEQ/L (98-107); CREATININE FOR GFR 1.01 MG/DL (0.70-1.30); GLOMERULAR FILTRATION RATE > 60.0 (>56); GLUCOSE, FASTING 87 MG/DL (70-100); LIPASE 81 U/L (73-393); POTASSIUM SERUM 3.3 MEQ/L (3.5-5.1); SODIUM LEVEL 145 MEQ/L (136-145)
--- NOTE | 2019-06-15 00:48 | REPVR ---
PROCEDURE INFORMATION: Exam: CT Abdomen And Pelvis Without Contrast Exam date and time: 06/15/2019 12:28 AM Age: 59 years old Clinical history: Abdominal pain; Localized; Left; Additional info: L colic TECHNIQUE: Imaging protocol: Computed tomography of the abdomen and pelvis without contrast. Radiation optimization: All CT scans at this facility use at least one of these dose optimization techniques: automated exposure control; mA and/or kV adjustment per patient size (includes targeted exams where dose is matched to clinical indication); or iterative reconstruction. COMPARISON: No relevant prior studies available. FINDINGS: Limitations: Study is limited by the absence of contrast. Liver: Normal. No mass. Gallbladder and bile ducts: Cholecystectomy. Pancreas: Normal. No ductal dilation. Spleen: Normal. No splenomegaly. Adrenals: Normal. No mass. Kidneys and ureters: Fragmented appearing 6 mm left vesicoureteral junction calculus causes mild to moderate left renal collecting system dilatation/hydronephrosis. 1.6 cm right renal pelvic nonobstructing calculus. 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 Appendix: No evidence of appendicitis. Intraperitoneal space: Minimal mesenteric stranding. Vasculature: Unremarkable. No abdominal aortic aneurysm. Lymph nodes: Mild mesentery with tiny lymph nodes and pronounced mesenteric fat suggesting mesenteric panniculitis. Bladder: Unremarkable as visualized. Reproductive: Unremarkable as visualized. Bones/joints: Moderate lumbar spondylosis. Soft tissues: Bilateral fat protruding inguinal hernia. IMPRESSION: 1. Fragmented appearing 6 mm left vesicoureteral junction calculus causes mild to moderate left renal collecting system dilatation/hydronephrosis. 2. Cholecystectomy. 1.6 cm right renal pelvic nonobstructing calculus. 3. Mild mesentery with tiny lymph nodes and pronounced mesenteric fat suggesting mesenteric panniculitis. Electronically signed by: Lucas Beasley On 06/15/2019 00:48:11 AM
[2019-06-15] MEDS ORDERED: KETOROLAC 30 MG/ML VIAL (J1885) IV ONE (01:00)
[2019-06-15 01:12] VITALS: BP 137/78
[2019-06-15] MEDS ORDERED: FLOM0.4C39 PO (03:09)
== END 2019-06-15 03:28 | disposition home or self-care (01) ==
LOC: M ED 23:25
DX: N20.1 Calculus of ureter (principal); Z87.442 Personal history of urinary calculi; G89.29 Other chronic pain; F32.9 Major depressive disorder, single episode, unspecified; J30.2 Other seasonal allergic rhinitis; Z79.899 Other long term (current) drug therapy; Z88.8 Allergy status to other drugs, medicaments and biological substances
CPT/HCPCS: 74176; 80048; 80076; 83690; 85025; 96361; 96374; 96375; 99284; J1885; J2270

== ENCOUNTER → 2019-06-23 | Outpatient (REF) | payer BC ==
[~2019-06-23] MED LIST changes: +AZIT500T5 PO; +FLOM0.4C39 PO
== END ==
LOC: M SMT 17:28
PROVIDERS: ATTEND Nurse Practitioner Women's Health
DX: N20.1 Calculus of ureter (principal)

== ENCOUNTER → 2019-07-07 | Outpatient (CLI) | payer BC ==
[~2019-07-07] MED LIST changes: +BUPIVACAINE HCL 0.25% 30 ML VIAL As Ordered ONE; +ISOVUE-M 300 61% 15ML VIAL (Q9967) As Ordered ONE; +LIDOCAINE 1% SDV INJ 30 ML VIAL As Ordered ONE; +TRIAMCINOLONE ACETONIDE SUSP 40 MG/ML VIAL (J3301) As Ordered ONE; +diazePAM 5 MG TAB As Ordered ONE; +oxyCODONE 5MG TAB As Ordered ONE
--- NOTE | 2019-07-07 14:06 | REP ---
Partial cervical spine series: Single view. History: Intra procedural imaging. Therapeutic cervical injection for pain. 23 seconds of fluoroscopy time is reported. Findings: A single last image hold fluoroscopically obtained spot radiograph of the cervical spine documents various needle positions and contrast injections associated with injection procedure. Electronically Signed by Layton Emanuel MD 07/07/2019 01:58 P
--- NOTE | 2019-07-09 02:23 | ECWPNPC ---
PATIENT NAME: JOE DOTSON : 1960 GENDER: MALE VISIT DATE: 07/07/2019 DISCHARGE DATE: 07/07/19 1411 VISIT LOCKED DATE TIME: PHYSICIAN: BARBRA HART MD RESOURCE: BARBRA HART MD REASON FOR APPOINTMENT 1. BILATERAL THERAPEUTIC CERVICAL FACET BLOCK C3 C4 C4 C5 C5 C6 HISTORY OF PRESENT ILLNESS HISTORY OF PRESENT ILLNESS: PAIN THE PATIENT DESCRIBES THE PAIN... FALL RISK SCREENING: SCREENING :NO FALLS REPORTED IN THE LAST YEAR CURRENT MEDICATIONS TAKING VERAPAMIL HCL 300 MG CAPSULE EXTENDED RELEASE 24 HOUR 1 CAPSULE AT BEDTIME ORALLY ONCE A DAY, NOTES: 07/06/19 TAKING FLEXERIL 10 MG TABLET 1 TABLET ORALLY TID, NOTES: 07/07/19 AM TAKING XYZAL 5 MG TABLET 1 TABLET IN THE EVENING ORALLY ONCE A DAY, NOTES: 07/07/19 AM TAKING EFFEXOR XR 150 MG CAPSULE EXTENDED RELEASE 24 HOUR 2 CAPSULE WITH FOOD ORALLY ONCE A DAY, NOTES: 07/07/19 AM TAKING EFFEXOR XR 75 MG CAPSULE EXTENDED RELEASE 24 HOUR 1 CAPSULE WITH FOOD ORALLY ONCE A DAY, NOTES: 07/07/19 AM TAKING NEXIUM 40 MG CAPSULE DELAYED RELEASE 1 CAPSULE ORALLY TWICE DAILY, NOTES: 07/07/19 AM TAKING CENTRUM ADULTS - TABLET ORALLY DAILY, NOTES: 07/07/19 AM TAKING VITAMIN B12 500 MCG TABLET 1 TABLET ORALLY ONCE A DAY, NOTES: 07/07/19 AM TAKING LISINOPRIL 5 MG TABLET 1 TABLET ORALLY ONCE A DAY, NOTES: 07/06/19 TAKING KLONOPIN 0.5 MG TABLET 1 TABLET ORALLY FOUR TIMES PER DAY, NOTES: 07/07/19 AM TAKING NEURONTIN 300 MG CAPSULE 1 CAPSULE ORALLY TWICE DAILY, NOTES: 07/07/19 AM TAKING PRAZOSIN HCL 2 MG CAPSULE 2 CAPSULE AT BEDTIME ORALLY ONCE A DAY, NOTES: 07/06/19 TAKING TRAZODONE HCL 50 MG TABLET 2 TABLETS AT BEDTIME ORALLY ONCE A DAY, NOTES: 07/06/19 TAKING IRON 325 (65 FE) MG TABLET 1 TABLET ORALLY TWICE DAILY, NOTES: 07/07/19 AM TAKING ABILIFY 1 TABLET ORALLY AT BEDTIME, NOTES: 07/06/19 TAKING CALCIUM 600 MG TABLET 1 TABLET WITH MEALS ORALLY TWICE A DAY, NOTES: 07/07/19 AM TAKING TYLENOL WITH CODEINE #3 300-30 MG TABLET 1 TABLET NEEDED ORALLY EVERY 6 HRS NOT-TAKING CENTRUM - TABLET DIRECTED ORALLY , NOTES: DUPLICATEDUPLICATE NOT-TAKING FLOMAX 0.4 MG CAPSULE 1 CAPSULE ORALLY ONCE A DAY, NOTES: DUPLICATE DISCONTINUED FLOMAX 0.4 MG CAPSULE 1 CAPSULE ORALLY ONCE A DAY DISCONTINUED KETOROLAC TROMETHAMINE 10 MG TABLET 1 TABLET WITH FOOD OR MILK NEEDED ORALLY EVERY 6 HRS DISCONTINUED PERCOCET 5-325 MG TABLET 1 TABLET NEEDED ORALLY EVERY 6 HRS, MDD 4 MEDICATION LIST REVIEWED AND RECONCILED WITH THE PATIENT PAST MEDICAL HISTORY HYPERLIPIDEMIA ESOPHAGEAL REFLUX KIDNEY STONES HYPERTENSION PTSD BARRETTS ESOPHAGUS CHRONIC KIDNEY DISEASE SYNDROME BILATERRAL CARPAL TUNNEL CHRONIC NECK PAIN ALLERGIES ZANAFLEX: BRADYCARDIA - SIDE EFFECTS SURGICAL HISTORY HERNIA REPAIR CHOLECYSTECTOMY TUMOR RESECTED LEFT SHOULDER LITHOTRIPSY GASTIC BYPASS 2013 BILATERAL CARPAL TUNNEL LEFT MOST RECENT [id number] FAMILY HISTORY FATHER: ALIVE MOTHER: , DIAGNOSED WITH OTHER MALIGNANT NEOPLASM OF UNSPECIFIED SITE SIBLINGS: OTHER MALIGNANT NEOPLASM OF UNSPECIFIED SITE MATERNAL GRAND MOTHER: DIABETES 2 SISTER(S) . 1 SON(S) , 1 DAUGHTER(S) - HEALTHY. NO PROSTATE,KIDNEY OR BLADDER CANCER MOTHER WITH BREAST CANCER SISTER WITH UTERINE CANCER GRANDFATHER UNKNOWN CANCER. SOCIAL HISTORY GENERAL: TOBACCO USE ARE YOU A:NONSMOKER IMMUNIZATION PROGRAM DO YOU FEEL SAFE IN YOUR ENVIRONMENT? NODISABLED FROM WORK , REGULAR PORTIION CONTROOLLED, DAILY, WALKS, , SPOUSE, CHILDREN. OTHERS AT HOME: DO YOU FEEL SAFE IN YOUR ENVIRONMENT? NODISABLED FROM WORK , REGULAR PORTIION CONTROOLLED, DAILY, WALKS, . HOUSING: PFS REFERRAL NEEDED? NO, CLERGY REFERRAL NEEDED? NO, PUBLIC HEALTH REFERRAL NEEDED? NO, WAS THE PROVIDER NOTIFIED OF ANY PERTINENT INFO? NO, HAS THE PATIENT BEEN EDUCATED REGARDING HIS/HER PLAN OF CARE? YES, HAS THE PATIENT BEEN EDUCATED REGARDING PAIN, THE RISK FOR PAIN, THE IMPORTANCE OF EFFECTIVE PAIN MANAGEMENT, AND THE PAIN ASSESSMENT PROCESS? YES. EDUCATION LEVEL OF EDUCATION:NOT ANSWERED [employer]OL DIET: REGULAR. LANGUAGE LANGUAGES SPOKEN:TRISTANIAN NEW PATIENT PAIN DIARY MONOGAMOUS? YES. RECREATIONAL DRUG USE DRUG USE?NO EXERCISE: NONE. LEARNING BARRIERS / SPECIAL NEEDS SPECIAL DEVICES?YES CPAP PAIN CLINIC PFS, CLERGY, PUBLIC HEALTH REFERRALS PFS REFERRAL NEEDED?NO CLERGY REFERRAL NEEDED?NO PUBLIC HEALTH REFERRAL NEEDED?NO WAS THE PROVIDER NOTIFIED OF ANY PERTINENT INFO?YES HAS THE PATIENT BEEN EDUCATED REGARDING HIS/HER PLAN OF CARE?YES HAS THE PATIENT BEEN EDUCATED REGARDING PAIN, THE RISK FOR PAIN, THE IMPORTANCE OF EFFECTIVE PAIN MANAGEMENT, AND THE PAIN ASSESSMENT PROCESS?YES LATEX QUESTIONNAIRE LATEX ALLERGY : HAVE YOU EVER DEVELOPED ANY TYPE OF REACTION AFTER HANDLING LATEX PRODUCTS SUCH RUBBER GLOVES, CONDOMS, DIAPHRAGMS, BALLOONS, SOCKS, OR UNDERWEAR?NO LATEX ALLERGY : HAVE YOU EVER DEVELOPED ANY TYPE OF REACTION DURING OR AFTER DENTAL APPOINTMENT, VAGINAL/RECTAL EXAMINATION, SURGICAL PROCEDURE, OR ANY OTHER EXPOSURE?NO LATEX RISK : HAVE YOU EVER HAD ANY DIFFICULTY BREATHING OR HIVES AFTER EATING OR HANDLING ANY FRUITS, OR VEGETABLES; SUCH KIWI, BANANAS, STONE FRUITS, OR CHESTNUTSNO LATEX RISK : DO YOU HAVE A PREVIOUS PERSONAL HISTORY OF MORE THAN NINE SURGERIES, SPINA BIFIDA, OR REPEATED CATHERIZATIONS? NO LATEX RISK : ARE YOU FREQUENTLY EXPOSED TO LATEX PRODUCTS IN YOUR OCCUPATION?NO DATE ASKED : 06/30/2019 CAFFEINE CAFFEINE USE?NO ADVANCE DIRECTIVE ADVANCE DIRECTIVE DISCUSSED WITH PATIENT:YES HCP IS JULIET DOTSON [phone] SABIANISM SABIANISM SPIRITISM MARITAL STATUS: DO YOU FEEL SAFE IN YOUR ENVIRONMENT? NODISABLED FROM WORK , REGULAR PORTIION CONTROOLLED, DAILY, WALKS. ALCOHOL SCREENING DID YOU HAVE A DRINK CONTAINING ALCOHOL IN THE PAST YEAR?NO POINTS0 INTERPRETATIONNEGATIVE PRE PROCEDURE PHONE CALL COMPLETE 06/30/19 1030 BVNOT A SMOKER OR ETOH. ABE TEACHER BY PROFESSIONREVIEWED WITH PT, 10/18/18 1130 LASREVIEWED WITH PT 02/13/19 1039 BVREVIEWED WITH PATIENT 03/17/19 0911 NLJREVIEWED WITH PATIENT 04/24/19 0945 LAS. HOSPITALIZATION/MAJOR DIAGNOSTIC PROCEDURE SURGERY RELATED REVIEW OF SYSTEMS REVIEWED BY: PROVIDER: . CONSTITUTIONAL: ANY CHANGE IN YOUR MEDICAL CONDITION? NO . CHILLS NO . FEVER NO . INFECTION: DO YOU HAVE NEW INFECTIONS? NO . DO YOU HAVE HISTORY OF MRSA? NO . MUSCULOSKELETAL: ANY NEW PATTERNS OF PAIN OR NUMBNESS? YES, PAIN WORSENS INJECTIONS WEAR OFF . GASTROENTEROLOGY: ANY NEW CHANGE IN BOWEL CONTROL? NO . GENITOURINARY: ANY NEW CHANGE IN BLADDER CONTROL? NO . IS THERE A CHANCE YOU COULD BE ? NO . HEMATOLOGY/LYMPH: DO YOU TAKE ANY BLOOD THINNERS? (FOR EXAMPLE- COUMADIN, PLAVIX, AGGRENOX, PLATEL, PRADAXA, OR XARELTO) NO . WHEN WAS YOUR LAST DOSE? DATE: TIME: . NEUROLOGY: HAVE YOU FALLEN IN THE PAST 12 MONTHS? YES, FELL THIS MONTH FROM KNEE WEAKNESS, PT DENIES INJURIES . ANY NEW EXTREMITY NUMBNESS OR WEAKNESS? NO . CARDIOLOGY: DO YOU HAVE A PACEMAKER OR DEFIBRILLATOR? NO . RESPIRATORY: HAVE YOU BEEN SICK IN THE PAST WEEK? NO . FEVER NO . FLU LIKE SYMPTOMS? NO . COUGH NO . INTEGUMENTARY: DO YOU HAVE ANY RASHES OR OPEN SORES? NO . ALLERGIC/IMMUNO: ARE YOU ALLERGIC TO IV DYE? NO . ANY NEW ALLERGIES? NO . PSYCHIATRIC: DO YOU HAVE THOUGHTS OF HURTING YOURSELF OR SOMEONE ELSE? NO . ARE YOU ABUSED, NEGLECTED, OR IN AN UNSAFE ENVIRONMENT? NO . ENDOCRINOLOGY: ARE YOU DIABETIC? NO . OTHER: DO YOU NEED ANY PRESCRIPTIONS? NO . IF YES, PLEASE LIST: ____ . ANY NEW PROBLEMS WITH YOUR MEDICATIONS? NO . WHEN DID YOU LAST EAT? 07/06/19 1800 . WHEN DID YOU LAST DRINK? 07/07/19 0500 . WHAT DID YOU LAST DRINK? GATORADE . NAME OF PERSON DRIVING YOU HOME? WHITLEY . DO YOU HAVE ANY OTHER QUESTIONS OR CONCERNS NO . VITAL SIGNS WT 317.2 LBS, HT 69 IN, BMI 46.84 INDEX, BP 135/65 MM HG, HR 78 /MIN, RR 18 /MIN, TEMP 96.6 F, OXYGEN SAT % 95%, NA INITIALS SC 10:49, REVIEWED BY: EM. ASSESSMENTS SPONDYLOSIS OF CERVICAL REGION WITHOUT MYELOPATHY OR RADICULOPATHY - M47.812 (PRIMARY) TREATMENT SPONDYLOSIS OF CERVICAL REGION WITHOUT MYELOPATHY OR RADICULOPATHY [facility] FACET BLOCK (PAIN)[id number] PROCEDURES PN CERVICAL FACET BLOCK LOW BILATERAL CERVICAL PRE PROCEDURE DIAGNOSIS CERVICAL SPONDYLOSIS POST PROCEDURE DIAGNOSIS CERVICAL SPONDYLOSIS PROCEDURE BILATERAL C3-C4, C4-C5, AND C5-C6 CERVICAL THERAPEUTIC FACET BLOCK SURGEON DR. BARBRA HART BILINGUAL MIDDLE SCHOOL TEACHER NONE ANESTHESIA LOCAL PRE PROCEDURE NOTE THE PATIENT HAS HISTORY OF CHRONIC CERVICAL PAIN. I EVALUATED THE PATIENT AND REVIEWED THE CHART. I WENT OVER THE RISKS, ALTERNATIVES, AND BENEFITS ASSOCIATED WITH THIS PROCEDURE. THE PATIENT WOULD LIKE TO PROCEED AND GIVES CONSENT TO PERFORM THE PROCEDURE. THE PATIENT DENIES UNEXPLAINABLE WEIGHT LOSS, FEVER, CHILLS, OR NEW CHANGES IN URINARY OR BOWEL CONTROL. DESCRIPTION OF PROCEDURE THE PATIENT WAS BROUGHT TO THE PROCEDURE ROOM AND PLACED IN THE PRONE POSITION. THE CERVICOTHORACIC AREA WAS CLEANED WITH CHLORAPREP SOLUTION AND DRAPED ASEPTICALLY. THE PROCEDURE WAS DONE UNDER STERILE CONDITIONS. I CHECKED LATERALITY AND THE LEVEL WHERE THE PROCEDURE WAS GOING TO BE PERFORMED WITH THE PATIENT AND THE SUPPORTING STAFF AT THE MOMENT OF THE TIME OUT IN THE PROCEDURE ROOM. UNDER FLUOROSCOPIC GUIDANCE, TARGET POINT WAS SELECTED AT THE RIGHT AND LEFT C3-C4, RIGHT AND LEFT C4-C5, AND RIGHT AND LEFT C5-C6 CERVICAL FACET JOINTS. TARGET POINTS WERE SELECTED AFTER LATERAL ROTATION AND TILT OF THE MAGNIFIER OF THE C-ARM. LIDOCAINE 0.5% WAS USED TO NUMB THE SKIN AND THE SUBCUTANEOUS TISSUE BELOW IT. SPINAL NEEDLES, 22-GAUGE, WERE ADVANCED UNDER FLUOROSCOPIC GUIDANCE AND FOLLOWING PATIENT FEEDBACK UNTIL THE TARGETS WERE TOUCHED. THE POSITION OF THE NEEDLES WAS VERIFIED WITH AP AND LATERAL VIEWS. AFTER PROPER POSITION OF THE NEEDLES WAS ACHIEVED, ISOVUE M DYE 30, 0.1 ML WAS INJECTED SHOWING SPREAD OF THE DYE. THEN A SOLUTION OF 0.9 ML OF BUPIVACAINE 0.125% AND KENALOG 10 MG WAS INJECTED AT EACH SITE. THERE WAS NO EVIDENCE OF BLOOD, PARESTHESIA OR CEREBROSPINAL FLUID DURING THE PROCEDURE. THE PATIENT WAS SENT TO THE RECOVERY ROOM. THE PATIENT WAS MOVING THE EXTREMITIES AND DOING WELL. THERE WAS NO COMPLICATION DURING THE PROCEDURE. FLUOROSCOPY TIME WAS 23 SECONDS POST PROCEDURE NOTE I AM LOOKING FOR LONG LASTING PAIN RELIEF WITH THIS INTERVENTION. THE PATIENT WILL BE SEEN IN A FOLLOW UP IN THE NEXT FEW WEEKS. INSTRUCTIONS WERE GIVEN, QUESTIONS WERE ANSWERED, AND THE PATIENT EXPRESSED UNDERSTANDING AND AGREES WITH THE PLAN. I, CRISTINA CAVANAUGH, DOCUMENTED THE ABOVE INFORMATION ACTING A SCRIBE FOR DR. HART. I HAVE REVIEWED THE ABOVE DOCUMENT, WRITTEN BY CRISTINA CAVANAUGH SCRIBClotilde AND I VERIFY THAT IT IS ACCURATE. PROCEDURE CODES 15073 INJ PARAVERT F JNT C/T 1 LEV, MODIFIERS: 50 [id number] INJ PARAVERT F JNT C/T 2 LEV, MODIFIERS: 50 [id number] INJ PARAVERT F JNT C/T 3 LEV, MODIFIERS: 50 [id number] RADXPS IN END [id number] PXD DISPOSITION & COMMUNICATION FOLLOW UP 3 WEEKS ELECTRONICALLY SIGNED BY BARBRA HART MD, MD ON 07/08/2019 AT 05:22 PM EST DISCLAIMER : THIS IS A VISIT SUMMARY EXTRACTED FROM THE [employer] CHART. IT IS NOT A COPY OF THE [employer] PROGRESS NOTE. PHIL
== END ==
LOC: M PAIN 11:00
PROVIDERS: ATTEND Anesthesiology
DX: M47.812 Spondylosis without myelopathy or radiculopathy, cervical region (principal); E78.5 Hyperlipidemia, unspecified; K21.9 Gastro-esophageal reflux disease without esophagitis; I10 Essential (primary) hypertension; Z86.59 Personal history of other mental and behavioral disorders; Z98.84 Bariatric surgery status; Z88.8 Allergy status to other drugs, medicaments and biological substances; E66.01 Morbid (severe) obesity due to excess calories; Z68.42 Body mass index [BMI] 45.0-49.9, adult; Z79.899 Other long term (current) drug therapy
CPT/HCPCS: 64490; 64491; 64492; J3301; Q9967

== ENCOUNTER → 2019-07-09 | Outpatient (CLI) | payer BC ==
[~2019-07-09] MED LIST changes: -BUPIVACAINE HCL 0.25% 30 ML VIAL As Ordered ONE; -ISOVUE-M 300 61% 15ML VIAL (Q9967) As Ordered ONE; -LIDOCAINE 1% SDV INJ 30 ML VIAL As Ordered ONE; -TRIAMCINOLONE ACETONIDE SUSP 40 MG/ML VIAL (J3301) As Ordered ONE; -diazePAM 5 MG TAB As Ordered ONE; -oxyCODONE 5MG TAB As Ordered ONE
--- NOTE | 2019-07-09 08:48 | REP ---
Two-view chest: 07/09/2019. Indication: Preoperative assessment. Comparison: 10/26/2010. Findings: The lungs are clear. There is no pleural effusion or pneumothorax. The cardiomediastinal silhouette is unremarkable. Impression: No acute cardiopulmonary process. Electronically Signed by Kyrie Garnica DO 07/09/2019 08:39 A
[2019-07-09 12:47] LABS: HEMATOCRIT 48.2 % (42.0-52.0); HEMOGLOBIN 14.6 g/dl (13.5-17.5); MEAN CORPUSCULAR HGB CONC 30.3 g/dl (32.0-36.5); MEAN CORPUSCULAR VOLUME 95.8 fl (80.0-96.0); PLATELET COUNT, AUTOMATED 496 10^3/uL (150-450); RED BLOOD COUNT 5.03 10^6/uL (4.30-6.10); WHITE BLOOD COUNT 9.7 10^3/uL (4.0-10.0)
[2019-07-09 12:57] LABS: INR 1.03; PROTHROMBIN TIME 13.2 SECONDS (11.8-14.0)
[2019-07-09 12:58] LABS: PARTIAL THROMBOPLASTIN TIME 36.1 SECONDS (25.0-38.4)
[2019-07-09 13:15] LABS: BLOOD UREA NITROGEN 18 MG/DL (7-18); CALCIUM LEVEL 9.1 MG/DL (8.5-10.1); CARBON DIOXIDE LEVEL 30 MEQ/L (21-32); CHLORIDE LEVEL 108 MEQ/L (98-107); CREATININE FOR GFR 0.82 MG/DL (0.70-1.30); GLOMERULAR FILTRATION RATE > 60.0 (>56); GLUCOSE, FASTING 60 MG/DL (70-100); POTASSIUM SERUM 4.5 MEQ/L (3.5-5.1); SODIUM LEVEL 142 MEQ/L (136-145)
== END ==
LOC: M ADAMS 08:15
PROVIDERS: ATTEND Nurse Practitioner Women's Health
DX: Z01.818 Encounter for other preprocedural examination (principal); N20.0 Calculus of kidney

== ENCOUNTER → 2019-07-21 | Outpatient (REF) | payer BC ==
[~2019-07-21] MED LIST changes: +ABIL1TAB13 PO; +CALC600T60 PO; +CENT1TAB2 PO; +CYCL10TA PO; +EFFE75CA2 PO; +IRON65TA2 PO; +KETO10TAB PO; +KLON0.5T PO; +LEVOTAB10 PO; +LISI-542 PO; -MINI1CAP; +MINI1CAP PO; +NEXI40CA PO; +PERC5TAB12 PO; +TRAZ-252 PO; +VERA300C6 PO; +VITA500T40 PO
[2019-07-21 12:40] LABS: APPEARANCE, URINE HAZY (CLEAR); BACTERIA, URINE AUTO NEGATIVE (NEGATIVE); BILIRUBIN, URINE AUTO NEGATIVE (NEGATIVE); BLOOD, URINE BLOOD NEGATIVE (NEGATIVE); COLOR, URINE YELLOW (YELLOW); GLUCOSE, URINE (UA) AUTO NEGATIVE (NEGATIVE); KETONE, URINE AUTO NEGATIVE (NEGATIVE); LEUKOCYTE ESTERASE, URINE AUTO NEGATIVE (NEGATIVE); MUCUS, URINE SMALL (NEGATIVE); NITRITE, URINE AUTO NEGATIVE (NEGATIVE); PROTEIN, URINE AUTO 1+ mg/dL (NEGATIVE); RBC, URINE AUTO 0 /HPF (0-3); SPECIFIC GRAVITY URINE AUTO 1.024 (1.002-1.035); SQUAMOUS EPITHELIAL CELL UR AU 0 /HPF (0-6); UROBILINOGEN, URINE AUTO 0.2 mg/dL (0.0-2.0); WBC, URINE AUTO 3 /HPF (0-3)
== END ==
LOC: M SMT 10:09
PROVIDERS: ATTEND Nurse Practitioner Women's Health
DX: Z01.818 Encounter for other preprocedural examination (principal); N20.0 Calculus of kidney

== ENCOUNTER 2019-07-28 08:29 | Day surgery (SDC) | payer BC ==
[~2019-07-28] VITALS: Ht 175.3 cm; Wt 143.1 kg
[~2019-07-28 08:29] MED LIST changes: +LR 1,000 ML IV ONE; +ceFAZolin SOD 1 GM in D5W MINI-BAG PLUS 50 ML IV ONE; +ceFAZolin SOD 2 GM in IV 1 EA IV ONE
[2019-07-28] MEDS ORDERED: MIDAZOLAM INJ 2 MG/2 ML VIAL (J2250) As Ordered ONE (13:51)
[2019-07-28] MEDS ORDERED: fentaNYL 100 MCG/2 ML INJECTION (J3010) As Ordered ONE (13:51)
[2019-07-28] MEDS ORDERED: CONRAY-60 60% 50ML VIAL (Q9961) As Ordered ONE (14:12)
[2019-07-28] MEDS ORDERED: PROPOFOL 200 MG/20 ML VIAL As Ordered ONE ×2 (14:40→14:49)
[2019-07-28] MEDS ORDERED: ROCURONIUM BROMIDE 50 MG/5 ML VIAL As Ordered ONE ×2 (14:40→14:49)
[2019-07-28] MEDS ORDERED: SUGAMMADEX SODIUM 500 MG/5 ML VIAL (BRIDION) As Ordered ONE (14:48)
[2019-07-28] MEDS ORDERED: dexameTHASONE 4 MG/ML 1ML VIAL (J1100) As Ordered ONE (14:49)
[2019-07-28] MEDS ORDERED: ONDANSETRON 4MG/2ML VIAL (J2405) As Ordered ONE (14:49)
--- NOTE | 2019-07-28 15:56 | REP ---
Retrograde pyelogram: Three views. History: Cystoscopy. Right ureteroscopy. Stent placement. 12 seconds of fluoroscopy time is reported. Findings: A sequence of three last image hold fluoroscopically obtained spot radiographs of the right abdomen document right ureteral cannulation, contrast injection, and stent placement. Electronically Signed by Layton Emanuel MD 07/28/2019 03:48 P
[2019-07-28] MEDS ORDERED: ONDANSETRON 4MG/2ML VIAL (J2405) IV PRN (16:00)
[2019-07-28] MEDS ORDERED: PERCOCET 5MG/325MG TAB PO PRN ×2 (16:00)
[2019-07-28] MEDS ORDERED: LR 1,000 ML IV SCH (16:00)
[2019-07-28 17:20] VITALS: BP 146/70
--- NOTE | 2019-07-28 20:53 | RO ---
DATE OF PROCEDURE: 07/28/2019 PREPROCEDURE DIAGNOSIS: Right kidney stone. POSTPROCEDURE DIAGNOSIS: Right kidney stone. PROCEDURE: Cystoscopy, right ureteroscopy with laser lithotripsy and basket extraction of stones, right retrograde pyelogram with intraoperative interpretation of images, right ureteral stent placement. SURGEON: Dr. Goran Juarez LADDERMAN: None. ANESTHESIA: General. OPERATIVE INDICATIONS: This is a 59-year-old male who was found to have an approximately 1.6 cm right kidney stone. He was brought to the operating room today for treatment. DESCRIPTION OF PROCEDURE: The patient was brought to the operating room and general anesthesia was induced. Prophylactic antibiotics were infused. He was then placed in the dorsal lithotomy position and prepped and draped in the usual sterile fashion. A rigid cystoscope was then inserted into the urethral meatus and advanced into the bladder. A guidewire was advanced to the right collecting system. I then advanced the ureteral access sheath up the right collecting system. I went up the access sheath with a flexible ureteroscope, and within the renal pelvis, the 1.6 cm stone was seen. The stone was then fragmented into smaller pieces using a 200 micron laser fiber. All the fragments were then removed using a basket. Of note, there was a moderate amount of bleeding inside the renal pelvis, which made visibility more difficult near the end of the procedure. It did appear that all the larger stone fragments were removed. A retrograde pyelogram was then performed, notable for moderate right hydronephrosis, no extravasation. I then withdrew the ureteroscope along with the access sheath and no additional stones were seen within the ureter. I then utilized the wire to advance a 6-Indian x 22-32 cm JJ ureteral stent into the right collecting system. The wire was removed, and there were adequate curls of the stent in the right renal pelvis and in the bladder. The bladder was emptied of all fluids, and this marked the conclusion of the procedure. The patient was then taken out of the dorsal lithotomy position, awakened from anesthesia and transported to the recovery room in stable condition. Estimated blood loss: 5 mL. Complications: None. Specimens: Kidney stone fragments. PLAN: The patient will followup in the clinic in a few weeks for stent removal. We will get a KUB prior to ensure all of the stone fragments are gone before we take his stent out. [facility]
== END 2019-07-28 17:23 | disposition home or self-care (01) ==
LOC: M SDC 08:29
PROVIDERS: ATTEND Urology
DX: N20.0 Calculus of kidney (principal); I10 Essential (primary) hypertension; E78.5 Hyperlipidemia, unspecified; K21.9 Gastro-esophageal reflux disease without esophagitis; G47.30 Sleep apnea, unspecified; K22.70 Barrett's esophagus without dysplasia; F41.9 Anxiety disorder, unspecified; F43.10 Post-traumatic stress disorder, unspecified; F32.9 Major depressive disorder, single episode, unspecified; M54.2 Cervicalgia; Z92.3 Personal history of irradiation; N32.9 Bladder disorder, unspecified; Z88.8 Allergy status to other drugs, medicaments and biological substances; Z79.899 Other long term (current) drug therapy; Z98.84 Bariatric surgery status; E66.9 Obesity, unspecified
CPT/HCPCS: 52356; 74420; 82360; 88300; C1769; C2617; J0690; J1100; J2250; J2405; J3010; Q9961

== ENCOUNTER → 2019-08-01 | Outpatient (CLI) | payer BC ==
[~2019-08-01] MED LIST changes: -LR 1,000 ML IV ONE; -ceFAZolin SOD 1 GM in D5W MINI-BAG PLUS 50 ML IV ONE; -ceFAZolin SOD 2 GM in IV 1 EA IV ONE
--- NOTE | 2019-08-05 04:09 | ECWPNPC ---
PATIENT NAME: JOE DOTSON : 1960 GENDER: MALE VISIT DATE: 08/01/2019 DISCHARGE DATE: 08/01/19 1008 VISIT LOCKED DATE TIME: PHYSICIAN: KENNEDY MILES RESOURCE: KENNEDY MILES REASON FOR APPOINTMENT 1. POST FACET HISTORY OF PRESENT ILLNESS HISTORY OF PRESENT ILLNESS: PAIN THE PATIENT DESCRIBES THE PAIN... 59-YEAR-OLD MALE IN FOR POST CERVICAL FACET BLOCK FOLLOW-UP. HE RATES HIS PAIN PREPROCEDURE AT A 7 OUT OF 10 AND POST PROCEDURE AT A 0 OUT OF 10. HE STATES THAT THE PAIN RELIEF CONTINUES TODAY. HE DOES RATE HIS PAIN CURRENTLY AT A 7 OUT OF 10 BUT FURTHER STATES THAT THIS PAIN IS IN HIS SHOULDERS. HE DESCRIBES HIS PAIN ACHING, SORE, AND TENDER. FALL RISK SCREENING: SCREENING :NO FALLS REPORTED IN THE LAST YEAR CURRENT MEDICATIONS TAKING VERAPAMIL HCL 300 MG CAPSULE EXTENDED RELEASE 24 HOUR 1 CAPSULE AT BEDTIME ORALLY ONCE A DAY TAKING FLEXERIL 10 MG TABLET 1 TABLET ORALLY TID TAKING XYZAL 5 MG TABLET 1 TABLET IN THE EVENING ORALLY ONCE A DAY TAKING EFFEXOR XR 150 MG CAPSULE EXTENDED RELEASE 24 HOUR 2 CAPSULE WITH FOOD ORALLY ONCE A DAY TAKING EFFEXOR XR 75 MG CAPSULE EXTENDED RELEASE 24 HOUR 1 CAPSULE WITH FOOD ORALLY ONCE A DAY TAKING NEXIUM 40 MG CAPSULE DELAYED RELEASE 1 CAPSULE ORALLY TWICE DAILY TAKING CENTRUM ADULTS - TABLET ORALLY DAILY TAKING VITAMIN B12 500 MCG TABLET 1 TABLET ORALLY ONCE A DAY TAKING LISINOPRIL 5 MG TABLET 1 TABLET ORALLY ONCE A DAY TAKING KLONOPIN 0.5 MG TABLET 1 TABLET ORALLY FOUR TIMES PER DAY TAKING NEURONTIN 300 MG CAPSULE 1 CAPSULE ORALLY TWICE DAILY TAKING PRAZOSIN HCL 2 MG CAPSULE 2 CAPSULE AT BEDTIME ORALLY ONCE A DAY TAKING TRAZODONE HCL 50 MG TABLET 2 TABLETS AT BEDTIME ORALLY ONCE A DAY TAKING IRON 325 (65 FE) MG TABLET 1 TABLET ORALLY TWICE DAILY TAKING ABILIFY 1 TABLET ORALLY AT BEDTIME TAKING CALCIUM 600 MG TABLET 1 TABLET WITH MEALS ORALLY TWICE A DAY TAKING TYLENOL WITH CODEINE #3 300-30 MG TABLET 1 TABLET NEEDED ORALLY EVERY 6 HRS NOT-TAKING CENTRUM - TABLET DIRECTED ORALLY , NOTES: DUPLICATEDUPLICATE NOT-TAKING FLOMAX 0.4 MG CAPSULE 1 CAPSULE ORALLY ONCE A DAY, NOTES: DUPLICATE MEDICATION LIST REVIEWED AND RECONCILED WITH THE PATIENT PAST MEDICAL HISTORY HYPERLIPIDEMIA ESOPHAGEAL REFLUX KIDNEY STONES HYPERTENSION PTSD BARRETTS ESOPHAGUS CHRONIC KIDNEY DISEASE SYNDROME BILATERRAL CARPAL TUNNEL CHRONIC NECK PAIN ALLERGIES ZANAFLEX: BRADYCARDIA - SIDE EFFECTS SURGICAL HISTORY HERNIA REPAIR CHOLECYSTECTOMY TUMOR RESECTED LEFT SHOULDER LITHOTRIPSY GASTIC BYPASS 2013 BILATERAL CARPAL TUNNEL LEFT MOST RECENT KIDNEY STONE REMOVED 07/2019 FAMILY HISTORY FATHER: ALIVE MOTHER: , DIAGNOSED WITH OTHER MALIGNANT NEOPLASM OF UNSPECIFIED SITE SIBLINGS: OTHER MALIGNANT NEOPLASM OF UNSPECIFIED SITE MATERNAL GRAND MOTHER: DIABETES 2 SISTER(S) . 1 SON(S) , 1 DAUGHTER(S) - HEALTHY. NO PROSTATE,KIDNEY OR BLADDER CANCER MOTHER WITH BREAST CANCER SISTER WITH UTERINE CANCER GRANDFATHER UNKNOWN CANCER. SOCIAL HISTORY GENERAL: TOBACCO USE ARE YOU A:NONSMOKER IMMUNIZATION PROGRAM DO YOU FEEL SAFE IN YOUR ENVIRONMENT? NODISABLED FROM WORK , REGULAR PORTIION CONTROOLLED, DAILY, WALKS, , SPOUSE, CHILDREN. OTHERS AT HOME: DO YOU FEEL SAFE IN YOUR ENVIRONMENT? NODISABLED FROM WORK , REGULAR PORTIION CONTROOLLED, DAILY, WALKS, . HOUSING: PFS REFERRAL NEEDED? NO, CLERGY REFERRAL NEEDED? NO, PUBLIC HEALTH REFERRAL NEEDED? NO, WAS THE PROVIDER NOTIFIED OF ANY PERTINENT INFO? NO, HAS THE PATIENT BEEN EDUCATED REGARDING HIS/HER PLAN OF CARE? YES, HAS THE PATIENT BEEN EDUCATED REGARDING PAIN, THE RISK FOR PAIN, THE IMPORTANCE OF EFFECTIVE PAIN MANAGEMENT, AND THE PAIN ASSESSMENT PROCESS? YES. EDUCATION LEVEL OF EDUCATION:NOT ANSWERED [employer]OL DIET: REGULAR. LANGUAGE LANGUAGES SPOKEN:MAORI NEW PATIENT PAIN DIARY MONOGAMOUS? YES. RECREATIONAL DRUG USE DRUG USE?NO EXERCISE: NONE. LEARNING BARRIERS / SPECIAL NEEDS SPECIAL DEVICES?YES CPAP PAIN CLINIC PFS, CLERGY, PUBLIC HEALTH REFERRALS PFS REFERRAL NEEDED?NO CLERGY REFERRAL NEEDED?NO PUBLIC HEALTH REFERRAL NEEDED?NO WAS THE PROVIDER NOTIFIED OF ANY PERTINENT INFO?YES HAS THE PATIENT BEEN EDUCATED REGARDING HIS/HER PLAN OF CARE?YES HAS THE PATIENT BEEN EDUCATED REGARDING PAIN, THE RISK FOR PAIN, THE IMPORTANCE OF EFFECTIVE PAIN MANAGEMENT, AND THE PAIN ASSESSMENT PROCESS?YES LATEX QUESTIONNAIRE LATEX ALLERGY : HAVE YOU EVER DEVELOPED ANY TYPE OF REACTION AFTER HANDLING LATEX PRODUCTS SUCH RUBBER GLOVES, CONDOMS, DIAPHRAGMS, BALLOONS, SOCKS, OR UNDERWEAR?NO LATEX ALLERGY : HAVE YOU EVER DEVELOPED ANY TYPE OF REACTION DURING OR AFTER DENTAL APPOINTMENT, VAGINAL/RECTAL EXAMINATION, SURGICAL PROCEDURE, OR ANY OTHER EXPOSURE?NO DATE ASKED : 06/30/2019 LATEX RISK : HAVE YOU EVER HAD ANY DIFFICULTY BREATHING OR HIVES AFTER EATING OR HANDLING ANY FRUITS, OR VEGETABLES; SUCH KIWI, BANANAS, STONE FRUITS, OR CHESTNUTSNO LATEX RISK : DO YOU HAVE A PREVIOUS PERSONAL HISTORY OF MORE THAN NINE SURGERIES, SPINA BIFIDA, OR REPEATED CATHERIZATIONS? NO LATEX RISK : ARE YOU FREQUENTLY EXPOSED TO LATEX PRODUCTS IN YOUR OCCUPATION?NO CAFFEINE CAFFEINE USE?NO ADVANCE DIRECTIVE ADVANCE DIRECTIVE DISCUSSED WITH PATIENT:YES HCP IS JULIET DOTSON [phone] HINDUISM HINDUISM JEW MARITAL STATUS: DO YOU FEEL SAFE IN YOUR ENVIRONMENT? NODISABLED FROM WORK , REGULAR PORTIION CONTROOLLED, DAILY, WALKS. ALCOHOL SCREENING DID YOU HAVE A DRINK CONTAINING ALCOHOL IN THE PAST YEAR?NO POINTS0 INTERPRETATIONNEGATIVE PRE PROCEDURE PHONE CALL COMPLETE 06/30/19 1030 BVNOT A SMOKER OR ETOH. PLASTERING CONTRACTOR BY PROFESSIONREVIEWED WITH PT, 10/18/18 1130 LASREVIEWED WITH PT 02/13/19 1039 BVREVIEWED WITH PATIENT 03/17/19 0911 NLJREVIEWED WITH PATIENT 04/24/19 0945 LAS. HOSPITALIZATION/MAJOR DIAGNOSTIC PROCEDURE SURGERY RELATED REVIEW OF SYSTEMS REVIEWED BY: PROVIDER: SHARLENE WHITE-Adam . CONSTITUTIONAL: ANY CHANGE IN YOUR MEDICAL CONDITION? NO . CHILLS NO . FEVER NO . INFECTION: DO YOU HAVE NEW INFECTIONS? NO . DO YOU HAVE HISTORY OF MRSA? NO . MUSCULOSKELETAL: ANY NEW PATTERNS OF PAIN OR NUMBNESS? NO . GASTROENTEROLOGY: ANY NEW CHANGE IN BOWEL CONTROL? NO . GENITOURINARY: ANY NEW CHANGE IN BLADDER CONTROL? NO . IS THERE A CHANCE YOU COULD BE ? NO . HEMATOLOGY/LYMPH: DO YOU TAKE ANY BLOOD THINNERS? (FOR EXAMPLE- COUMADIN, PLAVIX, AGGRENOX, PLATEL, PRADAXA, OR XARELTO) NO . WHEN WAS YOUR LAST DOSE? DATE: TIME: . NEUROLOGY: HAVE YOU FALLEN IN THE PAST 12 MONTHS? YES, PRIOR TO LAST VISIT . ANY NEW EXTREMITY NUMBNESS OR WEAKNESS? NO . CARDIOLOGY: DO YOU HAVE A PACEMAKER OR DEFIBRILLATOR? NO . RESPIRATORY: HAVE YOU BEEN SICK IN THE PAST WEEK? NO . FEVER NO . FLU LIKE SYMPTOMS? NO . COUGH NO . INTEGUMENTARY: DO YOU HAVE ANY RASHES OR OPEN SORES? NO . ALLERGIC/IMMUNO: ARE YOU ALLERGIC TO IV DYE? NO . ANY NEW ALLERGIES? NO . PSYCHIATRIC: DO YOU HAVE THOUGHTS OF HURTING YOURSELF OR SOMEONE ELSE? NO . ARE YOU ABUSED, NEGLECTED, OR IN AN UNSAFE ENVIRONMENT? NO . ENDOCRINOLOGY: ARE YOU DIABETIC? NO . OTHER: DO YOU NEED ANY PRESCRIPTIONS? YES, TYLENOL W CODEINE . IF YES, PLEASE LIST: ____ . ANY NEW PROBLEMS WITH YOUR MEDICATIONS? NO . WHEN DID YOU LAST EAT? ____ . WHEN DID YOU LAST DRINK? ____ . WHAT DID YOU LAST DRINK? ____ . NAME OF PERSON DRIVING YOU HOME? ____ . DO YOU HAVE ANY OTHER QUESTIONS OR CONCERNS NO . VITAL SIGNS WT 318 LBS, HT 69 IN, BMI 46.96 INDEX, BP 135/80 MM HG, HR 76 /MIN, RR 18 /MIN, TEMP 96.8 F, OXYGEN SAT % 97%, NA INITIALS SC 09:50, REVIEWED BY: SHUBHAM. EXAMINATION GENERAL EXAMINATION: GENERALNO ACUTE DISTRESS, WELL NOURISHED AND HYDRATED. PSYCHAPPROPRIATE MOOD AND AFFECT . LUNGS:CLEAR TO AUSCULTATION BILATERALLY, NO WHEEZES, RHONCHI, RALES. HEART:NO MURMURS, REGULAR RATE AND RHYTHM. 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 GIVEN PRESENTING SYMPTOMS AND RESULTS OF PHYSICAL EXAMINATION RECOMMENDED FOLLOW-UP IN 3 MONTHS. PATIENT HAS EXPRESSED UNDERSTANDING OF AND WAS IN AGREEMENT WITH TREATMENT PLAN. GIVEN TIME TO ASK QUESTIONS AND EXPRESS CONCERNS. PROCEDURE CODES FA211 ESTABILISHED PATIENT [facility] CHARGE DISPOSITION & COMMUNICATION FOLLOW UP 3 MONTHS (REASON: NECK PAIN) ELECTRONICALLY SIGNED BY CINDY GAMEZ ON 08/04/2019 AT 01:01 PM EST DISCLAIMER : THIS IS A VISIT SUMMARY EXTRACTED FROM THE [employer] CHART. IT IS NOT A COPY OF THE [employer] PROGRESS NOTE. PHIL
== END ==
LOC: M PAIN 10:15
PROVIDERS: ATTEND Family Medicine
DX: M50.10 Cervical disc disorder with radiculopathy, unspecified cervical region (principal)

== ENCOUNTER → 2019-08-05 | Outpatient (REF) | payer BC ==
[2019-08-05 13:03] LABS: HEMATOCRIT 44.9 % (42.0-52.0)
[2019-08-05 13:16] LABS: PERCENT SATURATION 26.5 % (19.7-50.0)
== END ==
LOC: M LAB REF 12:26
PROVIDERS: ATTEND Internal Medicine
DX: Z98.84 Bariatric surgery status (principal)

== ENCOUNTER → 2019-08-14 | Outpatient (CLI) | payer BC ==
--- NOTE | 2019-08-15 03:09 | REP ---
Clinical: Right-sided kidney stones. Technique: Two supine views of the abdomen and pelvis. Findings: Right ureteral stent in satisfactory position. No obvious renal calculi identified although evaluation is somewhat limited due to overlying bowel gas and technique. The bowel gas pattern is nonspecific and without obstruction. 2.5 cm calcification again overlies the right iliac wing. Skeletal structures are intact. Impression: Right ureteral stent in satisfactory position. Electronically Signed by Humberto Pandya MD 08/15/2019 03:00 A
== END ==
LOC: M ADAMS 08:37
PROVIDERS: ATTEND Urology
DX: N20.0 Calculus of kidney (principal); Z96.0 Presence of urogenital implants

== ENCOUNTER → 2019-10-31 | Outpatient (CLI) | payer BC ==
[~2019-10-31] MED LIST changes: +CYCL-707 PO; -CYCL10TA PO
--- NOTE | 2019-11-04 04:58 | ECWPNPC ---
PATIENT NAME: JOE DOTSON : 1960 GENDER: MALE VISIT DATE: 10/31/2019 DISCHARGE DATE: 10/31/19 1000 VISIT LOCKED DATE TIME: PHYSICIAN: KENNEDY MILES RESOURCE: KENNEDY MILES REASON FOR APPOINTMENT 1. BACK [phone] HISTORY OF PRESENT ILLNESS HISTORY OF PRESENT ILLNESS: PAIN THE PATIENT DESCRIBES THE PAINDURING THE LAST MONTH SEVERITY - PAIN SCORE OF8/10 LOCATIONSNECK, UPPER BACK QUALITYACHING , BURNING, SHARP, STABBING, TENDER, SORE DURATIONCONTINUOUS, CONSTANT, ALL DAY PAIN IS INCREASED BY:ACTIVITIES, PROLONGED STANDING PERMISSION REQUESTED AND RECEIVED FROM PATIENT TO PERFORM TELEHEALTH VISIT. HE RATES HIS PAIN CURRENTLY AT AN 8 OUT OF 10 AND DESCRIBES IT ACHING, BURNING, SHARP, STABBING, TENDER, AND SORE. PATIENT HAD CERVICAL FACET BLOCKS PERFORMED IN JUNE OF LAST YEAR WHICH WORKED FOR APPROXIMATELY 4 MONTHS. HE DOES ADMIT TO INCREASED PAIN CURRENTLY HOWEVER. FALL RISK SCREENING: SCREENING :ONE FALL WITHOUT INJURY IN THE PAST YEAR CURRENT MEDICATIONS TAKING VERAPAMIL HCL 300 MG CAPSULE EXTENDED RELEASE 24 HOUR 1 CAPSULE AT BEDTIME ORALLY ONCE A DAY TAKING FLEXERIL 10 MG TABLET 1 TABLET ORALLY TID TAKING XYZAL 5 MG TABLET 1 TABLET IN THE EVENING ORALLY ONCE A DAY TAKING EFFEXOR XR 150 MG CAPSULE EXTENDED RELEASE 24 HOUR 2 CAPSULE WITH FOOD ORALLY ONCE A DAY TAKING EFFEXOR XR 75 MG CAPSULE EXTENDED RELEASE 24 HOUR 1 CAPSULE WITH FOOD ORALLY ONCE A DAY TAKING NEXIUM 40 MG CAPSULE DELAYED RELEASE 1 CAPSULE ORALLY TWICE DAILY TAKING CENTRUM ADULTS - TABLET ORALLY DAILY TAKING VITAMIN B12 500 MCG TABLET 1 TABLET ORALLY ONCE A DAY TAKING LISINOPRIL 5 MG TABLET 1 TABLET ORALLY ONCE A DAY TAKING KLONOPIN 0.5 MG TABLET 1 TABLET ORALLY FOUR TIMES PER DAY TAKING NEURONTIN 300 MG CAPSULE 1 CAPSULE ORALLY TWICE DAILY TAKING PRAZOSIN HCL 2 MG CAPSULE 2 CAPSULE AT BEDTIME ORALLY ONCE A DAY TAKING TRAZODONE HCL 50 MG TABLET 2 TABLETS AT BEDTIME ORALLY ONCE A DAY TAKING IRON 325 (65 FE) MG TABLET 1 TABLET ORALLY TWICE DAILY TAKING ABILIFY 1 TABLET ORALLY AT BEDTIME TAKING CALCIUM 600 MG TABLET 1 TABLET WITH MEALS ORALLY TWICE A DAY TAKING TYLENOL WITH CODEINE #3 300-30 MG TABLET 1 TABLET NEEDED ORALLY EVERY 6 HRS TAKING FLOMAX 0.4 MG CAPSULE 1 CAPSULE ORALLY ONCE A DAY TAKING KETOROLAC TROMETHAMINE 10 MG TABLET 1 TABLET WITH FOOD OR MILK NEEDED ORALLY EVERY 6 HRS NOT-TAKING CENTRUM - TABLET DIRECTED ORALLY , NOTES: DUPLICATEDUPLICATE MEDICATION LIST REVIEWED AND RECONCILED WITH THE PATIENT PAST MEDICAL HISTORY HYPERLIPIDEMIA ESOPHAGEAL REFLUX KIDNEY STONES HYPERTENSION PTSD BARRETTS ESOPHAGUS CHRONIC KIDNEY DISEASE SYNDROME BILATERRAL CARPAL TUNNEL CHRONIC NECK PAIN ALLERGIES ZANAFLEX: BRADYCARDIA - SIDE EFFECTS SURGICAL HISTORY HERNIA REPAIR CHOLECYSTECTOMY TUMOR RESECTED LEFT SHOULDER LITHOTRIPSY GASTIC BYPASS 2012 BILATERAL CARPAL TUNNEL LEFT MOST RECENT [phone] KIDNEY STONE REMOVED 07/2019 CYSTO WITH RIGHT STENT REMOVAL 08/15/2019 FAMILY HISTORY FATHER: ALIVE MOTHER: , DIAGNOSED WITH OTHER MALIGNANT NEOPLASM OF UNSPECIFIED SITE SIBLINGS: OTHER MALIGNANT NEOPLASM OF UNSPECIFIED SITE MATERNAL GRAND MOTHER: DIABETES 2 SISTER(S) . 1 SON(S) , 1 DAUGHTER(S) - HEALTHY. NO PROSTATE,KIDNEY OR BLADDER CANCER MOTHER WITH BREAST CANCER SISTER WITH UTERINE CANCER GRANDFATHER UNKNOWN CANCER. SOCIAL HISTORY GENERAL: TOBACCO USE ARE YOU A:NONSMOKER IMMUNIZATION PROGRAM DO YOU FEEL SAFE IN YOUR ENVIRONMENT? NODISABLED FROM WORK , REGULAR PORTIION CONTROOLLED, DAILY, WALKS, , SPOUSE, CHILDREN. OTHERS AT HOME: DO YOU FEEL SAFE IN YOUR ENVIRONMENT? NODISABLED FROM WORK , REGULAR PORTIION CONTROOLLED, DAILY, WALKS, . HOUSING: PFS REFERRAL NEEDED? NO, CLERGY REFERRAL NEEDED? NO, PUBLIC HEALTH REFERRAL NEEDED? NO, WAS THE PROVIDER NOTIFIED OF ANY PERTINENT INFO? NO, HAS THE PATIENT BEEN EDUCATED REGARDING HIS/HER PLAN OF CARE? YES, HAS THE PATIENT BEEN EDUCATED REGARDING PAIN, THE RISK FOR PAIN, THE IMPORTANCE OF EFFECTIVE PAIN MANAGEMENT, AND THE PAIN ASSESSMENT PROCESS? YES. EDUCATION LEVEL OF EDUCATION:NOT ANSWERED [employer]OL DIET: REGULAR. LANGUAGE LANGUAGES SPOKEN:EMIRATI NEW PATIENT PAIN DIARY MONOGAMOUS? YES. RECREATIONAL DRUG USE DRUG USE?NO EXERCISE: NONE. LEARNING BARRIERS / SPECIAL NEEDS SPECIAL DEVICES?YES CPAP PAIN CLINIC PFS, CLERGY, PUBLIC HEALTH REFERRALS PFS REFERRAL NEEDED?NO CLERGY REFERRAL NEEDED?NO PUBLIC HEALTH REFERRAL NEEDED?NO WAS THE PROVIDER NOTIFIED OF ANY PERTINENT INFO?YES HAS THE PATIENT BEEN EDUCATED REGARDING HIS/HER PLAN OF CARE?YES HAS THE PATIENT BEEN EDUCATED REGARDING PAIN, THE RISK FOR PAIN, THE IMPORTANCE OF EFFECTIVE PAIN MANAGEMENT, AND THE PAIN ASSESSMENT PROCESS?YES LATEX QUESTIONNAIRE LATEX ALLERGY : HAVE YOU EVER DEVELOPED ANY TYPE OF REACTION AFTER HANDLING LATEX PRODUCTS SUCH RUBBER GLOVES, CONDOMS, DIAPHRAGMS, BALLOONS, SOCKS, OR UNDERWEAR?NO LATEX ALLERGY : HAVE YOU EVER DEVELOPED ANY TYPE OF REACTION DURING OR AFTER DENTAL APPOINTMENT, VAGINAL/RECTAL EXAMINATION, SURGICAL PROCEDURE, OR ANY OTHER EXPOSURE?NO DATE ASKED : 09/29/2019 LATEX RISK : HAVE YOU EVER HAD ANY DIFFICULTY BREATHING OR HIVES AFTER EATING OR HANDLING ANY FRUITS, OR VEGETABLES; SUCH KIWI, BANANAS, STONE FRUITS, OR CHESTNUTSNO LATEX RISK : DO YOU HAVE A PREVIOUS PERSONAL HISTORY OF MORE THAN NINE SURGERIES, SPINA BIFIDA, OR REPEATED CATHERIZATIONS? NO LATEX RISK : ARE YOU FREQUENTLY EXPOSED TO LATEX PRODUCTS IN YOUR OCCUPATION?NO CAFFEINE CAFFEINE USE?NO ADVANCE DIRECTIVE ADVANCE DIRECTIVE DISCUSSED WITH PATIENT:YES HCP IS JULIET DOTSON [phone] DRUZE DRUZE YAZIDI MARITAL STATUS: DO YOU FEEL SAFE IN YOUR ENVIRONMENT? NODISABLED FROM WORK , REGULAR PORTIION CONTROOLLED, DAILY, WALKS. ALCOHOL SCREENING DID YOU HAVE A DRINK CONTAINING ALCOHOL IN THE PAST YEAR?NO POINTS0 INTERPRETATIONNEGATIVE OCCUPATION: RETIRED. SEXUAL HX HAD SEX IN THE LAST 12 MONTHS (VAGINAL, ORAL, OR ANAL)?NO HAVE YOU EVER HAD AN STD?NO PRE PROCEDURE PHONE CALL COMPLETE 06/30/19 1030 BVNOT A SMOKER OR ETOH. 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 HOSPITALIZATION/MAJOR DIAGNOSTIC PROCEDURE SURGERY RELATED REVIEW OF SYSTEMS REVIEWED BY: PROVIDER: SHARLENE WHITE-Adam . CONSTITUTIONAL: ANY CHANGE IN YOUR MEDICAL CONDITION? NO . CHILLS NO . FEVER NO . INFECTION: DO YOU HAVE NEW INFECTIONS? NO . DO YOU HAVE HISTORY OF MRSA? NO . MUSCULOSKELETAL: ANY NEW PATTERNS OF PAIN OR NUMBNESS? NO . GASTROENTEROLOGY: ANY NEW CHANGE IN BOWEL CONTROL? NO . GENITOURINARY: ANY NEW CHANGE IN BLADDER CONTROL? NO . IS THERE A CHANCE YOU COULD BE ? NO . HEMATOLOGY/LYMPH: DO YOU TAKE ANY BLOOD THINNERS? (FOR EXAMPLE- COUMADIN, PLAVIX, AGGRENOX, PLATEL, PRADAXA, OR XARELTO) NO . WHEN WAS YOUR LAST DOSE? DATE: TIME: . NEUROLOGY: HAVE YOU FALLEN IN THE PAST 12 MONTHS? YES, PT STATED HE WAS CUTTING TREES, TRIPPED AND FELL WITH NO INJURY . ANY NEW EXTREMITY NUMBNESS OR WEAKNESS? NO . CARDIOLOGY: DO YOU HAVE A PACEMAKER OR DEFIBRILLATOR? NO . RESPIRATORY: HAVE YOU BEEN SICK IN THE PAST WEEK? NO . FEVER NO . FLU LIKE SYMPTOMS? NO . COUGH NO . INTEGUMENTARY: DO YOU HAVE ANY RASHES OR OPEN SORES? YES, LEFT SHOULDER FROM TUMOR RADIATION . ALLERGIC/IMMUNO: ARE YOU ALLERGIC TO IV DYE? NO . ANY NEW ALLERGIES? NO . PSYCHIATRIC: DO YOU HAVE THOUGHTS OF HURTING YOURSELF OR SOMEONE ELSE? NO . ARE YOU ABUSED, NEGLECTED, OR IN AN UNSAFE ENVIRONMENT? NO . ENDOCRINOLOGY: ARE YOU DIABETIC? NO . OTHER: DO YOU NEED ANY PRESCRIPTIONS? YES, REFILL TYLENOL WITH CODEINE . IF YES, PLEASE LIST: ____ . ANY NEW PROBLEMS WITH YOUR MEDICATIONS? NO . WHEN DID YOU LAST EAT? ____ . WHEN DID YOU LAST DRINK? ____ . WHAT DID YOU LAST DRINK? ____ . NAME OF PERSON DRIVING YOU HOME? ____ . DO YOU HAVE ANY OTHER QUESTIONS OR CONCERNS NO . EXAMINATION GENERAL EXAMINATION: PSYCHAPPROPRIATE MOOD AND AFFECT , ORIENTED X 3 . ASSESSMENTS SPONDYLOSIS OF CERVICAL REGION WITHOUT MYELOPATHY OR RADICULOPATHY - M47.812 (PRIMARY) TREATMENT SPONDYLOSIS OF CERVICAL REGION WITHOUT MYELOPATHY OR RADICULOPATHY CLINICAL NOTES: 59-YEAR-OLD MALE IN FOR CHRONIC PAIN FOLLOW-UP. GIVEN PRESENTING SYMPTOMS RECOMMEND PATIENT FOLLOW-UP IN CLINIC IN 4 WEEKS TO DISCUSS REPEAT CERVICAL FACET BLOCK. PATIENT HAS EXPRESSED UNDERSTANDING OF AND WAS IN AGREEMENT WITH TREATMENT PLAN. GIVEN TIME TO ASK QUESTIONS AND EXPRESS CONCERNS., ISTOP REGISTRY REVIEWED AND DEMONSTRATES COMPLLIANCE. (REF # [id number] ) BRINGS IN MEDICATIONS WHICH IS APPROPRIATE FOR WHAT WAS DISPENSED. RECENT URINE TOXICOLOGY REVIEWED. NO UNAUTHORIZED MEDICATIONS. NO ILLICIT SUBSTANCES AND PRESCRIBED MEDICATIONS WERE PRESENT. VISIT TO BE BILLED BASED ON TIME SPENT WITH PATIENT. TIME SPENT WITH PATIENT 11 MINUTES. DISPOSITION & COMMUNICATION FOLLOW UP 4 WEEKS (REASON: NECK PAIN) ELECTRONICALLY SIGNED BY CINDY GAMEZ ON 11/03/2019 AT 08:54 AM EDT DISCLAIMER : THIS IS A VISIT SUMMARY EXTRACTED FROM THE [employer] CHART. IT IS NOT A COPY OF THE [employer] PROGRESS NOTE. MTDD
== END ==
LOC: M PAIN 10:30
PROVIDERS: ATTEND Family Medicine
DX: M47.812 Spondylosis without myelopathy or radiculopathy, cervical region (principal); Z79.899 Other long term (current) drug therapy; Z98.84 Bariatric surgery status; Z88.8 Allergy status to other drugs, medicaments and biological substances

== ENCOUNTER → 2019-12-02 | Outpatient (CLI) | payer BC ==
--- NOTE | 2020-01-06 04:41 | ECWPNPC ---
PATIENT NAME: JOE DOTSON : 1960 GENDER: MALE VISIT DATE: 12/02/2019 DISCHARGE DATE: 12/02/19 1014 VISIT LOCKED DATE TIME: PHYSICIAN: KENNEDY MILES RESOURCE: KENNEDY MILES REASON FOR APPOINTMENT 1. NECK PAIN PAT COMPLETED HISTORY OF PRESENT ILLNESS HISTORY OF PRESENT ILLNESS: PAIN THE PATIENT DESCRIBES THE PAINDURING THE LAST MONTH SEVERITY - PAIN SCORE OF8/10 LOCATIONSNECK QUALITYACHING , BURNING, SHARP, STABBING, TENDER, THROBBING, SORE, SHOOTING DURATIONCONTINUOUS, CONSTANT, ALL DAY, AWAKENS FROM SLEEEP PAIN IS INCREASED BY:ACTIVITIES PAIN IS DECREASED BY: EXCEDRIN PERMISSION REQUESTED AND RECEIVED FROM PATIENT TO PERFORM TELEPHONE VISIT. 59-YEAR-OLD MALE IN FOR CHRONIC PAIN FOLLOW-UP. HE RATES HIS PAIN CURRENTLY AT AN 8 OUT OF 10 AND DESCRIBES IT ACHING, BURNING, AND SHOOTING. PATIENT WOULD LIKE TO DISCUSS A REPEAT CERVICAL FACET BLOCK HE HAS HAD THIS IN THE PAST AND RECEIVED GOOD RESULTS WITH IT. FALL RISK SCREENING: SCREENING :NO FALLS REPORTED IN THE LAST YEAR CURRENT MEDICATIONS TAKING VERAPAMIL HCL 300 MG CAPSULE EXTENDED RELEASE 24 HOUR 1 CAPSULE AT BEDTIME ORALLY ONCE A DAY TAKING FLEXERIL 10 MG TABLET 1 TABLET ORALLY TID TAKING XYZAL 5 MG TABLET 1 TABLET IN THE EVENING ORALLY ONCE A DAY TAKING EFFEXOR XR 150 MG CAPSULE EXTENDED RELEASE 24 HOUR 2 CAPSULE WITH FOOD ORALLY ONCE A DAY TAKING EFFEXOR XR 75 MG CAPSULE EXTENDED RELEASE 24 HOUR 1 CAPSULE WITH FOOD ORALLY ONCE A DAY TAKING NEXIUM 40 MG CAPSULE DELAYED RELEASE 1 CAPSULE ORALLY TWICE DAILY TAKING CENTRUM ADULTS - TABLET ORALLY DAILY TAKING VITAMIN B12 500 MCG TABLET 1 TABLET ORALLY ONCE A DAY TAKING LISINOPRIL 5 MG TABLET 1 TABLET ORALLY ONCE A DAY TAKING KLONOPIN 0.5 MG TABLET 1 TABLET ORALLY FOUR TIMES PER DAY TAKING NEURONTIN 300 MG CAPSULE 1 CAPSULE ORALLY TWICE DAILY TAKING PRAZOSIN HCL 2 MG CAPSULE 2 CAPSULE AT BEDTIME ORALLY ONCE A DAY TAKING TRAZODONE HCL 50 MG TABLET 2 TABLETS AT BEDTIME ORALLY ONCE A DAY TAKING IRON 325 (65 FE) MG TABLET 1 TABLET ORALLY TWICE DAILY TAKING ABILIFY 1 TABLET ORALLY AT BEDTIME TAKING CALCIUM 600 MG TABLET 1 TABLET WITH MEALS ORALLY TWICE A DAY TAKING TYLENOL WITH CODEINE #3 300-30 MG TABLET 1 TABLET NEEDED ORALLY EVERY 6 HRS TAKING KETOROLAC TROMETHAMINE 10 MG TABLET 1 TABLET WITH FOOD OR MILK NEEDED ORALLY EVERY 6 HRS NOT-TAKING FLOMAX 0.4 MG CAPSULE 1 CAPSULE ORALLY ONCE A DAY NOT-TAKING CENTRUM - TABLET DIRECTED ORALLY , NOTES: DUPLICATEDUPLICATE MEDICATION LIST REVIEWED AND RECONCILED WITH THE PATIENT PAST MEDICAL HISTORY HYPERLIPIDEMIA ESOPHAGEAL REFLUX KIDNEY STONES HYPERTENSION PTSD BARRETTS ESOPHAGUS CHRONIC KIDNEY DISEASE SYNDROME BILATERRAL CARPAL TUNNEL CHRONIC NECK PAIN ALLERGIES ZANAFLEX: BRADYCARDIA - SIDE EFFECTS SURGICAL HISTORY HERNIA REPAIR CHOLECYSTECTOMY TUMOR RESECTED LEFT SHOULDER LITHOTRIPSY GASTIC BYPASS 2012 BILATERAL CARPAL TUNNEL LEFT MOST RECENT KIDNEY STONE REMOVED 07/2019 CYSTO WITH RIGHT STENT REMOVAL 08/15/2019 FAMILY HISTORY FATHER: ALIVE MOTHER: , DIAGNOSED WITH OTHER MALIGNANT NEOPLASM OF UNSPECIFIED SITE SIBLINGS: OTHER MALIGNANT NEOPLASM OF UNSPECIFIED SITE MATERNAL GRAND MOTHER: DIABETES 2 SISTER(S) . 1 SON(S) , 1 DAUGHTER(S) - HEALTHY. NO PROSTATE,KIDNEY OR BLADDER CANCER MOTHER WITH BREAST CANCER SISTER WITH UTERINE CANCER GRANDFATHER UNKNOWN CANCER. SOCIAL HISTORY GENERAL: TOBACCO USE ARE YOU A:NONSMOKER LATEX QUESTIONNAIRE LATEX ALLERGY : HAVE YOU EVER DEVELOPED ANY TYPE OF REACTION AFTER HANDLING LATEX PRODUCTS SUCH RUBBER GLOVES, CONDOMS, DIAPHRAGMS, BALLOONS, SOCKS, OR UNDERWEAR?NO LATEX ALLERGY : HAVE YOU EVER DEVELOPED ANY TYPE OF REACTION DURING OR AFTER DENTAL APPOINTMENT, VAGINAL/RECTAL EXAMINATION, SURGICAL PROCEDURE, OR ANY OTHER EXPOSURE?NO DATE ASKED : 09/29/2019 LATEX RISK : HAVE YOU EVER HAD ANY DIFFICULTY BREATHING OR HIVES AFTER EATING OR HANDLING ANY FRUITS, OR VEGETABLES; SUCH KIWI, BANANAS, STONE FRUITS, OR CHESTNUTSNO LATEX RISK : DO YOU HAVE A PREVIOUS PERSONAL HISTORY OF MORE THAN NINE SURGERIES, SPINA BIFIDA, OR REPEATED CATHERIZATIONS? NO LATEX RISK : ARE YOU FREQUENTLY EXPOSED TO LATEX PRODUCTS IN YOUR OCCUPATION?NO ALCOHOL SCREENING DID YOU HAVE A DRINK CONTAINING ALCOHOL IN THE PAST YEAR?NO POINTS0 INTERPRETATIONNEGATIVE RECREATIONAL DRUG USE DRUG USE?NO CAFFEINE CAFFEINE USE?NO SEXUAL HX HAD SEX IN THE LAST 12 MONTHS (VAGINAL, ORAL, OR ANAL)?NO HAVE YOU EVER HAD AN STD?NO MOSQUE MOSQUE PROTESTANT LANGUAGE LANGUAGES SPOKEN:IRAQI EDUCATION LEVEL OF EDUCATION:NOT ANSWERED [employer] LEARNING BARRIERS / SPECIAL NEEDS SPECIAL DEVICES?YES CPAP OCCUPATION: RETIRED. DIET: REGULAR. EXERCISE: NONE. MARITAL STATUS: DO YOU FEEL SAFE IN YOUR ENVIRONMENT? NODISABLED FROM WORK , REGULAR PORTIION CONTROOLLED, DAILY, WALKS. OTHERS AT HOME: DO YOU FEEL SAFE IN YOUR ENVIRONMENT? NODISABLED FROM WORK , REGULAR PORTIION CONTROOLLED, DAILY, WALKS, . IMMUNIZATION PROGRAM DO YOU FEEL SAFE IN YOUR ENVIRONMENT? NODISABLED FROM WORK , REGULAR PORTIION CONTROOLLED, DAILY, WALKS, , SPOUSE, CHILDREN. NEW PATIENT PAIN DIARY MONOGAMOUS? YES. PAIN CLINIC PFS, CLERGY, PUBLIC HEALTH REFERRALS PFS REFERRAL NEEDED?NO CLERGY REFERRAL NEEDED?NO PUBLIC HEALTH REFERRAL NEEDED?NO WAS THE PROVIDER NOTIFIED OF ANY PERTINENT INFO?YES HAS THE PATIENT BEEN EDUCATED REGARDING HIS/HER PLAN OF CARE?YES HAS THE PATIENT BEEN EDUCATED REGARDING PAIN, THE RISK FOR PAIN, THE IMPORTANCE OF EFFECTIVE PAIN MANAGEMENT, AND THE PAIN ASSESSMENT PROCESS?YES HOUSING: PFS REFERRAL NEEDED? NO, CLERGY REFERRAL NEEDED? NO, PUBLIC HEALTH REFERRAL NEEDED? NO, WAS THE PROVIDER NOTIFIED OF ANY PERTINENT INFO? NO, HAS THE PATIENT BEEN EDUCATED REGARDING HIS/HER PLAN OF CARE? YES, HAS THE PATIENT BEEN EDUCATED REGARDING PAIN, THE RISK FOR PAIN, THE IMPORTANCE OF EFFECTIVE PAIN MANAGEMENT, AND THE PAIN ASSESSMENT PROCESS? YES. ADVANCE DIRECTIVE ADVANCE DIRECTIVE DISCUSSED WITH PATIENT:YES HCP IS JULIET DOTSON [phone] PRE PROCEDURE PHONE CALL COMPLETE 06/30/19 1030 BVNOT A SMOKER OR ETOH. SOLUTION SALES SENIOR EXECUTIVE BY PROFESSIONREVIEWED WITH PT, 10/18/18 1130 LASREVIEWED WITH PT 02/13/19 1039 BVREVIEWED WITH PATIENT 03/17/19 0911 NLJREVIEWED WITH PATIENT 04/24/19 0945 LAS. HOSPITALIZATION/MAJOR DIAGNOSTIC PROCEDURE SURGERY RELATED REVIEW OF SYSTEMS REVIEWED BY: PROVIDER: SHARLENE MILES METAL CUTTER-C . CONSTITUTIONAL: ANY CHANGE IN YOUR MEDICAL CONDITION? NO . CHILLS NO . FEVER NO . INFECTION: DO YOU HAVE NEW INFECTIONS? NO . DO YOU HAVE HISTORY OF MRSA? NO . MUSCULOSKELETAL: ANY NEW PATTERNS OF PAIN OR NUMBNESS? NO . GASTROENTEROLOGY: ANY NEW CHANGE IN BOWEL CONTROL? NO . GENITOURINARY: ANY NEW CHANGE IN BLADDER CONTROL? NO . IS THERE A CHANCE YOU COULD BE ? NO . HEMATOLOGY/LYMPH: DO YOU TAKE ANY BLOOD THINNERS? (FOR EXAMPLE- COUMADIN, PLAVIX, AGGRENOX, PLATEL, PRADAXA, OR XARELTO) NO . WHEN WAS YOUR LAST DOSE? DATE: TIME: . NEUROLOGY: HAVE YOU FALLEN IN THE PAST 12 MONTHS? NO . ANY NEW EXTREMITY NUMBNESS OR WEAKNESS? NO . CARDIOLOGY: DO YOU HAVE A PACEMAKER OR DEFIBRILLATOR? NO . RESPIRATORY: HAVE YOU BEEN SICK IN THE PAST WEEK? NO . FEVER NO . FLU LIKE SYMPTOMS? NO . COUGH NO . INTEGUMENTARY: DO YOU HAVE ANY RASHES OR OPEN SORES? NO . ALLERGIC/IMMUNO: ARE YOU ALLERGIC TO IV DYE? NO . ANY NEW ALLERGIES? NO . PSYCHIATRIC: DO YOU HAVE THOUGHTS OF HURTING YOURSELF OR SOMEONE ELSE? NO . ARE YOU ABUSED, NEGLECTED, OR IN AN UNSAFE ENVIRONMENT? NO . ENDOCRINOLOGY: ARE YOU DIABETIC? NO . OTHER: DO YOU NEED ANY PRESCRIPTIONS? YES, TYLENOL WITH CODEINE #3 . IF YES, PLEASE LIST: ____ . ANY NEW PROBLEMS WITH YOUR MEDICATIONS? NO . WHEN DID YOU LAST EAT? ____ . WHEN DID YOU LAST DRINK? ____ . WHAT DID YOU LAST DRINK? ____ . NAME OF PERSON DRIVING YOU HOME? ____ . DO YOU HAVE ANY OTHER QUESTIONS OR CONCERNS NO . EXAMINATION GENERAL EXAMINATION: PSYCHAPPROPRIATE MOOD AND AFFECT , ORIENTED X 3. NECK:PATIENT ENDORSES TENDERNESS OF THE CERVICAL SPINE AND HAS INCREASED PAIN WITH FACET LOADING. . ASSESSMENTS SPONDYLOSIS OF CERVICAL REGION WITHOUT MYELOPATHY OR RADICULOPATHY - M47.812 (PRIMARY) TREATMENT SPONDYLOSIS OF CERVICAL REGION WITHOUT MYELOPATHY OR RADICULOPATHY CLINICAL NOTES: 59-YEAR-OLD MALE IN FOR CHRONIC PAIN FOLLOW-UP. GIVEN PRESENTING SYMPTOMS RECOMMEND BILATERAL THERAPEUTIC CERVICAL FACET BLOCK C3 C4 C4 C5 C5 C6 WITH POST PROCEDURAL FOLLOW-UP. PATIENT HAS EXPRESSED UNDERSTANDING OF AND WAS IN AGREEMENT WITH TREATMENT PLAN. GIVEN TIME TO ASK QUESTIONS AND EXPRESS CONCERNS. , ISTOP REGISTRY REVIEWED AND DEMONSTRATES COMPLLIANCE. (REF # ) BRINGS IN MEDICATIONS WHICH IS APPROPRIATE FOR WHAT WAS DISPENSED. RECENT URINE TOXICOLOGY REVIEWED. NO UNAUTHORIZED MEDICATIONS. NO ILLICIT SUBSTANCES AND PRESCRIBED MEDICATIONS WERE PRESENT. VISIT TO BE BILLED BASED ON TIME SPENT WITH PATIENT. TIME SPENT WITH PATIENT 11 MINUTES. OTHERS REFILL TYLENOL WITH CODEINE #3 TABLET, 300-30 MG, 1 TABLET NEEDED, ORALLY, EVERY 6 HRS, 30 DAYS, 50 NOTES: VITALS UNABLE TO OBTAINED DUE VIRTUAL VISIT, PRE-SCREENING COMPLETED 12/01/19,NA. DISPOSITION & COMMUNICATION FOLLOW UP POSTPROCEDURE (REASON: BILATERAL CERVICAL FACET BLOCK C3 C4 C4 C5 C6 C7) ELECTRONICALLY SIGNED BY CINDY GAMEZ ON 01/05/2020 AT 02:07 PM EDT DISCLAIMER : THIS IS A VISIT SUMMARY EXTRACTED FROM THE [employer] CHART. IT IS NOT A COPY OF THE [employer] PROGRESS NOTE. PHIL
== END ==
LOC: M PAIN 10:00
PROVIDERS: ATTEND Family Medicine
DX: M47.812 Spondylosis without myelopathy or radiculopathy, cervical region (principal)

== ENCOUNTER → 2019-12-12 | Outpatient (CLI) | payer BC ==
[~2019-12-12] MED LIST changes: +BUPIVACAINE HCL 0.25% 30ML VIAL As Ordered ONE; +ISOVUE-M 300 61% 15ML VIAL As Ordered ONE; +LIDOCAINE 1% SDV 30ML VIAL As Ordered ONE; +dexameTHASONE 10MG/1ML VIAL PRES.FREE (J1100 PER 1MG) As Ordered ONE; +diazePAM 5 MG TAB As Ordered ONE; +oxyCODONE 5MG TAB As Ordered ONE
--- NOTE | 2019-12-12 12:20 | REP ---
C-ARM VIEWS CERVICAL SPINE: CLINICAL HISTORY: Pain. Two C-arm views of the cervical spine performed during bilateral cervical facet injection performed by Dr. Lea. Three needles are seen along the bilateral cervical facets. Small amount of contrast is injected. 15 seconds of fluoroscopy time utilized. Electronically Signed by Hernesto Lugo MD 12/12/2019 03:51 P
--- NOTE | 2019-12-17 00:32 | ECWPNPC ---
PATIENT NAME: JOE DOTSON : 1960 GENDER: MALE VISIT DATE: 12/12/2019 DISCHARGE DATE: 12/12/19 1209 VISIT LOCKED DATE TIME: PHYSICIAN: BARBRA HART MD RESOURCE: BARBRA HART MD REASON FOR APPOINTMENT 1. BILAT CERVICAL FACET BLK C3-C4, C4-C5, C5-C6- PAT COMPLETED, PT WILL BE EARLY DUE TO TRANSPORTATION HISTORY OF PRESENT ILLNESS HISTORY OF PRESENT ILLNESS: PAIN THE PATIENT DESCRIBES THE PAIN... FALL RISK SCREENING: SCREENING :NO FALLS REPORTED IN THE LAST YEAR CURRENT MEDICATIONS TAKING VERAPAMIL HCL 300 MG CAPSULE EXTENDED RELEASE 24 HOUR 1 CAPSULE AT BEDTIME ORALLY ONCE A DAY, NOTES: 12/11 499 TAKING FLEXERIL 10 MG TABLET 1 TABLET ORALLY TID, NOTES: 12/11 499 TAKING XYZAL 5 MG TABLET 1 TABLET IN THE EVENING ORALLY ONCE A DAY, NOTES: 12/11 1999 TAKING EFFEXOR XR 150 MG CAPSULE EXTENDED RELEASE 24 HOUR 2 CAPSULE WITH FOOD ORALLY ONCE A DAY, NOTES: 12/11 499 TAKING EFFEXOR XR 75 MG CAPSULE EXTENDED RELEASE 24 HOUR 1 CAPSULE WITH FOOD ORALLY ONCE A DAY, NOTES: 12/11 499 TAKING NEXIUM 40 MG CAPSULE DELAYED RELEASE 1 CAPSULE ORALLY TWICE DAILY, NOTES: 12/11 499 TAKING CENTRUM ADULTS - TABLET ORALLY DAILY, NOTES: 12/11 499 TAKING VITAMIN B12 500 MCG TABLET 1 TABLET ORALLY ONCE A DAY, NOTES: 12/11 499 TAKING LISINOPRIL 5 MG TABLET 1 TABLET ORALLY ONCE A DAY, NOTES: 12/11 1999 TAKING KLONOPIN 0.5 MG TABLET 1 TABLET ORALLY FOUR TIMES PER DAY, NOTES: 12/11 499 TAKING NEURONTIN 300 MG CAPSULE 1 CAPSULE ORALLY TWICE DAILY, NOTES: 12/11 499 TAKING PRAZOSIN HCL 2 MG CAPSULE 2 CAPSULE AT BEDTIME ORALLY ONCE A DAY, NOTES: 12/11 1999 TAKING TRAZODONE HCL 50 MG TABLET 2 TABLETS AT BEDTIME ORALLY ONCE A DAY, NOTES: 12/11 1999 TAKING IRON 325 (65 FE) MG TABLET 1 TABLET ORALLY TWICE DAILY, NOTES: 12/11 499 TAKING ABILIFY 1 TABLET ORALLY AT BEDTIME, NOTES: 12/11 1999 TAKING CALCIUM 600 MG TABLET 1 TABLET WITH MEALS ORALLY TWICE A DAY, NOTES: 12/11 499 TAKING TYLENOL WITH CODEINE #3 300-30 MG TABLET 1 TABLET NEEDED ORALLY EVERY 6 HRS, NOTES: NONE LATELY NOT-TAKING KETOROLAC TROMETHAMINE 10 MG TABLET 1 TABLET WITH FOOD OR MILK NEEDED ORALLY EVERY 6 HRS NOT-TAKING FLOMAX 0.4 MG CAPSULE 1 CAPSULE ORALLY ONCE A DAY NOT-TAKING CENTRUM - TABLET DIRECTED ORALLY , NOTES: DUPLICATEDUPLICATE MEDICATION LIST REVIEWED AND RECONCILED WITH THE PATIENT PAST MEDICAL HISTORY HYPERLIPIDEMIA ESOPHAGEAL REFLUX KIDNEY STONES HYPERTENSION PTSD BARRETTS ESOPHAGUS CHRONIC KIDNEY DISEASE SYNDROME BILATERRAL CARPAL TUNNEL CHRONIC NECK PAIN ALLERGIES ZANAFLEX: BRADYCARDIA - SIDE EFFECTS SURGICAL HISTORY HERNIA REPAIR CHOLECYSTECTOMY TUMOR RESECTED LEFT SHOULDER LITHOTRIPSY GASTIC BYPASS 2012 BILATERAL CARPAL TUNNEL LEFT MOST RECENT [phone] KIDNEY STONE REMOVED 07/2019 CYSTO WITH RIGHT STENT REMOVAL 08/15/2019 FAMILY HISTORY FATHER: ALIVE MOTHER: , DIAGNOSED WITH OTHER MALIGNANT NEOPLASM OF UNSPECIFIED SITE SIBLINGS: OTHER MALIGNANT NEOPLASM OF UNSPECIFIED SITE MATERNAL GRAND MOTHER: DIABETES 2 SISTER(S) . 1 SON(S) , 1 DAUGHTER(S) - HEALTHY. NO PROSTATE,KIDNEY OR BLADDER CANCER MOTHER WITH BREAST CANCER SISTER WITH UTERINE CANCER GRANDFATHER UNKNOWN CANCER. SOCIAL HISTORY GENERAL: TOBACCO USE ARE YOU A:NONSMOKER LATEX QUESTIONNAIRE LATEX ALLERGY : HAVE YOU EVER DEVELOPED ANY TYPE OF REACTION AFTER HANDLING LATEX PRODUCTS SUCH RUBBER GLOVES, CONDOMS, DIAPHRAGMS, BALLOONS, SOCKS, OR UNDERWEAR?NO LATEX ALLERGY : HAVE YOU EVER DEVELOPED ANY TYPE OF REACTION DURING OR AFTER DENTAL APPOINTMENT, VAGINAL/RECTAL EXAMINATION, SURGICAL PROCEDURE, OR ANY OTHER EXPOSURE?NO LATEX RISK : HAVE YOU EVER HAD ANY DIFFICULTY BREATHING OR HIVES AFTER EATING OR HANDLING ANY FRUITS, OR VEGETABLES; SUCH KIWI, BANANAS, STONE FRUITS, OR CHESTNUTSNO LATEX RISK : DO YOU HAVE A PREVIOUS PERSONAL HISTORY OF MORE THAN NINE SURGERIES, SPINA BIFIDA, OR REPEATED CATHERIZATIONS? NO LATEX RISK : ARE YOU FREQUENTLY EXPOSED TO LATEX PRODUCTS IN YOUR OCCUPATION?NO DATE ASKED : 12/11/2019 ALCOHOL SCREENING DID YOU HAVE A DRINK CONTAINING ALCOHOL IN THE PAST YEAR?NO POINTS0 INTERPRETATIONNEGATIVE RECREATIONAL DRUG USE DRUG USE?NO CAFFEINE CAFFEINE USE?NO SEXUAL HX HAD SEX IN THE LAST 12 MONTHS (VAGINAL, ORAL, OR ANAL)?NO HAVE YOU EVER HAD AN STD?NO YAZIDI YAZIDI VOODOO LANGUAGE LANGUAGES SPOKEN:KINYARWANDA EDUCATION LEVEL OF EDUCATION:NOT ANSWERED [employer] LEARNING BARRIERS / SPECIAL NEEDS SPECIAL DEVICES?YES CPAP OCCUPATION: RETIRED. DIET: REGULAR. EXERCISE: NONE. IMMUNIZATION PROGRAM DO YOU FEEL SAFE IN YOUR ENVIRONMENT? NODISABLED FROM WORK , REGULAR PORTIION CONTROOLLED, DAILY, WALKS, , SPOUSE, CHILDREN. FEMALE 6 MONTH RISK ASSESSMENT FOR STD MONOGAMOUS?YES NEW PATIENT PAIN DIARY TODAY'S VISIT 12/12/2019 PATIENT DESCRIBES PAIN :ACHING, BURNING, HAVE IT ALL THE TIME, SHARP, STABBING, TENDER, THROBBING, SORE FROM 0-10, WHAT LEVEL IS YOUR PAIN TODAY?8 PRECIPITATING FACTORS WORKING AROUND THE HOUSE ALLEVIATING FACTORS REST, HEAT IMPACT ON FUNCTION NOT ABLE TO DO THE THINGS HE WOULD LIKE TO DO WITHOUT PAIN PAIN CLINIC PFS, CLERGY, PUBLIC HEALTH REFERRALS PFS REFERRAL NEEDED?NO CLERGY REFERRAL NEEDED?NO PUBLIC HEALTH REFERRAL NEEDED?NO HAS THE PATIENT BEEN EDUCATED REGARDING HIS/HER PLAN OF CARE?YES HAS THE PATIENT BEEN EDUCATED REGARDING PAIN, THE RISK FOR PAIN, THE IMPORTANCE OF EFFECTIVE PAIN MANAGEMENT, AND THE PAIN ASSESSMENT PROCESS?YES ADVANCE DIRECTIVE ADVANCE DIRECTIVE DISCUSSED WITH PATIENT:YES HCP IS JULIET DOTSON [phone] HOSPITALIZATION/MAJOR DIAGNOSTIC PROCEDURE SURGERY RELATED REVIEW OF SYSTEMS REVIEWED BY: PROVIDER: BARBRA HART MD . CONSTITUTIONAL: ANY CHANGE IN YOUR MEDICAL CONDITION? NO . CHILLS NO . FEVER NO . INFECTION: DO YOU HAVE NEW INFECTIONS? NO . DO YOU HAVE HISTORY OF MRSA? NO . MUSCULOSKELETAL: ANY NEW PATTERNS OF PAIN OR NUMBNESS? NO . GASTROENTEROLOGY: ANY NEW CHANGE IN BOWEL CONTROL? NO . GENITOURINARY: ANY NEW CHANGE IN BLADDER CONTROL? NO . IS THERE A CHANCE YOU COULD BE ? NO . HEMATOLOGY/LYMPH: DO YOU TAKE ANY BLOOD THINNERS? (FOR EXAMPLE- COUMADIN, PLAVIX, AGGRENOX, PLATEL, PRADAXA, OR XARELTO) NO . WHEN WAS YOUR LAST DOSE? DATE: TIME: . NEUROLOGY: HAVE YOU FALLEN IN THE PAST 12 MONTHS? NO . ANY NEW EXTREMITY NUMBNESS OR WEAKNESS? NO . CARDIOLOGY: DO YOU HAVE A PACEMAKER OR DEFIBRILLATOR? NO . RESPIRATORY: HAVE YOU BEEN SICK IN THE PAST WEEK? NO . FEVER NO . FLU LIKE SYMPTOMS? NO . COUGH NO . INTEGUMENTARY: DO YOU HAVE ANY RASHES OR OPEN SORES? YES- OPEN SORE LEFT SHOULDER, STATES IT IS FROM TUMOR REMOVAL AND RADIATION, STATES HE HAS HAD IT FOR A WHILE . ALLERGIC/IMMUNO: ARE YOU ALLERGIC TO IV DYE? NO . ANY NEW ALLERGIES? NO . PSYCHIATRIC: DO YOU HAVE THOUGHTS OF HURTING YOURSELF OR SOMEONE ELSE? NO . ARE YOU ABUSED, NEGLECTED, OR IN AN UNSAFE ENVIRONMENT? NO . ENDOCRINOLOGY: ARE YOU DIABETIC? NO . OTHER: DO YOU NEED ANY PRESCRIPTIONS? NO . IF YES, PLEASE LIST: ____ . ANY NEW PROBLEMS WITH YOUR MEDICATIONS? NO . WHEN DID YOU LAST EAT? 12/11/19 1800 . WHEN DID YOU LAST DRINK? 12/12/19 0500 . WHAT DID YOU LAST DRINK? GATORADE . NAME OF PERSON DRIVING YOU HOME? - JULIET . DO YOU HAVE ANY OTHER QUESTIONS OR CONCERNS NO . VITAL SIGNS WT 325.4 LBS, HT 69 IN, BMI 48.05 INDEX, BP 159/81 MM HG, HR 75 /MIN, RR 18 /MIN, TEMP 97.8 F, OXYGEN SAT % 94%, SAFE IN ENV? (Y/N) Y, NA INITIALS AW 0953, REVIEWED BY: EM. ASSESSMENTS SPONDYLOSIS OF CERVICAL REGION WITHOUT MYELOPATHY OR RADICULOPATHY - M47.812 TREATMENT SPONDYLOSIS OF CERVICAL REGION WITHOUT MYELOPATHY OR RADICULOPATHY [facility] [place] FACET BLOCK (PAIN)[id number] OTHERS NOTES: PRE SCREENING PHONE CALL COMPLETED 12/11/2019 1650 NLJ. PROCEDURES PN CERVICAL FACET BLOCK LOW BILATERAL CERVICAL PRE PROCEDURE DIAGNOSIS CERVICAL SPONDYLOSIS POST PROCEDURE DIAGNOSIS CERVICAL SPONDYLOSIS PROCEDURE BILATERAL C3-C4, BILATERAL C4-C5 AND BILATERAL C5-C6 THERAPEUTIC CERVICAL FACET BLOCK SURGEON DR. BARBRA HART TREE WRAPPER NONE ANESTHESIA LOCAL PRE PROCEDURE NOTE THE PATIENT HAS HISTORY OF CHRONIC CERVICAL PAIN. I EVALUATED THE PATIENT AND REVIEWED THE CHART. I WENT OVER THE RISKS, ALTERNATIVES, AND BENEFITS ASSOCIATED WITH THIS PROCEDURE. I DISCUSSED THAT THE USE OF STEROIDS MAY CONTRIBUTE TO IMMUNOSUPPRESSION OF THE PATIENT'S BODY AGAINST INFECTIONS SUCH THE BURNS VIRUS, COVID-19. THE PATIENT IS AWARE OF THE POTENTIAL COMPLICATIONS ASSOCIATED WITH AN INFECTION OF THIS VIRUS INCLUDING . THE PATIENT WOULD LIKE TO PROCEED AND GIVE CONSENT TO PERFORMED THE PROCEDURE. THE PATIENT DENIES UNEXPLAINABLE WEIGHT LOSS, FEVER, CHILLS, OR NEW CHANGES IN URINARY OR BOWEL CONTROL. THE PATIENT IS COVID-19 NEGATIVE DESCRIPTION OF PROCEDURE THE PATIENT WAS BROUGHT TO THE PROCEDURE ROOM AND PLACED IN THE PRONE POSITION. THE CERVICOTHORACIC AREA WAS CLEANED WITH CHLORAPREP SOLUTION AND DRAPED ASEPTICALLY. THE PROCEDURE WAS DONE UNDER STERILE CONDITIONS. I CHECKED LATERALITY AND THE LEVEL WHERE THE PROCEDURE WAS GOING TO BE PERFORMED WITH THE PATIENT AND THE SUPPORTING STAFF AT THE MOMENT OF THE TIME OUT IN THE PROCEDURE ROOM. UNDER FLUOROSCOPIC GUIDANCE, TARGET POINT WAS SELECTED AT THE LEFT AND RIGHT C3-C4, LEFT AND RIGHT C4-C5 AND LEFT AND RIGHT C5-C6 CERVICAL FACET JOINTS. TARGET POINTS WERE SELECTED AFTER LATERAL ROTATION AND TILT OF THE MAGNIFIER OF THE C-ARM. LIDOCAINE 0.5% WAS USED TO NUMB THE SKIN AND THE SUBCUTANEOUS TISSUE BELOW IT. SPINAL NEEDLES, 22-GAUGE, WERE ADVANCED UNDER FLUOROSCOPIC GUIDANCE AND FOLLOWING PATIENT FEEDBACK UNTIL THE TARGETS WERE TOUCHED. THE POSITION OF THE NEEDLES WAS VERIFIED WITH AP AND LATERAL VIEWS. AFTER PROPER POSITION OF THE NEEDLES WAS ACHIEVED, ISOVUE M DYE 30, 0.1 ML, WAS INJECTED SHOWING SPREAD OF THE DYE. THEN A SOLUTION OF 0.9 ML OF BUPIVACAINE 0.125% AND DEXAMETHASONE 5 MG WAS INJECTED AT EACH SITE. THERE WAS NO EVIDENCE OF BLOOD, PARESTHESIA OR CEREBROSPINAL FLUID DURING THE PROCEDURE. THE PATIENT WAS SENT TO THE RECOVERY ROOM. THE PATIENT WAS MOVING THE EXTREMITIES AND DOING WELL. THERE WAS NO COMPLICATION DURING THE PROCEDURE. FLUOROSCOPY TIME WAS 15 SECONDS POST PROCEDURE NOTE THE PATIENT WILL BE SEEN IN A FOLLOW UP IN THE NEXT FEW WEEKS. I AM LOOKING FOR LONG LASTING RELIEF FOR THE PATIENT WITH THIS INTERVENTION. INSTRUCTIONS WERE GIVEN, QUESTIONS WERE ANSWERED, AND THE PATIENT EXPRESSED UNDERSTANDING AND AGREES WITH THE PLAN. THE PATIENT IS AWARE TO STAY HOME FOR THE NEXT WEEK, IF POSSIBLE, DUE TO COVID-19. I, JAMEEL MCKEON, DOCUMENTED THE ABOVE INFORMATION ACTING A SCRIBE FOR DR. HART. I HAVE REVIEWED THE ABOVE DOCUMENT, WRITTEN BY JAMEEL MCKEON, [employer] ANALYST, AND I VERIFY THAT IT IS ACCURATE PROCEDURE CODES 94762 INJ PARAVERT F JNT C/T 1 LEV, MODIFIERS: 50 [id number] INJ PARAVERT F JNT C/T 2 LEV, MODIFIERS: 50 [id number] INJ PARAVERT F JNT C/T 3 LEV, MODIFIERS: 50 DISPOSITION & COMMUNICATION FOLLOW UP F/UP WITH [employer] (REASON: POST CFB C3-4,C4-5,C5-6) ELECTRONICALLY SIGNED BY BARBRA HART MD, MD ON 12/16/2019 AT 10:53 AM EDT DISCLAIMER : THIS IS A VISIT SUMMARY EXTRACTED FROM THE [employer] CHART. IT IS NOT A COPY OF THE [employer] PROGRESS NOTE. PHIL
== END ==
LOC: M PAIN 11:15
PROVIDERS: ATTEND Anesthesiology
DX: M47.812 Spondylosis without myelopathy or radiculopathy, cervical region (principal)
CPT/HCPCS: 64490; 64491; 64492; J1100; Q9967

== ENCOUNTER → 2019-12-30 | Outpatient (CLI) | payer BC ==
[~2019-12-30] MED LIST changes: -BUPIVACAINE HCL 0.25% 30ML VIAL As Ordered ONE; -ISOVUE-M 300 61% 15ML VIAL As Ordered ONE; -LIDOCAINE 1% SDV 30ML VIAL As Ordered ONE; -dexameTHASONE 10MG/1ML VIAL PRES.FREE (J1100 PER 1MG) As Ordered ONE; -diazePAM 5 MG TAB As Ordered ONE; -oxyCODONE 5MG TAB As Ordered ONE
--- NOTE | 2020-01-01 02:03 | ECWPNPC ---
PATIENT NAME: JOE DOTSON : 1960 GENDER: MALE VISIT DATE: 12/30/2019 DISCHARGE DATE: 12/30/19 1144 VISIT LOCKED DATE TIME: PHYSICIAN: KENNEDY MILES RESOURCE: KENNEDY MILES REASON FOR APPOINTMENT 1. POST CFBT PAT DONE HISTORY OF PRESENT ILLNESS GENERAL: -59-YEAR-OLD MALE IN FOR POST CERVICAL FACET BLOCK FOLLOW-UP. HE RATES HIS PAIN PREPROCEDURE AT AN 8 OUT OF 10 AND POSTPROCEDURE AT A 0 OUT OF 10. HE DOES ADMIT THAT HIS PAIN CAN GET UP TO A 6 OUT OF 10 IF HE OVERDOES IT WITH WORK OUTSIDE. HE RATES HIS PAIN CURRENTLY AT A 0 OUT OF 10. HE FEELS MEDICATIONS ARE HELPFUL AND DENIES MED SIDE EFFECTS AT THIS TIME. PAIN SCREENING: PATIENT HAS A COMPLAINT OF ACUTE OR CHRONIC PAIN :YES PRE PROCEDURE-03/01, LCVO-HPQGALSPT-0/10(PT. STATED HE WAS WORKING OUTSIDE). PROCEDURE HELPED LOCATION OF PAIN:NECK INTENSITY OF PAIN (SCALE OF 1 TO 10):6 WHAT DOES YOUR PAIN FEEL LIKE:ACHING, SORE DURATION:CONTINOUS, CONSTANT, ALL DAY PAIN IS INCREASED BY:ACTIVITIES PAIN IS DECREASED BY:USE OF PAIN MEDICATIONS, SITTING PLAN/GOALS/TREATMENT/INTERVENTION/FOLLOW UP:SEE PLAN FALL RISK SCREENING: SCREENING :NO FALLS REPORTED IN THE LAST YEAR NURSING NOTE: -. PAIN CENTER INTAKE QUESTIONS: DO YOU HAVE A HISTORY OF MRSA? :NO DO YOU TAKE A BLOOD THINNERS? :NO DO YOU HAVE ANY BLEEDING DISORDERS? :NO ANY NEW NUMBNESS OR WEAKNESS IN YOUR LEGS OR ARMS? :NO ANY PACEMAKER,DEFIBRILLATOR, OR DORSAL COLUMN STIMULATOR? :NO DO YOU HAVE ANY RASHES OR OPEN SORES? :NO ARE YOU ALLERGIC TO IV DYE? :NO ARE YOU DIABETIC? :NO ANY NEW PROBLEMS WITH YOUR MEDICATIONS? :NO HAVE YOU RECEIVED A VACCINE IN THE PAST 30 DAYS? :NO DO YOU PLAN TO RECEIVE A VACCINE IN THE NEXT 21 DAYS? :NO DO YOU NEED ANY PRESCRIPTION? :NO DO YOU TAKE ANY IMMUNOSUPPRESSIVE MEDICATIONS? :NO IS THERE A CHANCE YOU COULD BE ? :NO ARE YOU BREAST FEEDING? :NO CURRENT MEDICATIONS TAKING VERAPAMIL HCL 300 MG CAPSULE EXTENDED RELEASE 24 HOUR 1 CAPSULE AT BEDTIME ORALLY ONCE A DAY, NOTES: 12/11 499 TAKING FLEXERIL 10 MG TABLET 1 TABLET ORALLY TID, NOTES: 12/11 499 TAKING XYZAL 5 MG TABLET 1 TABLET IN THE EVENING ORALLY ONCE A DAY, NOTES: 12/11 1999 TAKING EFFEXOR XR 150 MG CAPSULE EXTENDED RELEASE 24 HOUR 2 CAPSULE WITH FOOD ORALLY ONCE A DAY, NOTES: 12/11 499 TAKING EFFEXOR XR 75 MG CAPSULE EXTENDED RELEASE 24 HOUR 1 CAPSULE WITH FOOD ORALLY ONCE A DAY, NOTES: 12/11 499 TAKING NEXIUM 40 MG CAPSULE DELAYED RELEASE 1 CAPSULE ORALLY TWICE DAILY, NOTES: 12/11 499 TAKING CENTRUM ADULTS - TABLET ORALLY DAILY, NOTES: 12/11 499 TAKING VITAMIN B12 500 MCG TABLET 1 TABLET ORALLY ONCE A DAY, NOTES: 12/11 499 TAKING LISINOPRIL 5 MG TABLET 1 TABLET ORALLY ONCE A DAY, NOTES: 12/11 1999 TAKING KLONOPIN 0.5 MG TABLET 1 TABLET ORALLY FOUR TIMES PER DAY, NOTES: 12/11 499 TAKING NEURONTIN 300 MG CAPSULE 1 CAPSULE ORALLY TWICE DAILY, NOTES: 12/11 499 TAKING PRAZOSIN HCL 2 MG CAPSULE 2 CAPSULE AT BEDTIME ORALLY ONCE A DAY, NOTES: 12/11 1999 TAKING TRAZODONE HCL 50 MG TABLET 2 TABLETS AT BEDTIME ORALLY ONCE A DAY, NOTES: 12/11 1999 TAKING IRON 325 (65 FE) MG TABLET 1 TABLET ORALLY TWICE DAILY, NOTES: 12/11 499 TAKING ABILIFY 1 TABLET ORALLY AT BEDTIME, NOTES: 12/11 1999 TAKING CALCIUM 600 MG TABLET 1 TABLET WITH MEALS ORALLY TWICE A DAY, NOTES: 12/11 499 TAKING TYLENOL WITH CODEINE #3 300-30 MG TABLET 1 TABLET NEEDED ORALLY EVERY 6 HRS, NOTES: NONE LATELY NOT-TAKING KETOROLAC TROMETHAMINE 10 MG TABLET 1 TABLET WITH FOOD OR MILK NEEDED ORALLY EVERY 6 HRS NOT-TAKING FLOMAX 0.4 MG CAPSULE 1 CAPSULE ORALLY ONCE A DAY NOT-TAKING CENTRUM - TABLET DIRECTED ORALLY , NOTES: DUPLICATEDUPLICATE MEDICATION LIST REVIEWED AND RECONCILED WITH THE PATIENT PAST MEDICAL HISTORY HYPERLIPIDEMIA ESOPHAGEAL REFLUX KIDNEY STONES HYPERTENSION PTSD BARRETTS ESOPHAGUS CHRONIC KIDNEY DISEASE SYNDROME BILATERRAL CARPAL TUNNEL CHRONIC NECK PAIN ALLERGIES ZANAFLEX: BRADYCARDIA - SIDE EFFECTS SURGICAL HISTORY HERNIA REPAIR CHOLECYSTECTOMY TUMOR RESECTED LEFT SHOULDER LITHOTRIPSY GASTIC BYPASS 2012 BILATERAL CARPAL TUNNEL LEFT MOST RECENT KIDNEY STONE REMOVED 07/2019 CYSTO WITH RIGHT STENT REMOVAL 08/15/2019 FAMILY HISTORY FATHER: ALIVE MOTHER: , DIAGNOSED WITH OTHER MALIGNANT NEOPLASM OF UNSPECIFIED SITE SIBLINGS: OTHER MALIGNANT NEOPLASM OF UNSPECIFIED SITE MATERNAL GRAND MOTHER: DIABETES 2 SISTER(S) . 1 SON(S) , 1 DAUGHTER(S) - HEALTHY. NO PROSTATE,KIDNEY OR BLADDER CANCER MOTHER WITH BREAST CANCER SISTER WITH UTERINE CANCER GRANDFATHER UNKNOWN CANCER. SOCIAL HISTORY GENERAL: TOBACCO USE ARE YOU A:NONSMOKER LATEX QUESTIONNAIRE LATEX ALLERGY : HAVE YOU EVER DEVELOPED ANY TYPE OF REACTION AFTER HANDLING LATEX PRODUCTS SUCH RUBBER GLOVES, CONDOMS, DIAPHRAGMS, BALLOONS, SOCKS, OR UNDERWEAR?NO LATEX ALLERGY : HAVE YOU EVER DEVELOPED ANY TYPE OF REACTION DURING OR AFTER DENTAL APPOINTMENT, VAGINAL/RECTAL EXAMINATION, SURGICAL PROCEDURE, OR ANY OTHER EXPOSURE?NO LATEX RISK : HAVE YOU EVER HAD ANY DIFFICULTY BREATHING OR HIVES AFTER EATING OR HANDLING ANY FRUITS, OR VEGETABLES; SUCH KIWI, BANANAS, STONE FRUITS, OR CHESTNUTSNO LATEX RISK : DO YOU HAVE A PREVIOUS PERSONAL HISTORY OF MORE THAN NINE SURGERIES, SPINA BIFIDA, OR REPEATED CATHERIZATIONS? NO LATEX RISK : ARE YOU FREQUENTLY EXPOSED TO LATEX PRODUCTS IN YOUR OCCUPATION?NO DATE ASKED : 12/29/2019 ALCOHOL SCREENING DID YOU HAVE A DRINK CONTAINING ALCOHOL IN THE PAST YEAR?NO POINTS0 INTERPRETATIONNEGATIVE RECREATIONAL DRUG USE DRUG USE?NO CAFFEINE CAFFEINE USE?NO SEXUAL HX HAD SEX IN THE LAST 12 MONTHS (VAGINAL, ORAL, OR ANAL)?NO HAVE YOU EVER HAD AN STD?NO YAZIDISM YAZIDISM JEW LANGUAGE LANGUAGES SPOKEN:ICELANDIC EDUCATION LEVEL OF EDUCATION:NOT ANSWERED [employer] LEARNING BARRIERS / SPECIAL NEEDS SPECIAL DEVICES?YES CPAP OCCUPATION: RETIRED. DIET: REGULAR. EXERCISE: NONE. IMMUNIZATION PROGRAM DO YOU FEEL SAFE IN YOUR ENVIRONMENT? NODISABLED FROM WORK , REGULAR PORTIION CONTROOLLED, DAILY, WALKS, , SPOUSE, CHILDREN. FEMALE 6 MONTH RISK ASSESSMENT FOR STD MONOGAMOUS?YES NEW PATIENT PAIN DIARY TODAY'S VISIT 12/12/2019 PATIENT DESCRIBES PAIN :ACHING, BURNING, HAVE IT ALL THE TIME, SHARP, STABBING, TENDER, THROBBING, SORE FROM 0-10, WHAT LEVEL IS YOUR PAIN TODAY?8 PRECIPITATING FACTORS WORKING AROUND THE HOUSE ALLEVIATING FACTORS REST, HEAT IMPACT ON FUNCTION NOT ABLE TO DO THE THINGS HE WOULD LIKE TO DO WITHOUT PAIN PAIN CLINIC PFS, CLERGY, PUBLIC HEALTH REFERRALS PFS REFERRAL NEEDED?NO CLERGY REFERRAL NEEDED?NO PUBLIC HEALTH REFERRAL NEEDED?NO HAS THE PATIENT BEEN EDUCATED REGARDING HIS/HER PLAN OF CARE?YES HAS THE PATIENT BEEN EDUCATED REGARDING PAIN, THE RISK FOR PAIN, THE IMPORTANCE OF EFFECTIVE PAIN MANAGEMENT, AND THE PAIN ASSESSMENT PROCESS?YES ADVANCE DIRECTIVE ADVANCE DIRECTIVE DISCUSSED WITH PATIENT:YES HCP IS JULIET DOTSON [phone] HOSPITALIZATION/MAJOR DIAGNOSTIC PROCEDURE SURGERY RELATED REVIEW OF SYSTEMS CONSTITUTIONAL: ANY RECENT FEVER OR ILLNESS NO . CHILLS NO . GASTROENTEROLOGY: BOWEL INCONTINENCE NO . ANY NEW CHANGE IN BOWEL CONTROL? NO . ABDOMINAL PAIN NO . CONSTIPATION NO . GENITOURINARY: ANY NEW CHANGE IN BLADDER CONTROL? NO . URINARY INCONTINENCE NO . CARDIOLOGY: CHEST PRESSURE NO . CHEST PAIN NO . RESPIRATORY: COUGH NO . SHORTNESS OF BREATH NO . EXAMINATION GENERAL EXAMINATION: PSYCHAPPROPRIATE MOOD AND AFFECT , ORIENTED X 3. ASSESSMENTS SPONDYLOSIS OF CERVICAL REGION WITHOUT MYELOPATHY OR RADICULOPATHY - M47.812 (PRIMARY) TREATMENT SPONDYLOSIS OF CERVICAL REGION WITHOUT MYELOPATHY OR RADICULOPATHY CLINICAL NOTES: 59-YEAR-OLD MALE IN FOR POST CERVICAL FACET BLOCK FOLLOW-UP. GIVEN PRESENTING SYMPTOMS RECOMMENDED CONTINUATION OF CURRENT MEDICATION REGIMEN WITH FOLLOW-UP IN 2 MONTHS. PATIENT HAS EXPRESSED UNDERSTANDING OF AND WAS IN AGREEMENT WITH TREATMENT PLAN. GIVEN TIME TO ASK QUESTIONS AND EXPRESS CONCERNS. , ISTOP REGISTRY REVIEWED AND DEMONSTRATES COMPLLIANCE. (REF # [id number] ) BRINGS IN MEDICATIONS WHICH IS APPROPRIATE FOR WHAT WAS DISPENSED. RECENT URINE TOXICOLOGY REVIEWED. NO UNAUTHORIZED MEDICATIONS. NO ILLICIT SUBSTANCES AND PRESCRIBED MEDICATIONS WERE PRESENT. VISIT TO BE BILLED BASED ON TIME SPENT WITH PATIENT. TIME SPENT WITH PATIENT 11 MINUTES. OTHERS CONTINUE TYLENOL WITH CODEINE #3 TABLET, 300-30 MG, 1 TABLET NEEDED, ORALLY, EVERY 6 HRS, NOTES: NONE LATELY NOTES: VITALS NOT OBTAINED DUE TO VIRTUAL VISIT, PRE-SCREENING COMPLETED, NA, 12/29/19. DISPOSITION & COMMUNICATION FOLLOW UP 2 MONTHS (REASON: NECK PAIN) ELECTRONICALLY SIGNED BY CINDY GAMEZ ON 12/31/2019 AT 02:11 PM EDT DISCLAIMER : THIS IS A VISIT SUMMARY EXTRACTED FROM THE [employer] CHART. IT IS NOT A COPY OF THE [employer] PROGRESS NOTE. PHIL
== END ==
LOC: M PAIN 11:00
PROVIDERS: ATTEND Family Medicine
DX: M47.812 Spondylosis without myelopathy or radiculopathy, cervical region (principal)

== ENCOUNTER → 2020-03-01 | Outpatient (CLI) | payer BC | LOC: M PAIN 10:00 | PROVIDERS: ATTEND Family Medicine | DX: M47.812 Spondylosis without myelopathy or radiculopathy, cervical region (principal) ==

== ENCOUNTER → 2020-04-05 | Outpatient (CLI) | payer BC ==
--- NOTE | 2020-04-21 16:55 | REP ---
KUB: 2-VIEWS HISTORY: N20.0. COMPARISON: KUB study 08/14/2019. FINDINGS: There are clips in the right upper quadrant and sutures in the left upper quadrant as before. There is a large centrally lucent peripherally dense calcification over the right psoas margin unchanged from prior study consistent with calcified mesenteric lymph node. This measures 2.5 cm. No urinary tract calculus is visible. Bowel gas pattern is unremarkable. IMPRESSION: No urinary tract calculus seen. Calcified mesenteric lymph node in the right lower quadrant. MTDD
== END ==
LOC: M ADAMS 10:57
PROVIDERS: ATTEND Nurse Practitioner Women's Health
DX: N20.0 Calculus of kidney (principal)

== ENCOUNTER → 2020-06-02 | Outpatient (CLI) | payer BC, MEDICARE ==
--- NOTE | 2020-06-02 08:59 | REP ---
INDICATION: OSTEOARTHRITIS RIGHT KNEE/PRE OP/LABS. COMPARISON: Chest 07/09/2019, 10/26/2010, CT 03/29/2007. TECHNIQUE: Two views FINDINGS: Of the lung wade are adequately inflated. CP angles are sharply defined without effusion. There is no lateral pleural thickening or apical scarring. No dense consolidation parenchymal mass. The heart is not enlarged. The aorta is normal for age. Airway is intact. There is no mediastinal or hilar mass. Bony thorax shows degenerative changes throughout the thoracic spine without compression deformity. No free air under the diaphragm. IMPRESSION: 1. No acute cardiopulmonary change. Stable chest. <Electronically signed by Chris Coulter > 06/02/20 [id number]
[2020-06-02 09:30] LABS: HEMATOCRIT 44.2 % (42.0-52.0); HEMOGLOBIN 13.7 g/dl (13.5-17.5); MEAN CORPUSCULAR HEMOGLOBIN 29.3 pg (27.0-33.0); MEAN CORPUSCULAR VOLUME 94.4 fl (80.0-96.0); PLATELET COUNT, AUTOMATED 397 10^3/uL (150-450); RED BLOOD COUNT 4.68 10^6/uL (4.30-6.10); WHITE BLOOD COUNT 6.6 10^3/uL (4.0-10.0)
[2020-06-02 09:49] LABS: INR 0.91; PROTHROMBIN TIME 12.4 SECONDS (12.5-14.3)
[2020-06-02 10:01] LABS: ALBUMIN 3.9 GM/DL (3.2-5.2); ALT/SGPT 24 U/L (12-78); BILIRUBIN,TOTAL 0.3 MG/DL (0.2-1.0); BLOOD UREA NITROGEN 17 MG/DL (7-18); CALCIUM LEVEL 8.9 MG/DL (8.8-10.2); CARBON DIOXIDE LEVEL 28 MEQ/L (21-32); CHLORIDE LEVEL 108 MEQ/L (98-107); CREATININE FOR GFR 0.84 MG/DL (0.70-1.30); GLOMERULAR FILTRATION RATE > 60.0 (>49); GLUCOSE, FASTING 71 MG/DL (70-100); POTASSIUM SERUM 4.2 MEQ/L (3.5-5.1); SODIUM LEVEL 142 MEQ/L (136-145); TOTAL PROTEIN 6.5 GM/DL (6.4-8.2)
[2020-06-02 10:02] LABS: ERYTHROCYTE SEDIMENTATION RATE 6 mm/hr (0-20)
--- NOTE | 2020-06-02 17:15 | ECGEPIP ---
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
== END ==
LOC: M LAB 08:13
PROVIDERS: ATTEND Orthopaedic Surgery
DX: Z01.818 Encounter for other preprocedural examination (principal); M17.11 Unilateral primary osteoarthritis, right knee; N18.4 Chronic kidney disease, stage 4 (severe)

== ENCOUNTER → 2020-06-23 | Outpatient (CLI) | payer MEDICARE, BC ==
[~2020-06-23] MED LIST changes: +CLON1TAB8 PO; +ECOT81TA5 PO; -EFFE150C2; +EFFE150C2 PO; +GABA-282 PO; -GABA-843; -LISI-542 PO; +LISI-898 PO
== END ==
LOC: M LABSMTC 09:48
PROVIDERS: ATTEND Anesthesiology
DX: Z01.812 Encounter for preprocedural laboratory examination (principal); Z20.828 Contact with and (suspected) exposure to other viral communicable diseases

== ENCOUNTER 2020-06-28 08:55 | Inpatient (IN) | payer BC, MEDICARE ==
--- NOTE | 2020-06-23 17:04 | HPE ---
HISTORY AND PHYSICAL DATE OF ADMISSION: 06/28/2020 CHIEF COMPLAINT: Right knee pain. HISTORY OF PRESENT ILLNESS: Mr. Barrow is a pleasant, 60-year-old male with progressively worsening right knee pain and stiffness. He has failed to improve with conservative treatment. He has elected for surgery for his continued symptoms. He has pain with weightbearing activities and his activities of daily living. X-rays of his knee are notable for advanced osteoarthritis of the right knee joint. He is consented for a right total knee arthroplasty by Dr. Mayur Cheatham. Medical optimization was performed by Dr. Vazquez. ALLERGIES: Zanaflex. CURRENT MEDICATIONS: - Abilify 2 mg at night - Flexeril 10 mg three times a day as needed - Xyzal 5 mg - Effexor XR 300 and Effexor XR 75 mg once a daily - Nexium 40 mg twice a day - Centrum chewables - vitamin B12 500 mg - vitamin D3 1000 mg - lisinopril 5 mg at night - Klonopin 0.5 mg four times a day - Neurontin 300 mg twice a day - prazosin 4 mg at night - trazodone 50 mg at night - iron 65 mg twice a day - calcium 600 mg twice a day PAST MEDICAL HISTORY: Include high blood pressure, chronic kidney disease (CKD) stage III, hyperlipidemia, anxiety and depression, posttraumatic stress disorder (PTSD). PAST SURGICAL HISTORY: Includes gastric bypass. 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 FAMILY HISTORY: Noncontributory. REVIEW OF SYSTEMS: This patient denies chest pain, heart palpitations, cough, wheezing, difficulty breathing, and shortness of breath. He denies abdominal pain, nausea, vomiting, diarrhea, or constipation. He denies recent upper respiratory infection or urinary tract infection symptoms. He does complain of persistent pain in his right knee and trouble with his daily activities. PHYSICAL EXAMINATION: GENERAL: He is a well-nourished, well-developed, in no acute distress, alert, male patient. He ambulates with a moderate limp favoring his right lower extremity. He is not using assistive devices. VITAL SIGNS: He is 5 foot 10, weighs 304 pounds, with a temperature of 97.1, blood pressure 140/82, pulse of 76, respirations of 18. NECK: Supple without adenopathy or jugular venous distention. LUNGS: Clear to auscultation without rales or wheeze. HEART: Regular rate and rhythm. ABDOMEN: Bowel sounds were present. EXTREMITIES: Examination of the knee reveals intact skin. He has decreased range of motion due to pain and stiffness. The limb is neurovascularly intact. LABORATORY DATA: Chest x-ray showed no acute cardiopulmonary disease processes. EKG showed normal sinus rhythm. ProTime 12.4, INR is 0.91, glucose 71, BUN 17, creatinine 0.84, sodium 142, potassium 4.2. CBC was within normal limits with a sedimentation rate of 6. IMPRESSION: Symptomatic osteoarthritis of the right knee. PLAN: Consented for a right total knee arthroplasty by Dr. Mayur Cheatham.
[2020-06-28] VITALS (8 sets, daily range): BP systolic 126–152; BP diastolic 75–90
[~2020-06-28] VITALS: Ht 177.8 cm; Wt 140.6 kg
[~2020-06-28 08:55] MED LIST changes: +ACETAMINOPHEN 500 MG TAB PO ONE; -CLON1TAB8 PO; -ECOT81TA5 PO; -GABA-282 PO; +GABA-843 PO; +LISI-542 PO; -LISI-898 PO; +LR 1,000 ML IV ONE; +ceFAZolin SOD 1 GM in D5W MINI-BAG PLUS 50 ML IV ONE; +ceFAZolin SOD 2 GM in IV 1 EA IV ONE
[2020-06-28] MEDS ORDERED: fentaNYL 100 MCG/2 ML INJECTION (J3010) As Ordered ONE (10:17)
[2020-06-28] MEDS ORDERED: MIDAZOLAM INJ 2MG/2ML VIAL (J2250 PER 1MG) As Ordered ONE (10:17)
[2020-06-28] MEDS ORDERED: dexameTHASONE 4 MG/ML 1ML VIAL (J1100 PER 1MG) As Ordered ONE (10:51)
[2020-06-28] MEDS ORDERED: ROPIvacaine 0.5% 30ML INJECTION (J2795 PER 1MG) XX ONE (11:15)
[2020-06-28] MEDS ORDERED: dexameTHASONE 10MG/1ML VIAL PRES.FREE (J1100 PER 1MG) XX ONE (11:15)
[2020-06-28] MEDS ORDERED: LIDOCAINE 1% MDV 20ML VIAL XX ONE (11:15)
[2020-06-28] MEDS: fentaNYL 100 MCG/2 ML INJECTION (J3010) IV PRN ×4 (11:22→17:03)
[2020-06-28] MEDS: MIDAZOLAM INJ 2MG/2ML VIAL (J2250 PER 1MG) IV PRN ×2 (11:22→11:25)
[2020-06-28] MEDS ORDERED: TRANEXAMIC ACID 100 MG/ML 10ML VIAL As Ordered ONE (12:00)
[2020-06-28] MEDS ORDERED: BUPIVACAINE LIPOSOME/PF 1.3% 20ML VIAL (13.3MG/ML)(EXPAREL)(C9290 PER1MG) As Ordered ONE (12:00)
[2020-06-28] MEDS ORDERED: EPINEPHrine INJ 1 MG/ML 1ML AMP As Ordered ONE (12:00)
[2020-06-28] MEDS ORDERED: ceFAZolin 1GM VIAL (J0690 PER 500MG) As Ordered ONE (12:00)
[2020-06-28] MEDS ORDERED: BUPIVACAINE HCL 0.25% 10ML VIAL As Ordered ONE (12:00)
[2020-06-28] MEDS ORDERED: METOCLOPRAMIDE INJ 10MG/2ML VIAL (J2765 PER 1) As Ordered ONE (12:51)
[2020-06-28] MEDS ORDERED: ONDANSETRON 4MG/2ML VIAL As Ordered ONE (12:53)
[2020-06-28] MEDS ORDERED: propofoL 500 MG/50 ML VIAL As Ordered ONE (13:05)
--- NOTE | 2020-06-28 14:57 | RO ---
OPERATIVE NOTE DATE OF OPERATION: 06/28/2020 PREOPERATIVE DIAGNOSIS: Right knee degenerative arthritis. POSTOPERATIVE DIAGNOSIS: Right knee degenerative arthritis. PROCEDURE: Right total knee arthroplasty using size 4 cruciate-retaining cemented femoral component with size 5 tibial tray and 7 mm rotating platform polyethylene insert, 32 mm polyethylene button, all components cemented. Prosthesis made by [employer]. It was Attune knee. SURGEON: Kristy Howard MD CAST IRON DIPPER: KENISHA Lim ANESTHESIA: Spinal with right femoral nerve block. SPECIMEN: Joint surface. COMPLICATIONS: None. ESTIMATED BLOOD LOSS: 20 mL. PROCEDURE: Antibiotics were given intravenously preoperatively and then successful spinal anesthetic was induced. Tourniquet placed about right upper thigh, not inflated. Right lower extremity was carefully prepped and draped in usual sterile fashion and then elevated. After appropriate time out tourniquet was inflated. Longitudinal incision was made for medial parapatellar approach to the knee. The Bovie cautery was used to coagulate the crossing vessels down to knee joint capsule. Arthrotomy performed. Subperiosteal dissection around the proximal medial tibia and lateral tibial plateaus performed and them we flexed the knee and debrided the ACL. Drill was placed down the center of the femoral canal followed by intramedullary pavan and distal femoral cutting jig set at 9 mm resection level for 5 degrees valgus cut for the distal femur. The jig was applied and then distal femoral cut was performed. AP sizing jig measured for size 4 component and 3-degrees external rotation were dialed in. The four-in-one block was applied. Great care was taken to protect the surrounding soft tissues as we performed the anterior, posterior and chamfer cuts. The notchplasty jig was then applied, the notchplasty was performed. We then exposed the proximal tibia and used the extramedullary alignment jig to estimate being parallel to the mechanical axis referencing off the medial tibial condyle. The block was pinned into position and then the extramedullary pavan confirmed we appeared to be parallel to the mechanical axis. Thus the proximal tibial osteotomy was performed. We then placed laminar manhole builder laterally and performed completion medial meniscectomy and then debridement of the posteromedial osteophytes. We then placed laminar manhole builder medially and performed completion lateral meniscectomy and debrided posterolateral osteophytes. The spacer block fit best with 7 mm with good symmetry to varus, valgus stress testing both in flexion and extension. Thus we exposed the proximal tibia and sized for #5 tibial tray which was pinned into position followed by the reamer and broach, trialed [address], followed by trial femoral component, brought the knee through range of motion. He had excellent stability to varus, valgus stress testing both in extension and in flexion. However, in flexion he had a very terminus of flexion, there was a little bit of tightness and increased rollback and thus I did release a little bit of the PCL. We brought the knee into extension, everted the patella, performed patellar osteotomy, sized for 32 button, lug holes were drilled, patellar trial placed and patellofemoral tracking was anatomic. We then drilled the lug holes for the femur, removed all the trial components, copiously pulse lavaged and irrigated out the knee joint. Exparel was placed in subperiosteal tissues around the distal femur and proximal tibia as my certified ophthalmic surgical assistant Ms. Dafne Rose mixed the cement on the back table as I prepared the bony surfaces for cementing with copious amount of pulsatile lavage irrigant solution. Ms. Rose was also critical to the success of this difficult procedure by helping with the appropriate soft tissue retraction, helping to manipulate the knee as needed, and helped to prepare the patient for surgery, helped to close the wound amongst many other tasks to allow me to perform the operation smoothly, efficiently and safely. Once all the bony surfaces were thoroughly dried, I cemented the tibial tray, removed excess cement and placed polyethylene and then cemented the femoral component, removed excess cement and brought the knee into extension and then held the patellar button with a clamp, removed excess cement and held the knee in extension as we waited for the cement to harden. As we did so we copiously pulse lavaged and irrigated out the knee joint with copious amounts of pulse lavage irrigant saline solution. I checked the notch to be sure there was no bony extrusion. Tranexamic acid was then placed in the wound and we began closing the apex of the arthrotomy with two #1 PDS sutures, medial parapatellar area was closed with #1 PDS suture and then double-arm running Stratafix was used to close the capsule in running fashion. We released the tourniquet, we irrigated and closed the deep subdermal tissue with interrupted 2-0 PDS sutures, skin was closed with césar, covered with Adaptic, dry, sterile bulky dressing with Optifoam. He was then transferred to the recovery room in stable condition. There were no intraoperative complications.
[2020-06-28] MEDS ORDERED: ONDANSETRON 4MG/2ML VIAL IV PRN ×2 (15:00)
[2020-06-28] MEDS ORDERED: fentaNYL 100 MCG/2 ML INJECTION (J3010) IV PRN (15:00)
[2020-06-28] MEDS ORDERED: HYDROMORPHONE HCL 0.5 MG/ 0.5 ML SYRINGE (J1170 PER 1) IV PRN (15:00)
[2020-06-28] MEDS ORDERED: oxyCODONE 5MG TAB PO PRN (15:00)
[2020-06-28] MEDS ORDERED: ACETAMINOPHEN TAB 650MG DOSE (2X325MG) PO PRN (15:00)
[2020-06-28] MEDS ORDERED: PERCOCET 5MG/325MG TAB PO PRN ×3 (15:00→17:00)
[2020-06-28] MEDS ORDERED: MORPHINE 4 MG/ML 1ML VIAL/SYRINGE (J2270) IV PRN ×2 (15:00)
[2020-06-28] MEDS ORDERED: LR 1,000 ML IV SCH ×2 (15:00)
--- NOTE | 2020-06-28 15:13 | REP ---
INDICATION: POST OP IN PACU COMPARISON: None. TECHNIQUE: Portable AP and lateral views right knee obtained. FINDINGS: Total knee prosthesis is in place and is in good position. Osseous structures are intact and well aligned. Metallic skin césar are seen anteriorly. IMPRESSION: Right total knee arthroplasty in good position. <Electronically signed by Hernesto Lugo > 06/28/20 [id number]
--- NOTE | 2020-06-28 18:26 | CR.PDOC ---
General Date of Consultation: Jun 28, 2020 Consultation REASON FOR CONSULTATION/CHIEF COMPLAINT: Medical management HISTORY OF PRESENT ILLNESS: Patient is 60 years old male with past history of hypertension, chronic kidney diseases stage III, hyperlipidemia presented to the hospital for elective right knee replacement. The surgery was done today, patient tolerates procedure well. Patient denied fever, chills, nausea, vomiting, chest pain, palpitations, shortness of breath, diarrhea or dysuria ALLERGIES: Please see below. HOME MEDICATIONS: Please see below. PAST MEDICAL HISTORY: Include high blood pressure, chronic kidney disease (CKD) stage III, hyperlipidemia, anxiety and depression, posttraumatic stress disorder (PTSD). PAST SURGICAL HISTORY: Gastric bypass surgery FAMILY HISTORY: I personally reviewed the history and follow-up on persistent SOCIAL HISTORY: Patient denied tobacco abuse, tobacco abuse or alcohol abuse history REVIEW OF SYSTEMS: 10 points review history negative except as listed above PHYSICAL EXAMINATION: VITAL SIGNS: Please see below. Objective: GENERAL APPEARANCE: NAD HEENT: no scleral icterus, no JVD, EOMI CARDIOVASCULAR: S1S2 LUNGS: CTA ABDOMEN: soft & not tender w palpitation MUSCULOSKELETAL: Right knee covered with dressing, no cyanosis, pulse patient intact bilaterally INTEGUMENT: no generalized palor NEUROLOGICAL: cranial nerve function from 2-12 intact intact, follows commands, speech not dysarthric LABORATORY DATA: Please see below. ASSESSMENT/PLAN: Status post total knee arthroplasty Anticoagulation per Orthopedic team Pain management Incentive spirometry Hypertension Continue home cardioprotective medications Depression Continue home meds Hyperlipidemia Statin Vital Signs/I&O Vital Signs Date Time Temp Pulse Resp B/P (MAP) Pulse Ox O2 Delivery O2 Flow Rate FiO2 06/28/20 16:30 18 06/28/20 15:05 97.5 62 164/94 (117) 94 Room Air 06/28/20 12:15 2 Allergies Coded Allergies: ENVIROMENTAL (Verified Allergy, Mild, SNEEZING, 06/28/20) tizanidine (Verified Adverse Reaction, Severe, LOWERED HEART RATE, ) Home Medications Scheduled Aripiprazole (Abilify) 2 Mg Tablet, 2 MG PO QHS, (Reported) Calcium Carbonate (Calcium) 600 Mg Tablet, 600 MG PO DAILY, (Reported) Clonazepam (Klonopin) 0.5 Mg Tablet, 0.5 MG PO QID, (Reported) Cyanocobalamin (Vitamin B-12) (Vitamin B-12) 500 Mcg Tablet, 500 MCG PO DAILY, (Reported) Esomeprazole Magnesium (Nexium) 40 Mg Capsule.dr, 40 MG PO BID, (Reported) Ferrous Sulfate (Iron) 325 Mg Tablet, 325 MG PO BID, (Reported) Gabapentin (Gabapentin) 300 Mg Cap, BID, (Reported) Levocetirizine Dihydrochloride (Levocetirizine Dihydrochloride) 5 Mg Tablet, 5 MG PO QPM, (Reported) Lisinopril (Lisinopril) 5 Mg Tablet, 5 MG PO DAILY, (Reported) Multivit-Mins/Iron/Folic/Lycop (Centrum Men's Tablet) 1 Each Tablet, 1 TAB PO DAILY, (Reported) Prazosin HCl (Minipress) 1 Mg Cap, 2 MG PO DAILY, (Reported) Trazodone HCl (Trazodone HCl) 50 Mg Tablet, 50 MG PO QPM, (Reported) Venlafaxine HCl (Effexor Xr) 150 Mg Cap, 375 MG DAILY, (Reported) Venlafaxine HCl (Effexor Xr) 75 Mg Cap.er.24h, 75 MG PO DAILY, (Reported) Verapamil Hcl (Verapamil ER Pm) 300 Mg Cap24h.pct, 300 MG PO DAILY, (Reported) Scheduled PRN Cyclobenzaprine HCl (Cyclobenzaprine HCl) 10 Mg Tablet, 10 MG PO TID PRN for MUSCLE SPASMS, #15 (Reported) BEVERLY ROYAL DO Jun 28, 2020 18:26
[2020-06-28] MEDS ORDERED: CYCLOBENZAPRINE 10MG TABLET PO PRN (18:30)
[2020-06-28] MEDS ORDERED: lisinopriL 5 MG TAB PO ONE (18:30)
[2020-06-28] MEDS ORDERED: CLON1TAB8 PO (19:11)
[2020-06-28] MEDS: GABAPENTIN 300 MG CAP PO SCH (20:32)
[2020-06-28] MEDS: ASPIRIN 81 MG ENTERIC TAB PO SCH (20:32)
[2020-06-28] MEDS: PANTOPRAZOLE 40MG TAB (PROTONIX) PO SCH (20:33)
[2020-06-28] MEDS: PERCOCET 5MG/325MG TAB PO PRN (20:33)
[2020-06-28] MEDS: FERROUS SULFATE 325MG TAB PO SCH (20:33)
[2020-06-28] MEDS: ceFAZolin SOD 1 GM in D5W MINI-BAG PLUS 50 ML IV SCH (20:34)
[2020-06-28] MEDS ORDERED: ARIPiprazole 2 MG TAB PO SCH (21:00)
[2020-06-28] MEDS ORDERED: PRAZOSIN 1 MG CAP PO SCH (21:00)
[2020-06-28] MEDS ORDERED: clonazePAM 0.5 MG TAB PO PRN (21:00)
[2020-06-28] MEDS ORDERED: traZODone 50 MG TAB PO SCH (21:00)
[2020-06-28] MEDS: ceFAZolin SOD 2 GM in IV 1 EA IV SCH (22:08)
[2020-06-28] MEDS: VERAPAMIL 120 MG SR TAB PO SCH (23:26)
[2020-06-29 01:00] VITALS: O2SAT 92
[2020-06-29] MEDS: PERCOCET 5MG/325MG TAB PO PRN ×4 (01:12→14:10)
[2020-06-29] MEDS: ceFAZolin SOD 1 GM in D5W MINI-BAG PLUS 50 ML IV SCH ×2 (05:34→12:55)
[2020-06-29 05:52] VITALS: BP 130/79
[2020-06-29] MEDS ORDERED: ECOT81TA5 PO (06:25)
[2020-06-29] MEDS ORDERED: PERC5TAB12 PO (06:25)
[2020-06-29] MEDS: ceFAZolin SOD 2 GM in IV 1 EA IV SCH ×2 (06:36→12:55)
[2020-06-29 08:11] LABS: HEMATOCRIT 43.9 % (42.0-52.0); MEAN CORPUSCULAR HEMOGLOBIN 30.2 pg (27.0-33.0); MEAN CORPUSCULAR HGB CONC 31.9 g/dl (32.0-36.5); MEAN CORPUSCULAR VOLUME 94.6 fl (80.0-96.0); PLATELET COUNT, AUTOMATED 375 10^3/uL (150-450); RED BLOOD COUNT 4.64 10^6/uL (4.30-6.10); WHITE BLOOD COUNT 11.5 10^3/uL (4.0-10.0)
[2020-06-29 08:37] LABS: ALBUMIN 3.6 GM/DL (3.2-5.2); ALT/SGPT 23 U/L (12-78); BILIRUBIN,TOTAL 0.4 MG/DL (0.2-1.0); BLOOD UREA NITROGEN 17 MG/DL (7-18); CALCIUM LEVEL 8.7 MG/DL (8.8-10.2); CARBON DIOXIDE LEVEL 30 MEQ/L (21-32); CHLORIDE LEVEL 104 MEQ/L (98-107); GLOMERULAR FILTRATION RATE > 60.0 (>49); GLUCOSE, FASTING 115 MG/DL (70-100); POTASSIUM SERUM 4.5 MEQ/L (3.5-5.1); SODIUM LEVEL 139 MEQ/L (136-145); TOTAL PROTEIN 6.2 GM/DL (6.4-8.2)
[2020-06-29] MEDS ORDERED: MULTIVITAMINS/MINERALS THERAP 1 TAB PO SCH (09:00)
[2020-06-29] MEDS ORDERED: FLUBLOK(EGG FREE)(QUAD)INFLUENZA VACC 0.5ML SYRINGE 18YRS & OLDER IM ONE (09:00)
[2020-06-29] MEDS ORDERED: CYANOCOBALAMIN 500 MCG TAB PO SCH (09:00)
[2020-06-29] MEDS ORDERED: ATORVASTATIN 20 MG TAB PO SCH (09:00)
[2020-06-29] MEDS ORDERED: MOM 30ML SUSPENSION UDC PO SCH (09:00)
[2020-06-29] MEDS ORDERED: VENLAFAXINE **XR** 75MG CAPSULE PO SCH ×2 (09:00)
[2020-06-29] MEDS ORDERED: lisinopriL 5 MG TAB PO SCH (09:00)
[2020-06-29] MEDS ORDERED: MIRALAX *UNIT DOSE* 17GM PACKET PO SCH (09:00)
[2020-06-29] MEDS: GABAPENTIN 300 MG CAP PO SCH (09:59)
[2020-06-29] MEDS: FERROUS SULFATE 325MG TAB PO SCH (09:59)
[2020-06-29] MEDS: ASPIRIN 81 MG ENTERIC TAB PO SCH (09:59)
[2020-06-29] MEDS: PANTOPRAZOLE 40MG TAB (PROTONIX) PO SCH (09:59)
[2020-06-29 10:00] VITALS: BP 133/79
[2020-06-29] MEDS: VERAPAMIL 120 MG SR TAB PO SCH (10:02)
[2020-06-29 10:03] VITALS: BP 139/85
== END 2020-06-29 14:30 | disposition home or self-care (01) | DRG 470 ==
LOC: M OR 08:55 → M MS5PR 15:20
PROVIDERS: ADMIT Orthopaedic Surgery; ATTEND Orthopaedic Surgery
PROC: 0SRC0J9 Replacement of Right Knee Joint with Synthetic Substitute, Cemented, Open Approach (ICD-10-PCS; principal; 2020-06-28 11:15)
DX: M17.11 Unilateral primary osteoarthritis, right knee (principal); N18.30 Chronic kidney disease, stage 3 unspecified; E78.5 Hyperlipidemia, unspecified; F41.9 Anxiety disorder, unspecified; I12.9 Hypertensive chronic kidney disease with stage 1 through stage 4 chronic kidney disease, or unspecified chronic kidney disease; J30.9 Allergic rhinitis, unspecified; F32.9 Major depressive disorder, single episode, unspecified; F43.10 Post-traumatic stress disorder, unspecified; R26.89 Other abnormalities of gait and mobility; Z79.899 Other long term (current) drug therapy; Z98.84 Bariatric surgery status; Z88.8 Allergy status to other drugs, medicaments and biological substances

== ENCOUNTER → 2020-09-10 | Outpatient (REF) | payer MEDICARE ==
[~2020-09-10] MED LIST changes: -ACETAMINOPHEN 500 MG TAB PO ONE; +CLON1TAB8 PO; +ECOT81TA5 PO; +GABA-282 PO; -GABA-843 PO; -LISI-542 PO; +LISI-898 PO; -LR 1,000 ML IV ONE; -ceFAZolin SOD 1 GM in D5W MINI-BAG PLUS 50 ML IV ONE; -ceFAZolin SOD 2 GM in IV 1 EA IV ONE
[2020-09-10 13:32] LABS: PERCENT SATURATION 17.3 % (19.7-50.0)
[2020-09-10 13:44] LABS: FOLATE 19.3 NG/ML
== END ==
LOC: M LAB REF 12:46
PROVIDERS: ATTEND Internal Medicine
DX: Z98.84 Bariatric surgery status (principal); D50.9 Iron deficiency anemia, unspecified

== ENCOUNTER → 2020-12-30 | Outpatient (CLI) | payer MEDICARE ==
[~2020-12-30] MED LIST changes: +ISOVUE-300 61% 50ML VIAL As Ordered ONE; +LIDOCAINE 1% MDV 20ML VIAL As Ordered ONE; +TRIAMCINOLONE ACETONIDE SUSP 40 MG/ML VIAL (J3301) As Ordered ONE
--- NOTE | 2020-12-31 18:37 | REP ---
INDICATION: UNI PRIMARY OSTEOARTHRITIS RT HIP. COMPARISON: None. TECHNIQUE: The procedure was performed under the direct supervision of Dr. Lugo. The benefits and risks including but not limited to pain infection and bleeding and anaphylaxis were explained to the patient and informed consent was obtained. The right femoral neck was localized using fluoroscopic guidance. The skin was prepped and draped in a sterile fashion. 1% lidocaine was used as a local anesthetic. Using fluoroscopic guidance, and last image hold technology, a 22-gauge spinal needle was inserted and advanced to the femoral neck. 0.5 ml of Isovue-300 was injected to verify placement. Six ml of a solution containing 5 ml of 1% Xylocaine and 1 mL of Kenalog 40 mg was injected. The needle was then removed. The patient tolerated the procedure well and there were no immediate complications. Less than 6 seconds of fluoro time was utilized for this procedure. FINDINGS: None IMPRESSION: Fluoro guidance for right hip injection. <Electronically signed by Jason Campbell > 12/30/20 1640 <Electronically signed by Hernesto Lugo > 12/31/20 [id number]
== END ==
LOC: M RADPRO 12:31
PROVIDERS: ATTEND Orthopaedic Surgery
DX: M16.11 Unilateral primary osteoarthritis, right hip (principal)
CPT/HCPCS: 20610; 77002; J3301; Q9967

== ENCOUNTER → 2021-02-06 | Outpatient (REF) | payer MEDICARE, BC ==
[~2021-02-06] MED LIST changes: -ISOVUE-300 61% 50ML VIAL As Ordered ONE; -LIDOCAINE 1% MDV 20ML VIAL As Ordered ONE; -TRIAMCINOLONE ACETONIDE SUSP 40 MG/ML VIAL (J3301) As Ordered ONE
== END ==
LOC: M LAB REF 17:22
PROVIDERS: ATTEND Physician Assistant
DX: S81.811D Laceration without foreign body, right lower leg, subsequent encounter (principal)

== ENCOUNTER → 2021-06-03 | Outpatient (CLI) | payer BC, MEDICARE ==
[~2021-06-03] MED LIST changes: +ISOVUE-300 61% 50ML VIAL As Ordered ONE; +LIDOCAINE 1% MDV 20ML VIAL As Ordered ONE; +TRIAMCINOLONE ACETONIDE SUSP 40 MG/ML VIAL (J3301) As Ordered ONE
--- NOTE | 2021-06-03 16:36 | REP ---
INDICATION: OSTEOARTHRITIS RT HIP. COMPARISON: None. TECHNIQUE: The procedure was performed under the direct supervision of Dr. Lugo. The benefits and risks including but not limited to pain infection and bleeding and anaphylaxis were explained to the patient and informed consent was obtained. The right femoral neck was localized using fluoroscopic guidance. The skin was prepped and draped in a sterile fashion. 1% lidocaine was used as a local anesthetic. Using fluoroscopic guidance, and last image hold technology, a 22-gauge spinal needle was inserted and advanced to the femoral neck. 0.5 ml of Isovue-300 was injected to verify placement. Six ml of a solution containing 5 ml of 1% Xylocaine and 1 mL of Kenalog 40 mg was injected. The needle was then removed. The patient tolerated the procedure well and there were no immediate complications. Less than 6 seconds of fluoro time was utilized for this procedure. FINDINGS: None IMPRESSION: Fluoro guidance for right hip injection. <Electronically signed by Jason Campbell > 06/03/21 1417 <Electronically signed by Hernesto Lugo > 06/03/21 [id number]
== END ==
LOC: M RADPRO 12:16
PROVIDERS: ATTEND Orthopaedic Surgery
DX: M16.11 Unilateral primary osteoarthritis, right hip (principal)
CPT/HCPCS: 20610; 77002; J3301; Q9967

== ENCOUNTER → 2021-09-19 | Outpatient (REF) | payer MEDICARE, BC ==
[~2021-09-19] MED LIST changes: -ISOVUE-300 61% 50ML VIAL As Ordered ONE; -LIDOCAINE 1% MDV 20ML VIAL As Ordered ONE; -LISI-898 PO; +LISI5TAB11 PO; -TRIAMCINOLONE ACETONIDE SUSP 40 MG/ML VIAL (J3301) As Ordered ONE
[2021-09-19 17:39] LABS: PERCENT SATURATION 22.7 % (19.7-50.0)
== END ==
LOC: M LAB REF 16:00
PROVIDERS: ATTEND Internal Medicine
DX: D50.9 Iron deficiency anemia, unspecified (principal)

== ENCOUNTER → 2021-09-27 | Outpatient (CLI) | payer BC, MEDICARE ==
[~2021-09-27] MED LIST changes: +ISOVUE-300 61% 50ML VIAL As Ordered ONE; +LIDOCAINE 1% MDV 20ML VIAL As Ordered ONE; +TRIAMCINOLONE ACETONIDE SUSP 40 MG/ML VIAL (J3301) As Ordered ONE
== END ==
LOC: M RADPRO 13:47
PROVIDERS: ATTEND Orthopaedic Surgery
DX: M16.11 Unilateral primary osteoarthritis, right hip (principal)
CPT/HCPCS: 20610; 77002; J3301; Q9967

== ENCOUNTER → 2021-10-10 | Outpatient (CLI) | payer MEDICARE ==
[~2021-10-10] MED LIST changes: -ISOVUE-300 61% 50ML VIAL As Ordered ONE; -LIDOCAINE 1% MDV 20ML VIAL As Ordered ONE; -TRIAMCINOLONE ACETONIDE SUSP 40 MG/ML VIAL (J3301) As Ordered ONE
== END ==
LOC: M PLAIMG 09:22
PROVIDERS: ATTEND Surgery
DX: L59.9 Disorder of the skin and subcutaneous tissue related to radiation, unspecified (principal); M19.012 Primary osteoarthritis, left shoulder; Z87.81 Personal history of (healed) traumatic fracture; M85.622 Other cyst of bone, left upper arm

== ENCOUNTER → 2021-12-09 | Outpatient (REF) | payer MEDICARE ==
[2021-12-09 17:31] LABS: PERCENT SATURATION 20.1 % (19.7-50.0)
[2021-12-12 10:46] LABS: FOLATE 13.3 NG/ML
== END ==
LOC: M LAB REF 16:22
PROVIDERS: ATTEND Internal Medicine
DX: Z98.84 Bariatric surgery status (principal)

== ENCOUNTER → 2022-02-07 | Outpatient (REF) | payer MEDICARE | LOC: M SFHCWOUN 15:55 | PROVIDERS: ATTEND Surgery | DX: L72.11 Pilar cyst (principal) ==

== ENCOUNTER → 2022-02-20 | Outpatient (CLI) | payer MEDICARE ==
[~2022-02-20] MED LIST changes: +ISOVUE-300 61% 50ML VIAL As Ordered ONE; +LIDOCAINE 1% MDV 20ML VIAL As Ordered ONE; +TRIAMCINOLONE ACETONIDE SUSP 40 MG/ML VIAL (J3301) As Ordered ONE
== END ==
LOC: M RADPRO 15:19
PROVIDERS: ATTEND Orthopaedic Surgery
DX: M16.11 Unilateral primary osteoarthritis, right hip (principal)
CPT/HCPCS: 20610; 76000; J3301; Q9967

== ENCOUNTER → 2022-05-15 | Outpatient (REF) | payer MEDICARE ==
[~2022-05-15] MED LIST changes: -ISOVUE-300 61% 50ML VIAL As Ordered ONE; -LIDOCAINE 1% MDV 20ML VIAL As Ordered ONE; -TRIAMCINOLONE ACETONIDE SUSP 40 MG/ML VIAL (J3301) As Ordered ONE
== END ==
LOC: M SFHCWOUN 17:20
PROVIDERS: ATTEND Surgery
DX: L85.9 Epidermal thickening, unspecified (principal); L90.5 Scar conditions and fibrosis of skin

== ENCOUNTER → 2022-06-07 | Outpatient (CLI) | payer MEDICARE | LOC: M LABSMTC 08:56 | PROVIDERS: ATTEND Anesthesiology | DX: Z01.812 Encounter for preprocedural laboratory examination (principal); Z11.52 Encounter for screening for COVID-19 ==

== ENCOUNTER 2022-06-12 07:05 | Day surgery (SDC) | payer MEDICARE ==
[~2022-06-12] VITALS: Ht 175.3 cm; Wt 146.5 kg
[~2022-06-12 07:05] MED LIST changes: +NS 1,000 ML IV ONE
[2022-06-12 09:13] VITALS: BP 132/78
== END 2022-06-12 09:17 | disposition home or self-care (01) ==
LOC: M OPP 07:05
PROVIDERS: ATTEND Internal Medicine Gastroenterology
DX: Z12.11 Encounter for screening for malignant neoplasm of colon (principal); K64.0 First degree hemorrhoids; Z98.84 Bariatric surgery status; I12.9 Hypertensive chronic kidney disease with stage 1 through stage 4 chronic kidney disease, or unspecified chronic kidney disease; E78.5 Hyperlipidemia, unspecified; K21.9 Gastro-esophageal reflux disease without esophagitis; M19.90 Unspecified osteoarthritis, unspecified site; F41.9 Anxiety disorder, unspecified; F32.A Depression, unspecified; G43.909 Migraine, unspecified, not intractable, without status migrainosus; F43.10 Post-traumatic stress disorder, unspecified; G47.30 Sleep apnea, unspecified; N18.4 Chronic kidney disease, stage 4 (severe); Z88.8 Allergy status to other drugs, medicaments and biological substances; Z79.899 Other long term (current) drug therapy
CPT/HCPCS: 43239; 88305; G0121

== ENCOUNTER → 2022-08-04 | Outpatient (CLI) | payer MEDICARE ==
[~2022-08-04] MED LIST changes: +ISOVUE-300 61% 100ML VIAL ONE; +LIDOCAINE 1% MDV 20ML VIAL ONE; -NS 1,000 ML IV ONE; +TRIAMCINOLONE ACETONIDE SUSP 40MG/ML 1ML VIAL ONE
== END ==
LOC: M PLAIMG 14:32
PROVIDERS: ATTEND Orthopaedic Surgery
DX: M16.11 Unilateral primary osteoarthritis, right hip (principal)
CPT/HCPCS: 20610; 76000; Q9967

== ENCOUNTER 2022-08-27 11:45 | Emergency (ER) | payer MEDICARE ==
[~2022-08-27] VITALS: Ht 175.3 cm; Wt 144.8 kg
[~2022-08-27 11:45] MED LIST changes: -ISOVUE-300 61% 100ML VIAL ONE; -LIDOCAINE 1% MDV 20ML VIAL ONE; -TRIAMCINOLONE ACETONIDE SUSP 40MG/ML 1ML VIAL ONE
[2022-08-27 12:24] LABS: BASO # 0.1 10^3/uL (0.0-0.2); EOS # 0.2 10^3/uL (0.0-0.5); EOS % 3.2 % (0.0-3.0); HEMATOCRIT 44.4 % (42.0-52.0); LYMPH # 2.2 10^3/uL (1.5-5.0); LYMPH % 30.8 % (24.0-44.0); MEAN CORPUSCULAR HEMOGLOBIN 29.4 pg (27.0-33.0); MEAN CORPUSCULAR HGB CONC 31.5 g/dl (32.0-36.5); MEAN CORPUSCULAR VOLUME 93.1 fl (80.0-96.0); MONO # 0.3 10^3/uL (0.0-0.8); MONO % 4.1 % (2.0-8.0); NEUTROPHILS # 4.3 10^3/uL (1.5-8.5); NEUTROPHILS % 60.6 % (36.0-66.0); PLATELET COUNT, AUTOMATED 341 10^3/uL (150-450); RED BLOOD COUNT 4.77 10^6/uL (4.30-6.10); WHITE BLOOD COUNT 7.1 10^3/uL (4.0-10.0)
[2022-08-27] MEDS ORDERED: TETRACAINE 0.5% OPHTH SOLN 4ML OU ONE (12:30)
[2022-08-27 12:55] LABS: BLOOD UREA NITROGEN 22 MG/DL (9-23); CALCIUM LEVEL 9.7 MG/DL (8.3-10.6); CARBON DIOXIDE LEVEL 27 MMOL/L (20-31); CHLORIDE LEVEL 109 MMOL/L (98-107); CREATININE FOR GFR 0.89 MG/DL (0.70-1.30); GLOMERULAR FILTRATION RATE > 60.0 (>49); GLUCOSE, FASTING 96 MG/DL (74-106); POTASSIUM SERUM 4.6 MMOL/L (3.5-5.1); SODIUM LEVEL 143 MMOL/L (136-145)
[2022-08-27] MEDS ORDERED: ISOVUE-370 76% 100ML VIAL As Ordered ONE (13:01)
[2022-08-27 13:12] LABS: INR 0.87
[2022-08-27 13:13] LABS: PARTIAL THROMBOPLASTIN TIME 34.2 SECONDS (24.8-34.2)
[2022-08-27 13:33] LABS: CK-MB VALUE MASS 3.3 NG/ML (<3.6)
[2022-08-27 13:37] LABS: CPK CREATINE PHOSPHOKINASE 181 U/L (46-171); MB/CK RELATIVE INDEX 1.82 (< OR =4)
[2022-08-27 14:03] LABS: RSV AMPLIFICATION NEGATIVE (NEGATIVE)
[2022-08-27 15:15] VITALS: BP 144/72
== END 2022-08-27 15:31 | disposition home or self-care (01) ==
LOC: M ED 11:45
DX: H53.142 Visual discomfort, left eye (principal); I12.9 Hypertensive chronic kidney disease with stage 1 through stage 4 chronic kidney disease, or unspecified chronic kidney disease; E78.5 Hyperlipidemia, unspecified; K21.9 Gastro-esophageal reflux disease without esophagitis; N18.9 Chronic kidney disease, unspecified; Z98.84 Bariatric surgery status; Z88.8 Allergy status to other drugs, medicaments and biological substances; Z79.899 Other long term (current) drug therapy
CPT/HCPCS: 36415; 70450; 70496; 70498; 71045; 80047; 80048; 82550; 82553; 84484; 85025; 85610; 85652; 85730; 87631; 93005; 93041; 94760; 99285; Q9967

== ENCOUNTER → 2022-10-17 | Outpatient (REF) | payer MEDICARE ==
[2022-10-17 14:20] LABS: IRON (FE) 57 UG/DL (65-175)
[2022-10-17 14:22] LABS: PERCENT SATURATION 17.5 % (19.7-50.0); TOTAL IRON BINDING CAPACITY 325 UG/DL (250-425)
[2022-10-17 14:23] LABS: FOLATE > 24.0 NG/ML (>5.4); VITAMIN B12 LEVEL 317 PG/ML (211-911)
== END ==
LOC: M LAB REF 12:40
PROVIDERS: ATTEND Internal Medicine
DX: D50.9 Iron deficiency anemia, unspecified (principal); Z98.84 Bariatric surgery status

== ENCOUNTER → 2023-05-17 | Outpatient (CLI) | payer MEDICARE | LOC: M RAD 08:13 | PROVIDERS: ATTEND Internal Medicine | DX: K76.0 Fatty (change of) liver, not elsewhere classified (principal); Z90.49 Acquired absence of other specified parts of digestive tract; R14.0 Abdominal distension (gaseous) ==

== ENCOUNTER → 2023-07-30 | Outpatient (CLI) | payer MEDICARE ==
[~2023-07-30] MED LIST changes: -EFFE150C2 PO; +EFFE150C3 PO; +ISOVUE-300 61% 100ML VIAL As Ordered ONE; +LIDOCAINE 1% MDV 20ML VIAL As Ordered ONE; +TRIAMCINOLONE ACETONIDE SUSP 40MG/ML 1ML VIAL As Ordered ONE
== END ==
LOC: M RAD 13:06
PROVIDERS: ATTEND Orthopaedic Surgery
DX: M16.11 Unilateral primary osteoarthritis, right hip (principal)
CPT/HCPCS: 20610; 77002; J3301; Q9967

== ENCOUNTER → 2023-12-21 | Outpatient (REF) | payer MEDICARE ==
[~2023-12-21] MED LIST changes: -ISOVUE-300 61% 100ML VIAL As Ordered ONE; -KLON0.5T PO; +KLON0.5T8 PO; -LIDOCAINE 1% MDV 20ML VIAL As Ordered ONE; -TRIAMCINOLONE ACETONIDE SUSP 40MG/ML 1ML VIAL As Ordered ONE
[2023-12-21 18:41] LABS: FERRITIN 46.4 NG/ML (10.5-307.3); TOTAL IRON BINDING CAPACITY 313 UG/DL (250-425)
[2023-12-21 18:42] LABS: PHOSPHORUS LEVEL 3.1 MG/DL (2.4-5.1)
[2023-12-21 18:43] LABS: IRON (FE) 49 UG/DL (65-175); PERCENT SATURATION 15.7 % (19.7-50.0); VITAMIN B12 LEVEL 486 PG/ML (211-911)
[2023-12-21 18:51] LABS: FOLATE > 24.0 NG/ML (>5.4)
== END ==
LOC: M LAB REF 16:28
PROVIDERS: ATTEND Internal Medicine
DX: Z98.84 Bariatric surgery status (principal); Z79.899 Other long term (current) drug therapy; Z86.39 Personal history of other endocrine, nutritional and metabolic disease

== ENCOUNTER → 2024-07-11 | Outpatient (REF) | payer MEDICARE ==
[~2024-07-11] MED LIST changes: +GABA-1172 PO; -GABA-282 PO
[2024-07-11 17:42] LABS: BLOOD UREA NITROGEN 19 MG/DL (9-23); CALCIUM LEVEL 9.6 MG/DL (8.3-10.6); CARBON DIOXIDE LEVEL 30 MMOL/L (20-31); CHLORIDE LEVEL 106 MMOL/L (98-107); CREATININE FOR GFR 0.83 MG/DL (0.70-1.30); GLOMERULAR FILTRATION RATE > 60.0 (>49); GLUCOSE, FASTING 85 MG/DL (74-106); POTASSIUM SERUM 5.4 MMOL/L (3.5-5.1); SODIUM LEVEL 144 MMOL/L (136-145)
== END ==
LOC: M LABDRWAD 16:57
PROVIDERS: ATTEND Internal Medicine
DX: I12.9 Hypertensive chronic kidney disease with stage 1 through stage 4 chronic kidney disease, or unspecified chronic kidney disease (principal)

== ENCOUNTER → 2024-07-31 | Outpatient (REF) | payer MEDICARE ==
[2024-07-31 14:44] LABS: BLOOD UREA NITROGEN 21 MG/DL (9-23); CALCIUM LEVEL 9.6 MG/DL (8.3-10.6); CARBON DIOXIDE LEVEL 28 MMOL/L (20-31); CHLORIDE LEVEL 108 MMOL/L (98-107); GLOMERULAR FILTRATION RATE > 60.0 (>49); GLUCOSE, FASTING 86 MG/DL (74-106); POTASSIUM SERUM 4.3 MMOL/L (3.5-5.1); SODIUM LEVEL 145 MMOL/L (136-145)
== END ==
LOC: M LABDRWAD 13:52
PROVIDERS: ATTEND Internal Medicine
DX: E87.5 Hyperkalemia (principal)

== ENCOUNTER → 2024-09-30 | Outpatient (REF) | payer MEDICARE | LOC: M LAB REF 12:23 | PROVIDERS: ATTEND Internal Medicine | DX: K76.0 Fatty (change of) liver, not elsewhere classified (principal); K74.00 Hepatic fibrosis, unspecified ==

== ENCOUNTER 2025-03-06 10:06 | Inpatient (IN) | payer MEDICARE ==
[~2025-03-06] VITALS: Ht 175.3 cm; Wt 157.0 kg
[2025-03-06] MEDS: PANTOPRAZOLE 40MG TAB PO SCH (09:00)
[~2025-03-06 10:06] MED LIST changes: -FLOM0.4C39 PO; +TAMS-18 PO; -VERA300C6 PO; +VERA300C7 PO
[2025-03-06] MEDS ORDERED: OLME20TA50 PO (10:18)
[2025-03-06] MEDS: ONDANSETRON 4MG 2ML VIAL IV ONE (11:29)
[2025-03-06] MEDS: MORPHINE 4 MG/ML 1 ML VIAL IV ONE ×2 (11:30→14:04)
[2025-03-06] MEDS: KETOROLAC 30 MG/ML 1 ML VIAL IV ONE (11:31)
[2025-03-06 11:48] LABS: PLATELET COUNT, AUTOMATED 372 10^3/uL (150-450)
[2025-03-06 12:09] LABS: ALT/SGPT 34.0 U/L (7.0-40); AST/SGOT 24.0 U/L (<34); CALCIUM LEVEL 8.7 MG/DL (8.3-10.6); CARBON DIOXIDE LEVEL 25.0 MMOL/L (20-31); CHLORIDE LEVEL 104.0 MMOL/L (98-107); CREATININE FOR GFR 1.27 MG/DL (0.70-1.30); GLOMERULAR FILTRATION RATE 63.1 (>49); POTASSIUM SERUM 4.7 MMOL/L (3.5-5.1); SODIUM LEVEL 141.0 MMOL/L (136-145)
[2025-03-06] MEDS: NS (Normal Saline) 0.9% 1,000 ML IV ONE (12:15)
[2025-03-06 12:19] LABS: BASOPHILS 1 % (0-1); LYMPHOCYTES 3 % (16-44); MONOCYTES 1 % (0-5); NEUTROPHILS 84 % (28-66); PLATELET ESTIMATE NORMAL (NORMAL)
[2025-03-06 12:20] LABS: DOHLE BODIES 1+
[2025-03-06] MEDS ORDERED: ISOVUE-370 76% 100 ML VIAL As Ordered ONE (12:31)
[2025-03-06] MEDS ORDERED: SUGAMMADEX SODIUM 500 MG/5 ML VIAL As Ordered ONE (13:50)
[2025-03-06] MEDS ORDERED: LIDOCAINE 2% 100 MG/5 ML SDV (FOR ANES.) As Ordered ONE (13:50)
[2025-03-06] MEDS ORDERED: ROCURONIUM BROMIDE 50MG/5ML VIAL As Ordered ONE (13:50)
[2025-03-06] MEDS ORDERED: dexAMETHasone 4 MG/ML 1 ML VIAL As Ordered ONE (13:50)
[2025-03-06] MEDS ORDERED: ONDANSETRON 4MG 2ML VIAL As Ordered ONE (13:50)
[2025-03-06] MEDS ORDERED: MIDAZOLAM INJ 2 MG/2 ML VIAL As Ordered ONE (13:59)
[2025-03-06] MEDS ORDERED: VASOPRESSIN INJ 20UNITS/ML 1ML VIAL As Ordered ONE (15:00)
[2025-03-06] MEDS: metroNIDAZOLE/NACL 500 MG (5 MG/ML) 100 ML BAG As Ordered ONE (15:21)
[2025-03-06] MEDS ORDERED: ACETAMINOPHEN 1000MG/100ML IV BAG As Ordered ONE (15:42)
[2025-03-06] MEDS ORDERED: dexmedeTOMIDine (4 MCG/ML) 200 MCG/50 ML BTL As Ordered ONE (15:53)
[2025-03-06] MEDS ORDERED: HYDROmorphone HCL 2 MG/ML 1 ML VIAL As Ordered ONE (16:12)
[2025-03-06] MEDS ORDERED: HYDROMORPHONE HCL 0.5 MG/0.5 ML SYRINGE IV PRN (16:15)
[2025-03-06] MEDS ORDERED: ONDANSETRON 4MG 2ML VIAL IV PRN (16:15)
[2025-03-06] MEDS ORDERED: LACRILUBE (AKWA TEARS) OPHTH OINT 3.5 GM As Ordered ONE (16:42)
[2025-03-06] MEDS ORDERED: ABIL1TAB11 PO (17:39)
[2025-03-06] MEDS ORDERED: CLON0.5T2 PO (17:39)
[2025-03-06] MEDS ORDERED: TRAZ-257 PO (17:39)
[2025-03-06] MEDS ORDERED: PRAZ5CAP PO (17:40)
[2025-03-06] MEDS ORDERED: ESOM40CA35 PO (17:54)
[2025-03-06] MEDS ORDERED: EXCETAB32 PO (17:55)
[2025-03-06] MEDS ORDERED: HOME MED LIST COMPLETE! XX SCH (18:05)
[2025-03-06] MEDS: NS (Normal Saline) 0.9% 1,000 ML IV SCH (18:37)
[2025-03-06] MEDS: PIPERACILLIN/TAZOBACTAM SOD 3.375 GM in DEXTROSE 5% (D5W) ADV/MINI-BAG 50 ML IV SCH (18:54)
[2025-03-06 19:29] VITALS: BP 129/90; TEMP 97; O2SAT 93
[2025-03-06 20:00] VITALS: BP 120/80; TEMP 97; O2SAT 93
[2025-03-06] MEDS: KETOROLAC 30 MG/ML 1 ML VIAL IV PRN (20:07)
[2025-03-06] MEDS: SENNOSIDES/DOCUSATE SODIUM 8.6 MG/50MG TAB PO SCH (21:00)
[2025-03-06 21:28] VITALS: BP 124/80; TEMP 97.3; O2SAT 93
[2025-03-06 22:46] VITALS: BP 118/77; TEMP 97; O2SAT 96
[2025-03-06 23:35] VITALS: BP 120/77; TEMP 97; O2SAT 94
[2025-03-07 00:33] VITALS: BP 123/77; TEMP 97.5; O2SAT 94
[2025-03-07 04:32] VITALS: BP 155/74; TEMP 97.7; O2SAT 96
[2025-03-07 07:36] LABS: PLATELET COUNT, AUTOMATED 378 10^3/uL (150-450)
[2025-03-07] MEDS ORDERED: PILL CUTTER 1 EACH XX PRN (07:40)
[2025-03-07 08:12] LABS: ALT/SGPT 27.0 U/L (7.0-40); AST/SGOT 15.0 U/L (<34); CALCIUM LEVEL 8.1 MG/DL (8.3-10.6); CARBON DIOXIDE LEVEL 27.0 MMOL/L (20-31); CHLORIDE LEVEL 107.0 MMOL/L (98-107); CREATININE FOR GFR 1.1 MG/DL (0.70-1.30); GLOMERULAR FILTRATION RATE 75.0 (>49); MAGNESIUM LEVEL 2.0 MG/DL (1.8-2.4); POTASSIUM SERUM 4.8 MMOL/L (3.5-5.1); SODIUM LEVEL 142.0 MMOL/L (136-145)
[2025-03-07] MEDS: GABAPENTIN 300 MG CAP PO SCH (09:00)
[2025-03-07] MEDS: ENOXAPARIN 40 MG/0.4 ML SYRINGE (J1650 PER 10MG) SC SCH (09:00)
[2025-03-07] MEDS: clonazePAM 0.5 MG TAB PO SCH (09:00)
[2025-03-07] MEDS: VENLAFAXINE **XR** 75MG CAPSULE PO SCH (09:00)
[2025-03-07 10:00] VITALS: BP 127/82; TEMP 97.7; O2SAT 94
[2025-03-07] MEDS: MORPHINE 2 MG/ML 1 ML VIAL IV PRN (12:26)
[2025-03-07 14:00] VITALS: BP 141/87; TEMP 97.5; O2SAT 95
[2025-03-07 20:00] VITALS: BP 143/90; TEMP 97.2; O2SAT 93
[2025-03-07] MEDS: OLMESARTAN MEDOXOMIL 20 MG TAB PO SCH (21:00)
[2025-03-07] MEDS: PRAZOSIN 1 MG CAP PO SCH (21:00)
[2025-03-07] MEDS: ARIPiprazole 15 MG TAB PO SCH (21:00)
[2025-03-08 06:00] VITALS: BP 160/89; TEMP 97.2; O2SAT 93
[2025-03-08 07:19] LABS: PLATELET COUNT, AUTOMATED 443 10^3/uL (150-450)
[2025-03-08 07:52] LABS: ALT/SGPT 28 U/L (7.0-40); AST/SGOT 22 U/L (<34); CALCIUM LEVEL 7.8 MG/DL (8.3-10.6); CARBON DIOXIDE LEVEL 22 MMOL/L (20-31); CHLORIDE LEVEL 107 MMOL/L (98-107); CREATININE FOR GFR 0.83 MG/DL (0.70-1.30); GLOMERULAR FILTRATION RATE > 90.0 (>49); MAGNESIUM LEVEL 2.1 MG/DL (1.8-2.4); POTASSIUM SERUM 4.6 MMOL/L (3.5-5.1); SODIUM LEVEL 142 MMOL/L (136-145)
[2025-03-08 14:00] VITALS: BP 137/77; TEMP 97.9; O2SAT 95
[2025-03-08] MEDS: ONDANSETRON 4MG 2ML VIAL IV PRN (17:30)
[2025-03-09 06:00] VITALS: BP 138/72; TEMP 97.3; O2SAT 95
[2025-03-09 06:29] LABS: PLATELET COUNT, AUTOMATED 456 10^3/uL (150-450)
[2025-03-09 07:02] LABS: ALT/SGPT 41 U/L (7.0-40); AST/SGOT 32 U/L (<34); CALCIUM LEVEL 7.8 MG/DL (8.3-10.6); CARBON DIOXIDE LEVEL 24 MMOL/L (20-31); CHLORIDE LEVEL 107 MMOL/L (98-107); CREATININE FOR GFR 0.76 MG/DL (0.70-1.30); GLOMERULAR FILTRATION RATE > 90.0 (>49); MAGNESIUM LEVEL 1.9 MG/DL (1.8-2.4); POTASSIUM SERUM 4.4 MMOL/L (3.5-5.1); SODIUM LEVEL 142 MMOL/L (136-145)
[2025-03-09 14:00] VITALS: BP 168/94; TEMP 97.7; O2SAT 95
[2025-03-09 20:48] VITALS: BP 165/75; TEMP 97.2; O2SAT 95
[2025-03-09 20:59] VITALS: BP 165/75
[2025-03-10 06:15] VITALS: BP 154/71; TEMP 97.9; O2SAT 94
[2025-03-10 07:35] LABS: PLATELET COUNT, AUTOMATED 447 10^3/uL (150-450)
[2025-03-10 08:05] LABS: ALT/SGPT 65 U/L (7.0-40); AST/SGOT 43 U/L (<34); CALCIUM LEVEL 8.7 MG/DL (8.3-10.6); CARBON DIOXIDE LEVEL 25 MMOL/L (20-31); CHLORIDE LEVEL 108 MMOL/L (98-107); CREATININE FOR GFR 0.69 MG/DL (0.70-1.30); GLOMERULAR FILTRATION RATE > 90.0 (>49); MAGNESIUM LEVEL 1.8 MG/DL (1.8-2.4); POTASSIUM SERUM 4.2 MMOL/L (3.5-5.1); SODIUM LEVEL 142 MMOL/L (136-145)
[2025-03-10 20:36] VITALS: TEMP 97.3
== END 2025-03-10 20:47 | disposition home or self-care (01) | DRG 331 ==
LOC: M ED 10:06 → M SDC 13:52 → M RR INP 17:03 → M MS5PR 18:50
PROVIDERS: ADMIT Surgery; ATTEND Surgery
PROC: 0DB80ZZ Excision of Small Intestine, Open Approach (ICD-10-PCS; principal; 2025-03-06 13:38)
DX: K63.1 Perforation of intestine (nontraumatic) (principal); I10 Essential (primary) hypertension; E78.5 Hyperlipidemia, unspecified; G47.33 Obstructive sleep apnea (adult) (pediatric); K21.9 Gastro-esophageal reflux disease without esophagitis; M54.9 Dorsalgia, unspecified; Z98.84 Bariatric surgery status; Z90.49 Acquired absence of other specified parts of digestive tract; Z79.899 Other long term (current) drug therapy; Z88.8 Allergy status to other drugs, medicaments and biological substances

== ENCOUNTER → 2025-04-14 | Outpatient (REF) | payer MEDICARE ==
[~2025-04-14] MED LIST changes: +ABIL1TAB11 PO; +CLON0.5T2 PO; +ESOM40CA35 PO; +EXCETAB32 PO; +OLME20TA50 PO; +PRAZ5CAP PO; +TRAZ-257 PO
[2025-04-14 13:21] LABS: IRON (FE) 51 UG/DL (65-175); PERCENT SATURATION 13.6 % (19.7-50.0); PHOSPHORUS LEVEL 4.7 MG/DL (2.4-5.1)
[2025-04-14 13:22] LABS: TOTAL 25(OH) VITAMIN D 40.3 NG/ML (20.0-100.0)
[2025-04-14 13:23] LABS: VITAMIN B12 LEVEL 405 PG/ML (211-911)
== END ==
LOC: M LAB REF 11:54
PROVIDERS: ATTEND Internal Medicine
DX: N18.31 Chronic kidney disease, stage 3a (principal); Z98.84 Bariatric surgery status

== ENCOUNTER → 2025-04-23 | Outpatient (CLI) | payer MEDICARE ==
[~2025-04-23] MED LIST changes: +ISOVUE-370 76% 100 ML VIAL As Ordered ONE
== END ==
LOC: M RAD 16:47
PROVIDERS: ATTEND Internal Medicine
DX: R93.2 Abnormal findings on diagnostic imaging of liver and biliary tract (principal)
CPT/HCPCS: 74170; Q9967

== ENCOUNTER → 2025-05-26 | Outpatient (CLI) | payer MEDICARE ==
[~2025-05-26] MED LIST changes: -ISOVUE-370 76% 100 ML VIAL As Ordered ONE
== END ==
LOC: M WUC 13:08
PROVIDERS: ATTEND Physician Assistant
DX: M25.512 Pain in left shoulder (principal); M19.012 Primary osteoarthritis, left shoulder

== ENCOUNTER 2025-06-12 08:31 | Outpatient (CLI) | payer MEDICARE ==
[~2025-06-12] VITALS: Ht 175.3 cm; Wt 152.7 kg
[~2025-06-12 08:31] MED LIST changes: +ALBUTEROL SULFATE 2.5 MG/0.5 ML INH CONCENTRATE NEB SOLN INH PRN; +EPINEPHrine INJ 1 MG/ML 1ML AMP IM PRN; +diphenhydrAMINE 50 MG/ML VIAL IV PRN
[2025-06-12 09:42] VITALS: BP 158/74; O2SAT 98
[2025-06-12] MEDS: ACETAMINOPHEN 650MG PO PRIOR TO INFUSION PO ONE (09:45)
[2025-06-12] MEDS: diphenhydrAMINE 25MG PO PRIOR TO INFUSION PO ONE (09:45)
[2025-06-12] MEDS: IRON SUCROSE 300 MG in NS 250 ML IV ONE (09:58)
[2025-06-12 11:55] VITALS: BP 124/74; O2SAT 94
== END 2025-06-12 11:55 | disposition home or self-care (01) ==
LOC: M INFU 08:31
PROVIDERS: ATTEND Specialist
DX: D50.9 Iron deficiency anemia, unspecified (principal); Z88.8 Allergy status to other drugs, medicaments and biological substances
CPT/HCPCS: 96365; 96366; J1756